=== PATIENT | male | born 1985 | race Caucasian/White ===

== ENCOUNTER → 2018-10-15 09:23 | Outpatient (CLI) | payer OTHER, SELFPAY ==
--- NOTE | 2018-10-18 11:50 | PM.PFT.1 ---
Pulmonary Function Test Referral & Results Date Patient Seen: 10/15/18 Requesting provider: Jacob Rahman Indication: Pre chemo Results: The spirometry demonstrates an FVC of 5.30 L which is 104% of predicted. The FEV1 was measured at 4.30 L which is 104% of predicted. The FEV1/FVC ratio was 81 which is 100% of predicted. Following the administration of bronchodilator there was no appreciable change to above normal numbers. Lung volumes show an SVC of 6.08 L which is 124% of predicted. The diffusing capacity was measured at 32.20 which is 108% of predicted. The maximum voluntary ventilation was normal Interpretation: This study demonstrates normal pulmonary function
== END ==
PROVIDERS: Visit Provider Internal Medicine Hematology & Oncology
DX: C61 Malignant neoplasm of prostate (principal)
CPT/HCPCS: 94060; 94726; 94729

== ENCOUNTER 2018-10-24 11:10 | Day surgery (SDC) | payer OTHER, SELFPAY ==
[2018-10-24] VITALS (8 sets, daily range): BP systolic 97–125; BP diastolic 54–78; PULSE 54–108; RESP 11–16; TEMP 36.3–36.8; O2SAT 94–99; BMI 24.1
--- NOTE | 2018-10-24 | DI.RAD.S_ITS ---
PROCEDURE: XR CHEST 1V INDICATIONS: PORT A CATH TECHNIQUE: One view of the chest was acquired. COMPARISON: None. FINDINGS: Surgical changes and devices: Left chest wall Port-A-Cath has been placed. Tip of the Port-A-Cath projects to the mid SVC. Lungs and pleura: No pleural effusions or pneumothorax. Lungs are clear. Mediastinum: Mediastinal contours appear normal. Heart size is normal. Bones and chest wall: No suspicious bony lesions. Overlying soft tissues appear unremarkable. IMPRESSION: Status post placement of left chest wall Port-A-Cath. Dictated by: Aline Lindsey MD, PhD on 10/24/2018 at 16:23 Approved by: Aline Lindsey MD, PhD on 10/24/2018 at 16:25
[2018-10-24] MEDS: LACTATED RINGERS 1,000 ML 42 ML IV (12:18)
[2018-10-24] MEDS: CEFAZOLIN 2 GM/100 ML FROZ.PIGGY IV (15:17)
--- NOTE | 2018-10-24 15:21 | PM.HP.1 ---
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 He presents today to undergo a Port-A-Cath placement. He denies any new problems or symptoms. He denies any sick contacts. He reports he generally feels well today. Patient History Medical History Seminoma of descended right testis (Acute ~06/05/18) Testicular pain, right (Acute ~04/2018) Surgical History History of facial surgery (Acute) History of orchiectomy, unilateral (Acute 05/04/18) Family & Social History Family History: Reviewed 10/24/18 by Paola Veliz MD Social History: household members significant other Tobacco & Substance use: Smoking Status Never smoker alcohol intake current alcohol intake frequency a few times a week Substance Use Type does not use Meds Home Medications Medication Instructions Recorded Confirmed Type ondansetron 8 mg PO BID-TID PRN #20 tab 10/24/18 10/24/18 Rx prochlorperazine maleate 10 mg PO Q6-8H PRN #30 tab 10/24/18 10/24/18 Rx [Compazine] Allergies Allergy/AdvReac Type Severity Reaction Status Date / Time No Known Drug Allergies Allergy Verified 10/05/18 17:06 Review of Systems Review of Systems All systems reviewed & are unremarkable except as noted in HPI and below Exam Vital Signs (past 8 hours): - 10/24/18 11:52 Temperature 97.6 F Pulse Rate 108 H Respiratory Rate 16 Blood Pressure 125/64 Pulse Oximetry 98 Oxygen Delivery Method Room Air Narrative Exam Narrative: Very pleasant and healthy-appearing gentleman in no distress HEENT: Normocephalic and atraumatic, pupils equal round reactive to light accommodation with anicteric sclera Lungs: Clear to auscultation bilaterally Heart: Regular rate and rhythm without murmur rub or gallop Abdomen: Soft, nontender, active bowel sounds Extremities: Warm and well perfused Assessment & Plan Plan: Assessment/Plan Narrative: Pleasant 33-year-old gentleman with recurrent seminoma. We discussed the risks and benefits of port placement the patient expressed desire to complete the procedure today.
--- NOTE | 2018-10-24 15:37 | SUR.OPER ---
Supine on padded OR bed, head on pillow, arm padded and tucked at side, legs uncrossed, safety belt at thigh, tape over blanket over lower legs .
[2018-10-24] MEDS: LIDOCAINE 1% W/EPI INJ 20 ML INJ (15:42)
[2018-10-24] MEDS: SODIUM CHLORIDE 0.9% FLUSH 10 ML IV (15:43)
[2018-10-24] MEDS: BUPIVACAINE 0.5% (PF) VIAL 30 ML INJ (15:43)
--- NOTE | 2018-10-24 19:34 | PM.OP.1 ---
Operative Date/Time/Diagnoses Date of procedure: 10/24/18 Time of procedure: 15:34 Pre-op diagnosis: Recurrent testicular cancer Post-op diagnosis: same Procedure & Clinicians Procedure: Left subclavian PowerPort placement Same procedure as scheduled: Yes Indications: Malignancy requiring chemotherapy Surgeon: Paola Veliz Anesthesia Type: General (Dr. Carrasco) Operative Notes Findings: Left subclavian power port in good position in the superior vena cava Closure Type: primary Specimen(s): none sent Implants & Drains: Low-profile power port Estimated Blood Loss (mL): 10 Procedure in detail: After obtaining informed consent, the patient was brought to the operating room and placed in the supine position on the operating table. Following successful induction of general endotracheal anesthesia, appropriate padding of all bony prominences, and placement of appropriate monitors, the left chest was prepped and draped in a standard surgical fashion. A timeout was held per SCOAP protocol. A mixture of local anesthetics was infiltrated in the deltopectoral groove on the left side. The right subclavian vein was accessed via the Seldinger technique and a wire was gently placed into the vein. Fluoroscopy was used to verify position of the wire in the subclavian vein. We next created a pocket of approximately 2 cm inferior to the access site of the vein. This was checked for size and found to fit the port nicely. The included tunneling device was used to place the tubing and the pocket connecting it to the access site of the subclavian vein. The tubing was trimmed to an appropriate length and connected to the Port-A-Cath. The Port-A-Cath was sewn into place in the pocket using interrupted Prolene sutures. The pocket was closed in 2 layers. The dilator and introducer were then gently passed over the wire and into the subclavian vein. The wire and dilator were removed leaving only the introducer. The tubing was then placed in the introducer and the introducer removed per supervisor major appliance assembly's directions. The port was then flushed with saline solution and found to be functional and in good position. It was then hep-locked with 2000 units of heparin. The incision was closed in 2 layers with Vicryl and Monocryl sutures. Dermabond was applied to the skin. All sponge, needle, and instrument counts were correct at the conclusion of the case. Patient was allowed to awaken from anesthesia and taken to the post-anesthesia care unit in good condition. Complications: none Condition: stable Disposition: PACU Plan for aftercare: 1. Discharge to home 2. The port is ready for use
== END 2018-10-24 17:16 | disposition home or self-care (01) ==
PROVIDERS: Visit Provider Surgery
PROC: (CPT 36561; principal; 2018-10-24 15:00)
DX: C62.91 Malignant neoplasm of right testis, unspecified whether descended or undescended (principal); Z45.2 Encounter for adjustment and management of vascular access device
CPT/HCPCS: 36561; 71045; 76000; 99213; C1788; J0690; J1644; J2250; J2405; J2704; J3010

== ENCOUNTER → 2018-12-03 09:03 | Outpatient (CLI) | payer OTHER, SELFPAY ==
--- NOTE | 2018-12-03 10:06 | DI.CT.S_ITS ---
PROCEDURE: CT CHEST ABD PEL W CON INDICATIONS: check response to treatment TECHNIQUE: After the administration of oral and intravenous contrast, 5 mm thick sections acquired from the lung apices to the symphysis. 5 mm coronal and sagittal reformats were performed, with additional 7 mm coronal MIP reformats through the lungs. For radiation dose reduction, the following was used: automated exposure control, adjustment of mA and/or kV according to patient size. COMPARISON: None. FINDINGS: Image quality: Excellent. CHEST: Lungs and pleura: No acute airspace opacities. No lung nodules or masses. No pleural effusions or pneumothorax. Central and peripheral airways appear patent and normal in caliber. Mediastinum: Heart size is normal. No pericardial effusion. No mediastinal or hilar adenopathy by size criteria. Thoracic aorta and central pulmonary arteries are normal in size. Esophagus is normal in caliber. No hiatal hernia. Chest wall: Left chest wall Port-A-Cath is noted with tip ending in the proximal SVC. No axillary or supraclavicular adenopathy by size criteria. Thyroid gland is normal where visualized. ABDOMEN: Solid organs: Liver is normal in size and enhancement. Gallbladder is normal. Biliary system is non dilated. Pancreas enhances normally. Spleen is normal in size and enhancement. No adrenal nodules. Kidneys demonstrate normal size and enhancement, without hydronephrosis. A 1-2 mm nonobstructing left renal stone. The appendix is normal. Peritoneum and bowel: Bowel loops demonstrate normal wall thickness and caliber. No free fluid or air. Nodes and vessels: No retroperitoneal or mesenteric adenopathy by size criteria. Aorta and inferior vena cava are normal in size. Miscellaneous: No ventral hernias. PELVIS: Genitourinary: Bladder wall thickness is normal. Miscellaneous: No inguinal hernias or adenopathy. Bones: No suspicious bony lesions. No vertebral body compression fractures. IMPRESSION: 1. No evidence of metastatic disease. 2. No lymphadenopathy based on size criteria. 3. 1-2 mm nonobstructing left renal stone. Dictated by: Aline Lindsey MD, PhD on 12/03/2018 at 10:40 Approved by: Aline Lindsey MD, PhD on 12/03/2018 at 10:46
== END ==
DX: C62.91 Malignant neoplasm of right testis, unspecified whether descended or undescended (principal); N20.0 Calculus of kidney
CPT/HCPCS: 71260; 74177; Q9967

== ENCOUNTER 2018-12-15 19:45 | Emergency (ER) | payer OTHER, SELFPAY ==
[2018-12-15 20:05] VITALS: BP 111/73; PULSE 82; RESP 16; TEMP 37.5; O2SAT 98
--- NOTE | 2018-12-15 20:21 | DI.RAD.S_ITS ---
PROCEDURE: XR CHEST 1V INDICATIONS: suspected sepsis TECHNIQUE: One view of the chest was acquired. COMPARISON: [facility], CR, XR CHEST 1V, 10/24/2018, 16:32. FINDINGS: Surgical changes and devices: Left subclavian Mediport in stable position. Lungs and pleura: Lungs are clear. No pleural effusions or pneumothorax. Mediastinum: Mediastinal contours appear normal. Heart size is normal. Bones and chest wall: No suspicious bony lesions. Overlying soft tissues appear unremarkable. IMPRESSION: No acute parenchymal consolidation.. Dictated by: Lucy Silverman M.D. on 12/15/2018 at 21:00 Approved by: Lucy Silverman M.D. on 12/15/2018 at 21:01
[2018-12-15] MEDS: ONDANSETRON 4 MG/2 ML INJ IV (21:05)
[2018-12-15] MEDS: SODIUM CHLORIDE 0.9% 1,000 ML 1000 ML IV ×2 (21:05→23:28)
[2018-12-15 21:16] LABS: Add Manual Diff / Slide Review NO; Basophils Absolute Auto 0 /uL (0-100); Eosinophils Absolute Auto 0 /uL (0-450); Eosinophils Percent Auto 0.2 % (2-4); Hematocrit 34.2 % (41-53); Hemoglobin 12.1 g/dL (13.5-17.5); Lymphocytes Absolute Auto 1000 /uL (1100-4500); Mean Corpuscular HGB Conc 35.3 % (30-36); Mean Corpuscular Hemoglobin 32.3 PG (26-34); Mean Corpuscular Volume 91.5 fL (80-100); Monocytes Absolute Auto 100 /uL (0-900); Monocytes Percent Auto 1.4 % (3-14); Neutrophils Absolute Auto 2800 /uL (1500-7000); Neutrophils Percent Auto 73.4 % (50-75); Platelet Count 342 X10^3/uL (150-400); Red Blood Cell Count 3.74 X10^6/uL (4.5-5.9); Red Cell Distribution Width 14.6 % (11.6-14.8); White Blood Cell Count 3.8 X10^3/uL (4.5-11.0)
[2018-12-15 21:19] LABS: Lactate (Lactic Acid) 0.8 mmol/L (0.7-2.1); PTT Partial Thromboplastin Tim 26 SECONDS (26.4-36.2)
[2018-12-15 21:28] VITALS: BP 105/68; PULSE 63; RESP 13; O2SAT 94
[2018-12-15 21:39] LABS: Procalcitonin < 0.05 ng/mL (<0.5)
[2018-12-15 22:00] VITALS: BP 110/69; PULSE 68; RESP 16; O2SAT 98
--- NOTE | 2018-12-15 22:01 | ED_ITS ---
HPI - Nausea/Vomiting/Diarrhea General Chief complaint: Nausea/Vomiting/Diarrhea Stated complaint: cancer patient,vomiting Time Seen by Provider: 12/15/18 21:50 Source: patient Mode of arrival: ambulatory Limitations: no limitations History of Present Illness HPI Narrative: The patient was started on chemotherapy October 2018 for testicular cancer. He is followed locally by Dr. Ivy, oncology. He developed nausea and vomiting today, multiple episodes. He has antiemetics at home, he actually vomited Zofran. He has had a little bit of fluid today, he has had urine output. He denies associated fever or chills. His last dose of chemo meds was , 2 days ago. He has had no dizziness, visual changes or headaches. He denies chest pain or dyspnea. He has mild upper abdominal pain with the vomiting. He has no diarrhea. He has no hematemesis. Related Data Home Medications Medication Instructions Recorded Confirmed ibuprofen [Advil] 400 mg PO QID PRN 11/20/18 11/20/18 Miralax 17 g PO DAILY PRN 12/13/18 12/13/18 docusate sodium 2 cap PO DAILY PRN MDD 300 mg 12/13/18 12/13/18 Previous Rx's Medication Instructions Recorded lidocaine-prilocaine 1 applictn TOP PRN PRN #30 gram 10/24/18 ondansetron 8 mg PO BID-TID PRN #20 tab 10/24/18 oxycodone-acetaminophen [Percocet] 1 tab PO Q4-6H PRN #14 tab MDD 4 10/24/18 prochlorperazine maleate 10 mg PO Q6-8H PRN #30 tab 10/24/18 [Compazine] levofloxacin 500 mg PO DAILY #14 tab 12/03/18 lorazepam [Ativan] 0.5 mg PO BID-TID PRN #30 tab 12/12/18 Allergies Allergy/AdvReac Type Severity Reaction Status Date / Time No Known Drug Allergies Allergy Verified 12/15/18 20:09 Review of Systems Review of Systems ROS Unobtainable: All systems reviewed & are unremarkable except as noted in HPI and below Constitutional Denies chills, Denies fever(s), Denies lethargy, Denies weakness and Reports other ( he looks fatigued) Eyes Denies change in vision, Denies eye discharge and Denies irritation ENT Ears, Nose, Mouth, and Throat: Denies change in voice, Denies neck pain and Denies sore throat Cardiovascular Denies chest pain, Denies irregular heart rhythm, Denies lightheadedness, Denies palpitations, Denies dyspnea, Denies dyspnea on exertion and Denies orthopnea Respiratory Denies cough, Denies dyspnea, Denies dyspnea on exertion and Denies wheezing Gastrointestinal Gastrointestinal: Reports abdominal pain, Denies diarrhea, Denies loose stools, Reports nausea, Reports vomiting and Denies hematemesis Genitourinary Reports other ( normal urine output, no discomfort) Musculoskeletal Denies back pain and Denies neck pain Integumentary/Breasts Denies pruritus, Denies erythema, Denies rash and Denies wounds Neurologic Denies weakness Endocrine Denies palpitations Allergic/Immunologic Denies wheezing [facility] Medical History Testicular cancer (Acute) Seminoma of descended right testis (Acute ~06/05/18) Testicular pain, right (Acute ~04/2018) Surgical History History of facial surgery (Acute) History of orchiectomy, unilateral (Acute 05/04/18) Family History Grandmother Lung cancer Oral cancer Other Testicular cancer Social History household members: significant other Smoking Status: Never smoker alcohol intake: current substance use type: does not use Family History Grandmother Lung cancer Oral cancer Other Testicular cancer Social History household members: significant other Smoking Status: Never smoker alcohol intake: current substance use type: does not use Exam Initial Vital Signs Initial Vital Signs: Vital Signs Temperature 99.5 F 12/15/18 20:05 Pulse Rate 82 12/15/18 20:05 Respiratory Rate 16 12/15/18 20:05 Blood Pressure 111/73 12/15/18 20:05 Pulse Oximetry 98 12/15/18 20:05 Const General: cooperative, well developed and well groomed Nutritional Appearance: well nourished Orientation: alert, awake, oriented x3 and not confused [facility] Head: normocephalic and atraumatic Ears: external ears normal and TM's normal bilaterally Nose: external nose normal and No nasal discharge Face and sinus: sinuses nontender, face symmetric, no sinus tenderness and No dry mucous membranes Mouth: oral mucosae normal and moist mucous membranes Teeth and gingiva: dentition normal Throat: tonsils normal and uvula midline Eyes Conjunctivae: conjunctivae normal Neck Lymphatic: No lymphadenopathy Chest Chest: normal inspection of the chest Resp Effort & Inspection: normal respiratory effort, able to speak in complete sentences, no respiratory distress and no use of accessory muscles Auscultation: clear to auscultation bilaterally, no rales, no rhonchi and no wheezes Cardio Rate: regular rate Rhythm: regular rhythm Heart Sounds: no click, no gallops, no murmurs and no rubs Pulses: normal peripheral pulses GI Inspection: non-distended Palpation: soft, no hepatosplenomegaly, No pulsatile mass and tender ( mild upper abdominal tenderness without guarding or rebound.) Auscultation: normal bowel sounds Back/Spine/Pelvis Back: No CVA tenderness Skin General: no rashes or lesions noted, No jaundice and No petechiae Neuro General: alert, oriented x3, gait normal and no focal motor deficits Speech: speech normal Extrem General: full ROM, no clubbing, cyanosis or edema, no pedal edema and no calf tenderness Course Orders Ordered: ED Orders 12/15/18 20:21 XR chest 1V Stat 12/15/18 20:50 Blood Culture Stat Complete Blood Count AUTO DIFF Stat Comprehensive Metabolic Panel Stat Lactate (Lactic Acid) Stat Lipase Stat Partial Thromboplastin Time Stat Procalcitonin Stat Prothrombin Time INR Stat Discontinued Medications Sodium Chloride (Normal Saline 0.9%) 1,000 mls @ 1,000 mls/hr IV BOLUS ONE Stop: 12/15/18 21:19 Last Infusion: 12/15/18 23:26 Dose: 0 mls/hr Admin: 12/15/18 21:05 Dose: 1,000 mls/hr Sodium Chloride (Normal Saline 0.9%) 1,000 mls @ 1,000 mls/hr IV BOLUS ONE Stop: 12/16/18 00:09 Last Admin: 12/15/18 23:28 Dose: 1,000 mls/hr Ondansetron HCl (Zofran) 4 mg IV NOW ONE Stop: 12/15/18 20:22 Last Admin: 12/15/18 21:05 Dose: 4 mg Vital Signs - 8 hr 12/15/18 20:05 12/15/18 21:28 12/15/18 22:00 Temperature 99.5 F Pulse Rate 82 63 68 Respiratory Rate 16 13 16 Blood Pressure 111/73 Blood Pressure [Left Arm] 105/68 110/69 Pulse Oximetry 98 94 98 12/15/18 22:37 12/16/18 00:05 Temperature Pulse Rate 68 63 Respiratory Rate 16 16 Blood Pressure Blood Pressure [Left Arm] 110/66 103/64 Pulse Oximetry 91 95 MDM - Nausea/Vomiting/Diarrhea Lab Data Result diagrams: 12/15/18 20:50 12/15/18 20:50 Lab Results 12/15/18 12/15/18 12/15/18 Range/Units 20:50 20:50 20:50 WBC 3.8 L (4.5-11.0) X10^3/uL RBC 3.74 L (4.5-5.9) X10^6/uL Hgb 12.1 L (13.5-17.5) g/dL Hct 34.2 L (41-53) % MCV 91.5 D (80-100) fL MCH 32.3 (26-34) PG MCHC 35.3 (30-36) % RDW 14.6 (11.6-14.8) % Plt Count 342 (150-400) X10^3/uL Neut % (Auto) 73.4 (50-75) % Lymph % (Auto) 25.0 (25-40) % [place] % (Auto) 1.4 L (3-14) % Eos % (Auto) 0.2 L (2-4) % Baso % (Auto) 0.0 (0-2) % Neut # (Auto) 2800 (7774-4235) /uL Lymph # (Auto) 1000 L (4994-2436) /uL [place] # (Auto) 100 (0-900) /uL Eos # (Auto) 0 (0-450) /uL Baso # (Auto) 0 (0-100) /uL PT 12.0 (10.1-12.7) SECONDS INR 1.0 (0.9-1.3) APTT 26 L (26.4-36.2) SECONDS Sodium (137-145) mmol/L Potassium (3.4-5.1) mmol/L Chloride (98-107) mmol/L Carbon Dioxide (22-32) mmol/L BUN (9-20) mg/dL Creatinine (0.66-1.25) mg/dL Estimated GFR (>60) mL/min BUN/Creatinine Ratio (6-22) Glucose (70-100) mg/dL Lactate (0.7-2.1) mmol/L Calcium (8.4-10.2) mg/dL Total Bilirubin (0.2-1.3) mg/dL AST (17-59) IU/L ALT (21-72) IU/L Alkaline Phosphatase (38-126) U/L Total Protein (6.3-8.2) g/dL Albumin (3.5-5.0) g/dL Globulin (1.7-4.1) g/dL Albumin/Globulin Ratio (1.0-2.8) Lipase (23-300) U/L Procalcitonin < 0.05 (<0.5) ng/mL 12/15/18 12/15/18 Range/Units 20:50 20:50 WBC (4.5-11.0) X10^3/uL RBC (4.5-5.9) X10^6/uL Hgb (13.5-17.5) g/dL Hct (41-53) % MCV (80-100) fL MCH (26-34) PG MCHC (30-36) % RDW (11.6-14.8) % Plt Count (150-400) X10^3/uL Neut % (Auto) (50-75) % Lymph % (Auto) (25-40) % [place] % (Auto) (3-14) % Eos % (Auto) (2-4) % Baso % (Auto) (0-2) % Neut # (Auto) (6191-5658) /uL Lymph # (Auto) (1114-6790) /uL [place] # (Auto) (0-900) /uL Eos # (Auto) (0-450) /uL Baso # (Auto) (0-100) /uL PT (10.1-12.7) SECONDS INR (0.9-1.3) APTT (26.4-36.2) SECONDS Sodium 140 (137-145) mmol/L Potassium 3.8 (3.4-5.1) mmol/L Chloride 99 (98-107) mmol/L Carbon Dioxide 30 (22-32) mmol/L BUN 18 (9-20) mg/dL Creatinine 0.70 (0.66-1.25) mg/dL Estimated GFR > 60.0 (>60) mL/min BUN/Creatinine Ratio 25.7 H (6-22) Glucose 92 (70-100) mg/dL Lactate 0.8 (0.7-2.1) mmol/L Calcium 9.6 (8.4-10.2) mg/dL Total Bilirubin 1.5 H (0.2-1.3) mg/dL AST 47 (17-59) IU/L ALT 69 (21-72) IU/L Alkaline Phosphatase 66 (38-126) U/L Total Protein 7.1 (6.3-8.2) g/dL Albumin 4.5 (3.5-5.0) g/dL Globulin 2.6 (1.7-4.1) g/dL Albumin/Globulin Ratio 1.7 (1.0-2.8) Lipase 26 (23-300) U/L Procalcitonin (<0.5) ng/mL MDM Narrative Medical decision making narrative: The patient is vomiting likely associated with chemotherapy. He has Compazine and Zofran available at home. The medications have not helped much today. He has improved with IV hydration, and IV antiemetics. He is improved and will be discharged. Discharge Plan Departure Patient Disposition: Home Clinical Impression: Vomiting due to chemotherapy Instructions: DI for Dehydration -- Adult Activity Restrictions/Additional Instructions: Use the prescribed nausea medications as prescribed. You can use the Zofran as often as every 4-6 hours if necessary. Be sure you're drinking plenty of fluids, he should have clear urine output every 3-4 hours. Return here any time you need assistance. Prescriptions: No Action ondansetron 8 mg Tablet,Disintegrating 8 mg PO BID-TID PRN (Reason: Nausea) Qty: 20 RF: 2 prochlorperazine maleate [Compazine] 10 mg Tablet 10 mg PO Q6-8H PRN (Reason: Nausea) Qty: 30 RF: 2 ibuprofen [Advil] 200 mg Tablet 400 mg PO QID PRN (Reason: Pain (Scale Score 1-3)) RF: 0 levofloxacin 500 mg Tablet 500 mg PO DAILY Qty: 14 RF: 0 lorazepam [Ativan] 0.5 mg Tablet 0.5 mg PO BID-TID PRN (Reason: Nausea) Qty: 30 RF: 0 Miralax powder 17 g PO DAILY PRN (Reason: Constipation) RF: 0 docusate sodium 100 mg 2 cap PO DAILY MDD 300 mg PRN (Reason: Constipation) RF: 0 lidocaine-prilocaine 2.5-2.5 % cream 1 applictn TOP PRN PRN (Reason: pain) Qty: 30 RF: 2 oxycodone-acetaminophen [Percocet] 5-325 mg tablet 1 tab PO Q4-6H MDD 4 PRN (Reason: pain) Qty: 14 RF: 0
--- NOTE | 2018-12-15 22:18 | PC.NURSE ---
Late Entry at 2039-Port a suman on L chest access by using sterile technique and labs drawn including lactic and a set of blood culture.
--- NOTE | 2018-12-15 22:23 | PC.NURSE ---
Late entry at 2200- pt has been sipping Sprite and able to tolerate it w/o vomiting. Reports nausea improved alot. Arcelia delcid provided for cramping hunger pain in upper abdomen after verifying it with Dr. Bach.
[2018-12-15 22:32] LABS: Alanine Aminotransferase 69 IU/L (21-72); Albumin 4.5 g/dL (3.5-5.0); Albumin Globulin Ratio 1.7 (1.0-2.8); Alkaline Phosphatase 66 U/L (38-126); Aspartate Aminotransferase 47 IU/L (17-59); BUN Creatinine Ratio 25.7 (6-22); Bilirubin Total 1.5 mg/dL (0.2-1.3); Blood Urea Nitrogen 18 mg/dL (9-20); Calcium 9.6 mg/dL (8.4-10.2); Carbon Dioxide 30 mmol/L (22-32); Chloride 99 mmol/L (98-107); Estimated Glomerular Filt Rate > 60.0 mL/min (>60); Globulin 2.6 g/dL (1.7-4.1); Glucose 92 mg/dL (70-100); HEMOLYSIS 16 (0-50); Lipase 26 U/L (23-300); Potassium 3.8 mmol/L (3.4-5.1); Sodium 140 mmol/L (137-145); Total Protein 7.1 g/dL (6.3-8.2)
[2018-12-15 22:37] VITALS: BP 110/66; PULSE 68; RESP 16; O2SAT 91
[2018-12-15 23:00] VITALS: BP 103/64; PULSE 64; RESP 16; O2SAT 95
--- NOTE | 2018-12-15 23:05 | PC.NURSE ---
Tamara (spouse) states pt has a history of atypical migraine, hemiplegic migraine. In the past pt had received TPA for mimicking stroke symptoms but unaware of seizures. Tamara reports pt has been having weakness in L extremities and has been falling alot and trouble with balancing as well. He is currently waiting for occupational therapy for decreased hands functions
--- NOTE | 2018-12-15 23:23 | PC.NURSE ---
Late Entry at 2315-Dr Bach has difficult time waking up. Pt finally woke up from sleep and able to follow commands after repeated attempt and spouse states it takes a while for patient to wake up from sleep at home as well.
[2018-12-15 23:30] VITALS: BP 109/69; PULSE 64; RESP 16; O2SAT 95
[2018-12-16 00:05] VITALS: BP 103/64; PULSE 63; RESP 16; O2SAT 95
[2018-12-16 00:33] VITALS: BP 109/69; PULSE 71; RESP 21; O2SAT 98
== END 2018-12-16 00:48 | disposition home or self-care (01) ==
PROVIDERS: Emergency Medicine; Emergency Provider Emergency Medicine
DX: R11.10 Vomiting, unspecified (principal); T45.1X5A Adverse effect of antineoplastic and immunosuppressive drugs, initial encounter
CPT/HCPCS: 36415; 71045; 80053; 83605; 83690; 84145; 85025; 85610; 85730; 87040; 96361; 96374; 96375; 99284; J1642; J2405

== ENCOUNTER → 2019-02-18 08:15 | Outpatient (CLI) | payer OTHER, SELFPAY ==
--- NOTE | 2019-02-18 08:23 | DI.CT.S_ITS ---
PROCEDURE: CT CHEST ABD PEL W CON INDICATIONS: testicular cancer TECHNIQUE: After the administration of oral and intravenous contrast, 5 mm thick sections acquired from the lung apices to the symphysis. 5 mm coronal and sagittal reformats were performed, with additional 7 mm coronal MIP reformats through the lungs. For radiation dose reduction, the following was used: automated exposure control, adjustment of mA and/or kV according to patient size. COMPARISON: [facility], CT, CT CHEST ABD PEL W CON, 12/03/2018, 10:10. FINDINGS: Image quality: Excellent. CHEST: Lungs and pleura: No acute airspace opacities. No pleural effusions or pneumothorax. Central and peripheral airways appear patent and normal in caliber. Mediastinum: Heart size is normal. No pericardial effusion. No mediastinal or hilar adenopathy by size criteria. Thoracic aorta and central pulmonary arteries are normal in size. Esophagus is normal in caliber. There is a small hiatal hernia. Chest wall: No axillary or supraclavicular adenopathy by size criteria. Thyroid gland demonstrates no significant CT abnormality. There is a left-sided chest port is seen, with the tip within the superior to mid aspect of the superior vena cava. ABDOMEN: Solid organs: Liver is normal in size and enhancement. Gallbladder wall is not thickened. Biliary system is non dilated. Pancreas enhances normally. Spleen is normal in size and enhancement. Incidental note is made of an accessory spleen along the hilum of the primary spleen. No adrenal nodules. Kidneys demonstrate normal size and enhancement, without hydronephrosis. There is a 2 mm nonobstructing left kidney stone seen, as on series 2 image 72. Peritoneum and bowel: Bowel loops demonstrate normal wall thickness and caliber. No free fluid or air. Nodes and vessels: No retroperitoneal or mesenteric adenopathy by size criteria. Aorta and inferior vena cava are normal in size. Miscellaneous: A mild periumbilical hernia is seen, containing fat. PELVIS: Genitourinary: The bladder wall demonstrates circumferential thickening. Right orchectomy changes are partially seen. Miscellaneous: No inguinal hernias or adenopathy. Bones: No suspicious bony lesions. No vertebral body compression fractures. IMPRESSION: No findings of metastatic disease are seen. Right orchectomy changes are partially seen. Moderate circumferential bladder wall thickening is seen. This may be on the basis of incomplete distention or post treatment changes. Please also correlate with potential cystitis. Incidental note is made of: Small hiatal hernia 2 mm nonobstructing left-sided kidney stone Fat-containing periumbilical hernia Dictated by: Heron Conroy M.D. on 02/18/2019 at 9:42 Approved by: Heron Conroy M.D. on 02/18/2019 at 9:46
== END ==
DX: C62.90 Malignant neoplasm of unspecified testis, unspecified whether descended or undescended (principal); K44.9 Diaphragmatic hernia without obstruction or gangrene; N20.0 Calculus of kidney; K42.9 Umbilical hernia without obstruction or gangrene
CPT/HCPCS: 71260; 74177; Q9967

== ENCOUNTER 2019-04-03 07:20 | Day surgery (SDC) | payer OTHER, SELFPAY ==
[2019-04-03] VITALS (7 sets, daily range): BP systolic 92–114; BP diastolic 58–78; PULSE 50–60; RESP 8–15; TEMP 36.2–36.6; O2SAT 94–100
--- NOTE | 2019-04-03 | PATH_ITS ---
[facility] Accession Number: [id number] . 01 Material submitted: . body - PORT-A-CATH . 01 Clinical history: . FOR GROSS EXAM ONLY . 02 Diagnosis: Designated Port-A-Cath, Removal: in process inspector, gross only diagnosis. MRV/04/08/2019 . 02 Electronically signed: . Adelaide Watts MD, Pathologist NPI- [id number] . 01 Gross description: . Received unfixed, labeled Port-A-Cath, is a romero Bard implantable port (3.0 x 2.2 x 1.0 cm) stamped with [id number]. A segment of catheter (length-21.5 cm, diameter-0.2 cm) is attached. No tissue is present. The specimen is for gross description only. ([id number]) /MRV . 02 Pathologist provided ICD-10: Z45.2 . 02 CPT . 692502 Performed at: 01 [facility] [address] [facility], [place], [place] [id number] MD Margarito Puentes MD Phone: [phone] Performed at: 02 [facility] [address] [place], [place] [id number] MD Adelaide Watts MD Phone: [phone]
--- NOTE | 2019-04-03 08:05 | PM.HP.1 ---
History of Present Illness Date Patient Seen: 04/03/19 Time Patient Seen: 08:05 Chief complaint: [id number] Narrative: Pt seen and examined No changes since H and P on 04/01/19 Port removal for Left subclavian port planned Patient History Medical History (Updated 03/28/19 @ 10:52 by Slime Huggins RN) Port-A-Cath in place (Acute 10/24/18) Seminoma of descended right testis (Acute ~06/05/18) Testicular cancer (Acute) Testicular pain, right (Acute ~04/2018) Surgical History History of facial surgery (Acute) History of orchiectomy, unilateral (Acute 05/04/18) Family History Grandmother Lung cancer Oral cancer Other Testicular cancer Social History household members: significant other Smoking Status: Never smoker alcohol intake: current substance use type: does not use Family & Social History Social History: household members significant other Tobacco & Substance use: Smoking Status Never smoker alcohol intake current alcohol intake frequency a few times a week Substance Use Type does not use Meds Home Medications Medication Instructions Recorded Confirmed Type ketoconazole DAILY 04/03/19 History Allergies Allergy/AdvReac Type Severity Reaction Status Date / Time No Known Drug Allergies Allergy Verified 04/03/19 08:04 Exam Vital Signs (past 8 hours): - 04/03/19 08:00 Temperature 97.9 F Pulse Rate 57 L Respiratory Rate 15 Blood Pressure 113/70 Pulse Oximetry 98 Oxygen Delivery Method Room Air
[2019-04-03] MEDS: LACTATED RINGERS 1,000 ML 100 ML IV (08:13)
[2019-04-03] MEDS: CEFAZOLIN 2 GM/100 ML FROZ.PIGGY IV (08:35)
--- NOTE | 2019-04-03 08:58 | SUR.OPER ---
Supine on padded OR bed, head on pillow, arm padded and tucked at side, legs uncrossed, safety belt at thigh, tape over blanket over lower legs .
[2019-04-03] MEDS: BUPIVACAINE 0.25% W/ EPI 30 ML VIAL INJ (09:06)
--- NOTE | 2019-04-03 09:25 | PM.OP.1 ---
Operative Date/Time/Diagnoses Date of procedure: 04/03/19 Time of procedure: 09:25 Pre-op diagnosis: testicular cancer Post-op diagnosis: same Procedure & Clinicians Procedure: Removal of totally implanted venous access port of the left subclavian Same procedure as scheduled: Yes Indications: 33-year-old man who has completed all planned chemotherapy for his seminomatous testicular cancer. Both he and his oncologist would like the port removed. Surgeon: Hernandez Landrum Click Yes if Unassisted: Yes Anesthesia Type: General Operative Notes Findings: Port easily removed -tip not fractured Closure Type: primary Specimen(s): other (Port for gross identification only) Estimated Blood Loss (mL): 5 Procedure in detail: Patient was brought to the operating room and LMA was placed without incident. He was prepped and draped in usual sterile fashion and time-out was completed. His previously placed port reservoir was readily identified over the left pectoralis major muscle-the insertion scar was reopened with a scalpel. Using Bovie cautery the subcutaneous tissues were dissected until the catheter of the port was identified this was bluntly dissected free of adjacent tissue. I then followed the catheter less than 1 cm inferiorly to identify the reservoir. The pocket was then opened revealing the pseudo capsule. Two permanent sutures were then removed from the upper portion of the reservoir -connecting it to adjacent tissue. The port was then easily flipped out of its pocket. The patient was then placed in steep Trendelenburg position and the catheter was easily removed from the patient. The tip was inspected found to be without fracture. Direct pressure was held on the insertion site to stop bleeding. At this point the reservoir pocket was irrigated. I inspected the area make sure no permanent suture was retained. Hemostasis was confirmed. Local anesthetic was copiously infiltrated into the wound. In elliptical fashion I then excised the previous scar -so that there were fresh tissue edges. I then closed these edges together using a layer of deep dermal 3 0 Vicryl sutures and a subcuticular 3 0 monofilament absorbable suture. Skin glue was applied. The patient was awakened and brought to PACU without incident Complications: none Condition: stable Disposition: PACU Plan for aftercare: Follow-up in office in several weeks
[2019-04-03] MEDS: OXYCODONE/ACETAMINOPHEN 5/325 TABLET 1 TAB PO (10:43)
== END 2019-04-03 11:20 | disposition home or self-care (01) ==
PROVIDERS: PCP Preventive Medicine Public Health & General Preventive Medicine; Visit Provider Surgery
PROC: (CPT 36590; principal; 2019-04-03 08:45)
DX: Z45.2 Encounter for adjustment and management of vascular access device (principal); Z85.47 Personal history of malignant neoplasm of testis
CPT/HCPCS: 36590; 88300; J0690; J2250; J2405; J2704; J3010

== ENCOUNTER → 2019-04-20 10:31 | Outpatient (CLI) | payer OTHER, SELFPAY ==
[2019-04-20 11:01] LABS: Add Manual Diff / Slide Review NO; Basophils Absolute Auto 0 /uL (0-100); Basophils Percent Auto 0.4 % (0-2); Eosinophils Absolute Auto 200 /uL (0-450); Eosinophils Percent Auto 2.3 % (2-4); Hematocrit 44.8 % (41-53); Hemoglobin 15.4 g/dL (13.5-17.5); Lymphocytes Absolute Auto 1400 /uL (1100-4500); Lymphocytes Percent Auto 19.5 % (25-40); Mean Corpuscular HGB Conc 34.4 % (30-36); Mean Corpuscular Hemoglobin 33.3 PG (26-34); Mean Corpuscular Volume 96.7 fL (80-100); Monocytes Absolute Auto 600 /uL (0-900); Monocytes Percent Auto 8.5 % (3-14); Neutrophils Absolute Auto 4900 /uL (1500-7000); Neutrophils Percent Auto 69.3 % (50-75); Platelet Count 167 X10^3/uL (150-400); Red Blood Cell Count 4.63 X10^6/uL (4.5-5.9); Red Cell Distribution Width 11.9 % (11.6-14.8); White Blood Cell Count 7.1 X10^3/uL (4.5-11.0)
[2019-04-20 11:13] LABS: Alanine Aminotransferase 36 IU/L (21-72); Albumin 4.6 g/dL (3.5-5.0); Albumin Globulin Ratio 1.8 (1.0-2.8); Alkaline Phosphatase 98 U/L (38-126); Aspartate Aminotransferase 31 IU/L (17-59); BUN Creatinine Ratio 24.4 (6-22); Bilirubin Total 0.9 mg/dL (0.2-1.3); Blood Urea Nitrogen 22 mg/dL (9-20); Calcium 9.7 mg/dL (8.4-10.2); Carbon Dioxide 27 mmol/L (22-32); Chloride 104 mmol/L (98-107); Estimated Glomerular Filt Rate > 60.0 mL/min (>60); Globulin 2.6 g/dL (1.7-4.1); Glucose 91 mg/dL (70-100); HEMOLYSIS < 15 (0-50); Lactate Dehydrogenase 474 U/L (313-618); Potassium 4.6 mmol/L (3.4-5.1); Sodium 140 mmol/L (137-145); Total Protein 7.2 g/dL (6.3-8.2)
[2019-04-20 11:36] LABS: HCG Quantitative /Beta subunit < 2.39 mIU/mL (-2.40)
== END ==
PROVIDERS: PCP Preventive Medicine Public Health & General Preventive Medicine
DX: C62.90 Malignant neoplasm of unspecified testis, unspecified whether descended or undescended (principal)
CPT/HCPCS: 36415; 80053; 82105; 83615; 84702; 85025

== ENCOUNTER → 2019-05-17 09:03 | Outpatient (CLI) | payer OTHER, SELFPAY ==
--- NOTE | 2019-05-31 16:19 | PM.PFT.1 ---
Pulmonary Function Test Referral & Results Date Patient Seen: 05/17/19 Requesting provider: Andres Corona Results: The spirometry demonstrates an FVC of 5.53 L which is 109% of predicted. The FEV1 was measured at 3.54 L which is 86% of predicted. The FEV1/FVC ratio was 60 for which is 79% of predicted. Following the administration of bronchodilator there was a 29% improvement in FEV1 and a 120% improvement in FEF 25-75%. Lung volumes show an SVC of 5.63 L which is 115% of predicted. The diffusing capacity was measured at 33.31 which is 112% of predicted. The maximum voluntary ventilation was normal Interpretation: This study demonstrates perhaps very mild obstructive lung disease with evidence of significant benefit following bronchodilator. Compared to PFTs performed in September 2018, current study shows evidence of obstructive lung disease where prior study was entirely normal
== END ==
PROVIDERS: PCP Preventive Medicine Public Health & General Preventive Medicine; Visit Provider Preventive Medicine Public Health & General Preventive Medicine
DX: C62.90 Malignant neoplasm of unspecified testis, unspecified whether descended or undescended (principal)
CPT/HCPCS: 94060; 94726; 94729

== ENCOUNTER → 2019-07-11 12:46 | Outpatient (CLI) | payer OTHER, SELFPAY ==
--- NOTE | 2019-07-11 12:51 | DI.RAD.S_ITS ---
PROCEDURE: XR CHEST 2V INDICATIONS: f/u testicular cancer TECHNIQUE: 2 views of the chest were acquired. COMPARISON: [facility], CR, XR CHEST 1V, 12/15/2018, 20:24. FINDINGS: Surgical changes and devices: None. Lungs and pleura: Lungs are clear. No pleural effusions or pneumothorax. Bilateral symmetric appearing nipple shadows Mediastinum: Mediastinal contours are normal. Heart size is normal. Bones and chest wall: No suspicious bony abnormalities. Soft tissues appear unremarkable. IMPRESSION: No acute disease Dictated by: Quang Ma M.D. on 07/11/2019 at 14:59 Approved by: Quang Ma M.D. on 07/11/2019 at 15:00
--- NOTE | 2019-07-11 13:22 | DI.CT.S_ITS ---
PROCEDURE: CT CHEST ABD PEL W CON INDICATIONS: Testicular cancer surveillance TECHNIQUE: After the administration of oral and intravenous contrast, 5 mm thick sections acquired from the lung apices to the symphysis. 5 mm coronal and sagittal reformats were performed, with additional 7 mm coronal MIP reformats through the lungs. For radiation dose reduction, the following was used: automated exposure control, adjustment of mA and/or kV according to patient size. COMPARISON: [facility], CT, CT CHEST ABD PEL W CON, 02/18/2019, 9:24. FINDINGS: Image quality: Excellent. CHEST: Lungs and pleura: No acute consolidation. As the granuloma within the anterior right lung is unchanged. No pleural effusions or pneumothorax. Central and peripheral airways appear patent and normal in caliber. Mediastinum: Heart size is normal. No pericardial effusion. No mediastinal or hilar adenopathy by size criteria. Thoracic aorta and central pulmonary arteries are normal in size. Esophagus is normal in caliber. No hiatal hernia. Chest wall: No axillary or supraclavicular adenopathy by size criteria. Thyroid gland unremarkable. ABDOMEN: Solid organs: Liver is normal in size and enhancement. Gallbladder unremarkable. Biliary system is non dilated. Pancreas enhances normally. Spleen is normal in size and enhancement. No adrenal nodules. Kidneys demonstrate normal size and enhancement, without hydronephrosis. Peritoneum and bowel: Bowel loops demonstrate normal wall thickness and caliber. No free fluid or air. Nodes and vessels: No retroperitoneal or mesenteric adenopathy by size criteria. Aorta and inferior vena cava are normal in size. Tiny fat-containing umbilical hernia. PELVIS: Circumferential bladder wall thickening, grossly unchanged. Miscellaneous: No inguinal hernias or adenopathy. Bones: No suspicious bony lesions. No vertebral body compression fractures. IMPRESSION: No specific evidence of active metastatic disease. Redemonstration of circumferential bladder wall thickening, possible chronic versus recurrent cystitis as before. Please correlate clinically and if needed with urinalysis. Additional chronic and incidental findings as above. Dictated by: Quang Ma M.D. on 07/11/2019 at 16:02 Approved by: Quang Ma M.D. on 07/11/2019 at 16:08
== END ==
PROVIDERS: PCP Preventive Medicine Public Health & General Preventive Medicine; Visit Provider Preventive Medicine Public Health & General Preventive Medicine
DX: C62.90 Malignant neoplasm of unspecified testis, unspecified whether descended or undescended (principal)
CPT/HCPCS: 71046; 71260; 74177; Q9967

== ENCOUNTER → 2020-01-29 10:11 | Outpatient (CLI) | payer OTHER, SELFPAY ==
--- NOTE | 2020-01-29 10:12 | DI.US.S_ITS ---
PROCEDURE: US SCROTUM INDICATIONS: HISTORY OF RIGHT TESTICULAR CA WITH NEW LEFT TESTICULAR PAIN TECHNIQUE: Real-time scanning was performed of the scrotum and testicles, with image documentation. Color and pulse Doppler interrogation was performed of both testicles. COMPARISON: None. FINDINGS: Right: Orchiectomy. Left: Testicle is normal in size at 4 x 1.6 x 2.9 cm, and homogeneous in echotexture. Epididymis is normal in overall size. There is a 5 mm left epididymal cyst. There is a small left-sided hydrocele. No varicoceles. The overlying scrotal skin measures 5 mm in thickness. Doppler: Color and pulse Doppler demonstrate normal and symmetric arterial flow in the left testicle. IMPRESSION: Normal appearing left testicle, with normal appearing internal vascularity. Small left-sided hydrocele. Dictated by: Heron Conroy M.D. on 01/29/2020 at 9:54 Approved by: Heron Conroy M.D. on 01/29/2020 at 9:56
== END ==
PROVIDERS: PCP Preventive Medicine Public Health & General Preventive Medicine; Referring Provider Internal Medicine Hematology & Oncology; Visit Provider Internal Medicine Hematology & Oncology
DX: C62.91 Malignant neoplasm of right testis, unspecified whether descended or undescended (principal); N50.812 Left testicular pain
CPT/HCPCS: 76870; 99214

== ENCOUNTER → 2020-07-14 13:12 | Outpatient (CLI) | payer OTHER, SELFPAY ==
--- NOTE | 2020-07-14 13:15 | DI.CT.S_ITS ---
PROCEDURE: CT CHEST ABD PEL W CON INDICATIONS: right testicular seminoa TECHNIQUE: After the administration of oral and intravenous contrast, 5 mm thick sections acquired from the lung apices to the symphysis. 5 mm coronal and sagittal reformats were performed, with additional 7 mm coronal MIP reformats through the lungs. For radiation dose reduction, the following was used: automated exposure control, adjustment of mA and/or kV according to patient size. COMPARISON: [facility], CT, CT CHEST ABD PEL W CON, 07/11/2019, 13:36. FINDINGS: Image quality: Excellent. CHEST: Lungs and pleura: No acute airspace opacities. No pleural effusions or pneumothorax. Central and peripheral airways appear patent and normal in caliber. Mediastinum: Heart size is normal. No pericardial effusion. No mediastinal or hilar adenopathy by size criteria. Thoracic aorta and central pulmonary arteries are normal in size. Esophagus is normal in caliber. No hiatal hernia. Chest wall: No axillary or supraclavicular adenopathy by size criteria. Thyroid gland negative . ABDOMEN: Solid organs: Liver is normal in size and enhancement. Gallbladder negative . Biliary system is non dilated. Pancreas enhances normally. Spleen is normal in size and enhancement. No adrenal nodules. Kidneys demonstrate normal size and enhancement, without hydronephrosis. Peritoneum and bowel: Bowel loops demonstrate normal wall thickness and caliber. No free fluid or air. Normal appendix. Colonic diverticulosis is seen without evidence of acute complication. Nodes and vessels: No retroperitoneal or mesenteric adenopathy by size criteria. Aorta and inferior vena cava are normal in size. Miscellaneous: No ventral hernias. PELVIS: Genitourinary: Bladder wall thickness is normal. Miscellaneous: No inguinal hernias or adenopathy. Bones: No suspicious bony lesions. No vertebral body compression fractures. IMPRESSION: No evidence of distant metastatic disease identified. Incidental colonic diverticulosis Dictated by: Quang Ma M.D. on 07/14/2020 at 16:16 Approved by: Quang Ma M.D. on 07/14/2020 at 16:22
[2020-07-14 14:37] LABS: Add Manual Diff / Slide Review NO; Basophils Absolute Auto 0 /uL (0-100); Basophils Percent Auto 0.3 % (0-2); Eosinophils Absolute Auto 100 /uL (0-450); Eosinophils Percent Auto 1.7 % (2-4); Hematocrit 43.6 % (41-53); Hemoglobin 14.9 g/dL (13.5-17.5); Lymphocytes Absolute Auto 1800 /uL (1100-4500); Lymphocytes Percent Auto 29.5 % (25-40); Mean Corpuscular HGB Conc 34.1 % (30-36); Mean Corpuscular Hemoglobin 32.5 PG (26-34); Mean Corpuscular Volume 95.3 fL (80-100); Monocytes Absolute Auto 400 /uL (0-900); Monocytes Percent Auto 7.3 % (3-14); Neutrophils Absolute Auto 3700 /uL (1500-7000); Neutrophils Percent Auto 61.2 % (50-75); Platelet Count 195 X10^3/uL (150-400); Red Blood Cell Count 4.57 X10^6/uL (4.5-5.9)
[2020-07-14 14:48] LABS: Alanine Aminotransferase 24 IU/L (<50); Albumin 5.2 g/dL (3.5-5.0); Albumin Globulin Ratio 1.6 (1.0-2.8); Alkaline Phosphatase 69 U/L (38-126); Aspartate Aminotransferase 59 IU/L (17-59); BUN Creatinine Ratio 22.1 (6-22); Bilirubin Total 2.3 mg/dL (0.2-1.3); Blood Urea Nitrogen 17 mg/dL (9-20); Carbon Dioxide 28 mmol/L (22-32); Chloride 100 mmol/L (98-107); Estimated Glomerular Filt Rate > 60.0 mL/min (>60); Globulin 3.2 g/dL (1.7-4.1); Glucose 84 mg/dL (70-100); Lactate Dehydrogenase 1209 U/L (313-618); Sodium 134 mmol/L (137-145); Total Protein 8.4 g/dL (6.3-8.2)
[2020-07-14 14:55] LABS: HEMOLYSIS 318 (0-50); Potassium 5.9 mmol/L (3.4-5.1)
[2020-07-14 15:05] LABS: HCG Quantitative /Beta subunit < 2.4 mIU/mL (-2.40)
[2020-07-15 07:56] LABS: Alpha Fetoprotein 7.9 ng/mL (0.0-8.3)
== END ==
PROVIDERS: PCP Preventive Medicine Public Health & General Preventive Medicine; Referring Provider Internal Medicine Hematology & Oncology; Visit Provider Internal Medicine Hematology & Oncology
DX: C62.91 Malignant neoplasm of right testis, unspecified whether descended or undescended (principal); K57.90 Diverticulosis of intestine, part unspecified, without perforation or abscess without bleeding
CPT/HCPCS: 71260; 74177; 80053; 82105; 83615; 84702; 85025

== ENCOUNTER → 2020-07-23 10:00 | Oncology outpatient (ONC) | payer OTHER, SELFPAY ==
[2018-10-05 11:42] VITALS: BP 120/66; PULSE 69; RESP 18; TEMP 36.4; O2SAT 98
--- NOTE | 2018-10-05 11:49 | ONC.NAV ---
Description: New Pt Intro Activity: Met with pt and his to introduce myself and the Pt [facility]/OBSTETRICS SPECIALIST, offer services card, and establish initial rapport. Pt indicated interest in learning about resource assistance for transportation and financial assistance while in treatment. OBSTETRICS SPECIALIST discussed the availability of the [employer] as a resource to provide rides to and from treatment, as well as the [employer] to assist with fuel costs and other supportive medical-related needs throughout treatment. They plan to f/u with this OBSTETRICS SPECIALIST once a plan has been established for his care with Dr. Rahman.
--- NOTE | 2018-10-05 11:50 | ONC.CONS ---
History of Present Illness - Data of Consult Patient: new to practice Consult date: 10/05/18 Requesting Physician: Yohannes Cruz MD. Primary Care Provider: Yohannes Cruz MD. - Consult Narrative Reason for consult: Right testicular pure seminoma Narrative: Julian Gandara is a 33 year old male. He presented with right testicular pain in mid April2018. 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 According to patient, all tumor markers were negative. He underwent right radical orchiectomy on 05/04/[address] Jolly. The tumor size was 41x 27 x 20 mm, no LVI or tunica or cord invasion. Postoperative chemotherapy, radiation treatment, and clinical trials were discussed with the patient. Patient elected for active surveillance. On 05/11/[address] scan of the abdomen and pelvis there were scattered mesenteric lymph nodes that were non pathologic by CT size criteria. On 08/20/[address] scan of the abdomen and pelvis with contrast. There is an index less than 4 mm solid noncalcified granuloma within the right upper lobe, within the right paracaval region, a new focal rounded hypodense peripherally enhancing mass measuring 2.2 x 2.3 x 2.4 cm was noted and and increased somewhat ill-defined pericaval soft tissue measuring 1.3 x 1.2 cm. These findings were new compared to previous image on 05/11/2018. Brain MRI on 08/21/2018 showed no evidence of metastasis. He underwent PET-CT on 08/29/2018. The PET-CT showed previously described necrotic right pericaval lymph is decreased in size measuring 1.7 x 1 4 cm compared with 2.3 and 2.2 cm most recent comparison also with mild increased metabolic activity with an SUV max 3.3 ill-defined region of soft tissue fullness interposed between the aorta and IVC at the level of the lower renal poles remained present on his current PET-CT and similar to prior with associated low level metabolic activity. There is no new metabolically active lymph nodes all lymph nodes enlarged by size criteria within the abdomen or retroperitoneum His tumor markers were as follows: On 06/01/2018 AFP 6.1 BHCG < 1 On 07/09/2018 AFP 6.1, BHCG < 1 On 08/21/2018 AFP 6.3, BHCG < 1 Yesterday, he was evaluted by Dr. Julian Jenkins at [facility]. Chemotherapy with EP x4 or BEP x3 were discussed per olu. I have not received the consult note yet. Patient reports pain?: No Home Medications and Allergies Allergies Allergy/AdvReac Type Severity Reaction Status Date / Time No Known Drug Allergies Allergy Verified 10/05/18 17:06 Medical History - Medical, Surgical, Family History Surgical History: Surgical History (Last Updated 10/05/18 @ 17:04 by Jacob Rahman MD) History of facial surgery History of orchiectomy, unilateral Family History: Family History (Last Updated 10/05/18 @ 17:05 by Jacob Rahman MD) Grandmother Lung cancer Oral cancer Other Testicular cancer - Social History Smoking Status: Never smoker Substance Use Type: does not use Alcohol Intake: current Alcohol Intake Frequency: a few times a week Review of Systems All systems PM: reviewed and no additional remarkable complaints except as stated Exam Vital signs: Temp 97.6 F 10/05/18 11:42 Pulse 69 10/05/18 11:42 Resp 18 10/05/18 11:42 BP 120/66 10/05/18 11:42 Pulse Ox 98 10/05/18 11:42 ECOG 1 Narrative: Constitutional: WDWN, NAD, thin, well groomed, pleasant and cooperative, accompanied by his girlfriend. HEENT: NCAT, EOMI, PERRLA, anicteric sclera, no hearing difficulty; Oral mucus membrane moist and without ulcers. Neck: Supple, symmetrical, and tracheal midline; No palpable thyromegaly and no palpable lymph nodes. Respiratory: No use of accessory muscles. Clear to auscultation, and no wheezes or rales or rubs. Cardiovascular: Regular rate and rhythm, S1 and S2 normal, no murmurs gallops or rubs. No JVD. No pitting edema of lower extremities. Abdomen: Soft, nontender, non-distended, bowel sounds normal, no palpable organomegaly, no hernia, no palpable masses. Lower extremities: No palpable pedal edema. Lymphatic: no palpable lymph nodes in the neck, axillae, or groins. Musculoskeletal: normal gait and station, no clubbing, no cyanosis, no pitting edema. Skin: no rashes, no ulcers, no petechiae Neurological: Awake and alert and oriented x3. CN II-XII grossly intact. No focal motor or sensory deficit. Psychiatric: Good judgment, good insight, normal affect, normal thought process, cooperative, no depression, no anxiety. Genitourinary: Deferred. Results - Labs Reviewed. Assessment and Plan (1) Seminoma of right testis, stage 1 Problem details: Right-sided pure seminoma Stage IA (pT1b N0 M0 S0) status post right radical orchiectomy on 05/04/2018. Assessment: Now patient presents with retroperitoneal lymphadenopathy most likely due to recurrence of his known seminoma. And the current staging is stage IIB (pT1b cN2 cM0 S0). I agree that patient will need adjuvant chemotherapy. I will try to get [facility] consult note. However I talked with the patient that personally I prefer EP x4 other than BP x3 due to the concern for pulmonary toxicity. Patient himself is leaning towards BP x3. He will talk with his oncology nurse at the [facility] before making his final decision regarding which chemotherapy he would like to proceed. I talked with him that for chemotherapy he will need port placement as well as pulmonary function test. Patient has lot of friends visit around [place]. He would like to start the chemotherapy on 10/29/2018. Plan: 1. Consult note from Dr. Jenkins at [facility] 2. Port placement 3. Pulmonary Function Test including DLCO 4. RTC MD 10/25/2018 5. CBC, CMP, LDH, BHCG and AFP prior to PFT 6. Tentatively BEP or EP to be started on 10/29/2018.
--- NOTE | 2018-10-05 12:01 | P.CONONC_ITS ---
History of Present Illness - Data of Consult Patient: new to practice Consult date: 10/05/18 Requesting Physician: Yohannes Cruz MD. Primary Care Provider: Yohannes Cruz MD. - Consult Narrative Reason for consult: Right testicular pure seminoma Narrative: Julian Gandara is a 33 year old male. He presented with right testicular pain in mid April2018. 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 According to patient, all tumor markers were negative. He underwent right radical orchiectomy on 05/04/[address] Jolly. The tumor size was 41x 27 x 20 mm, no LVI or tunica or cord invasion. Postoperative chemotherapy, radiation treatment, and clinical trials were discussed with the patient. Patient elected for active surveillance. On 05/11/[address] scan of the abdomen and pelvis there were scattered mesenteric lymph nodes that were non pathologic by CT size criteria. On 08/20/[address] scan of the abdomen and pelvis with contrast. There is an index less than 4 mm solid noncalcified granuloma within the right upper lobe, within the right paracaval region, a new focal rounded hypodense peripherally enhancing mass measuring 2.2 x 2.3 x 2.4 cm was noted and and increased somewhat ill-defined pericaval soft tissue measuring 1.3 x 1.2 cm. These findings were new compared to previous image on 05/11/2018. Brain MRI on 08/21/2018 showed no evidence of metastasis. He underwent PET-CT on 08/29/2018. The PET-CT showed previously described necrotic right pericaval lymph is decreased in size measuring 1.7 x 1 4 cm compared with 2.3 and 2.2 cm most recent comparison also with mild increased metabolic activity with an SUV max 3.3 ill-defined region of soft tissue fullness interposed between the aorta and IVC at the level of the lower renal poles remained present on his current PET-CT and similar to prior with associated low level metabolic activity. There is no new metabolically active lymph nodes all lymph nodes enlarged by size criteria within the abdomen or retroperitoneum His tumor markers were as follows: On 06/01/2018 AFP 6.1 BHCG < 1 On 07/09/2018 AFP 6.1, BHCG < 1 On 08/21/2018 AFP 6.3, BHCG < 1 Yesterday, he was evaluted by Dr. Julian Jenkins at [facility]. Chemotherapy with EP x4 or BEP x3 were discussed per olu. I have not received the consult note yet. Patient reports pain?: No Home Medications and Allergies Allergies Allergy/AdvReac Type Severity Reaction Status Date / Time No Known Drug Allergies Allergy Verified 10/05/18 17:06 Medical History - Medical, Surgical, Family History Surgical History: Surgical History (Last Updated 10/05/18 @ 17:04 by Jacob Rahman MD) History of facial surgery History of orchiectomy, unilateral Family History: Family History (Last Updated 10/05/18 @ 17:05 by Jacob Rahman MD) Grandmother Lung cancer Oral cancer Other Testicular cancer - Social History Smoking Status: Never smoker Substance Use Type: does not use Alcohol Intake: current Alcohol Intake Frequency: a few times a week Review of Systems All systems PM: reviewed and no additional remarkable complaints except as stated Exam Vital signs: 3 Temp 97.6 F 10/05/18 11:42 Pulse 69 10/05/18 11:42 Resp 18 10/05/18 11:42 BP 120/66 10/05/18 11:42 Pulse Ox 98 10/05/18 11:42 ECOG 1 Narrative: Constitutional: WDWN, NAD, thin, well groomed, pleasant and cooperative, accompanied by his girlfriend. HEENT: NCAT, EOMI, PERRLA, anicteric sclera, no hearing difficulty; Oral mucus membrane moist and without ulcers. Neck: Supple, symmetrical, and tracheal midline; No palpable thyromegaly and no palpable lymph nodes. Respiratory: No use of accessory muscles. Clear to auscultation, and no wheezes or rales or rubs. Cardiovascular: Regular rate and rhythm, S1 and S2 normal, no murmurs gallops or rubs. No JVD. No pitting edema of lower extremities. Abdomen: Soft, nontender, non-distended, bowel sounds normal, no palpable organomegaly, no hernia, no palpable masses. Lower extremities: No palpable pedal edema. Lymphatic: no palpable lymph nodes in the neck, axillae, or groins. Musculoskeletal: normal gait and station, no clubbing, no cyanosis, no pitting edema. Skin: no rashes, no ulcers, no petechiae Neurological: Awake and alert and oriented x3. CN II-XII grossly intact. No focal motor or sensory deficit. Psychiatric: Good judgment, good insight, normal affect, normal thought process , cooperative, no depression, no anxiety. Genitourinary: Deferred. Results - Labs Reviewed. Assessment and Plan (1) Seminoma of right testis, stage 1 Problem details: Right-sided pure seminoma Stage IA (pT1b N0 M0 S0) status post right radical orchiectomy on 05/04/2018. Assessment: Now patient presents with retroperitoneal lymphadenopathy most likely due to recurrence of his known seminoma. And the current staging is stage IIB (pT1b cN2 cM0 S0). I agree that patient will need adjuvant chemotherapy. I will try to get [facility] consult note. However I talked with the patient that personally I prefer EP x4 other than BP x3 due to the concern for pulmonary toxicity. Patient himself is leaning towards BP x3. He will talk with his oncology nurse at the [facility] before making his final decision regarding which chemotherapy he would like to proceed. I talked with him that for chemotherapy he will need port placement as well as pulmonary function test. Patient has lot of friends visit around [place]. He would like to start the chemotherapy on 10/29/2018. Plan: 1. Consult note from Dr. Jenkins at [facility] 2. Port placement 3. Pulmonary Function Test including DLCO 4. RTC MD 10/25/2018 5. CBC, CMP, LDH, BHCG and AFP prior to PFT 6. Tentatively BEP or EP to be started on 10/29/2018.
--- NOTE | 2018-10-05 14:39 | ONC.SCHED ---
Candy Farias from the [employer] base scheduled this appointment about a month ago. Stated it was urgent and that patient was traveling [place] country and we needed to get them in [place] once here. She assured me that the patient would hand carry his records to include scans as well as having his port placed before had. Pt showed up to appointment did not bring records, port was not placed. We also were told by the pt that he was seen at [facility] and that was not communicated so those records were not available at the time of his visit. We saw patient Cindi arranged patient for port placement, PFT and follow up. Candy then called and stated pt did not want to see Dr. Rahman and wanted to transfer over to Dr. Walker and that need to be done stat. I explained to Candy that we didn't have anything until the end of September and that this may also delay treatment. I also suggested that if time was an issue to go back down to [place] until we could fit him in. I shuffled some things and found an appointment with Dr. Walker on the and also double checked with her to make sure that auth was put in for [facility] to receive his port and she assured me it was.
[2018-10-16 09:59] VITALS: BP 130/87; PULSE 70; RESP 19; TEMP 36.9; O2SAT 99
--- NOTE | 2018-10-16 10:48 | ONC.PN ---
PN -Subjective Interval history: Diagnosis: Seminoma, T1b N0 Previous treatment: 1. Orchiectomy in April 2018 Interval history: Patient is a 33-year-old man who returns today for follow-up of seminoma. He presented initially in the summer of 2017 with episodes of recurrent testicular pain. He was thought initially to have had a testicular torsion but had an ultrasound done that showed a mass in the right testis. He underwent an orchiectomy. Pathology showed a pure seminoma that measured 4.1 cm. Staging evaluation did not show any evidence of metastatic disease or retroperitoneal adenopathy. His tumor markers were normal. He discussed the possibility of adjuvant chemotherapy or radiation but elected to proceed with surveillance. His 1st follow-up CT occurred in July 2018. Coincidentally at that time he had an episode of food poisoning. He was found to have a enlarged right pericaval lymph node measuring 22 x 23 x 24 mm as well as a 12 mm soft tissue density in the region. He had a PET-CT done about a week later that showed a slight decrease in the size of his pericaval node. It did have moderate FDG uptake with a SUV of 3.3. His oncologist at that time recommended salvage chemotherapy with either BEP for 3 cycles or EP for 4 cycles. He did seek a 2nd opinion. It was question is that time whether his juan disease really represented a recurrence her was perhaps a reactive process. He had a follow-up CT scan done on the 18 of September that showed a slight decrease in his right pericaval node measured 1.7 x 1.2 cm. Tentatively, the patient is scheduled to have a port placement just after [place] and to start chemotherapy with EP on October 29. He would like to get another follow-up CT scan to be absolutely certain that that node truly is enlarged. He otherwise feels quite well. He denies any new aches or pains. No fevers chills or sweats. Appetite and energy level have been good. No shortness of breath or cough. No change in his weight. He is otherwise without complaint. His past medical history is otherwise only remarkable for environmental allergies. He did have surgery for trauma in childhood. He is not currently on any prescription medications. Family history is notable for a great uncle with testicular cancer. His grandmother had what sounds like head neck cancer. He also has an uncle who had lymphoma. 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 He does not smoke. He does have occasional alcohol use. Home Medications and Allergies Allergies Allergy/AdvReac Type Severity Reaction Status Date / Time No Known Drug Allergies Allergy Verified 10/05/18 17:06 Exam - Constitutional positive no acute distress, positive average body habitus - Routine HEENT Exam Head: Present: normocephalic, atraumatic Eye: Present: EOMI. Absent: conjunctival icterus, scleral injection ENT: Present: mucous membranes moist, oropharynx clear, dentition normal - Routine Neck Exam Present: supple. Absent: lymphadenopathy, thyromegaly - Routine Respiratory Exam Present: Clear to auscultation bilaterally. Absent: rales, wheezes - Routine Cardiovascular Exam Present: RRR, S1, S2. Absent: murmur - Routine Abdominal Exam Present: soft, normoactive bowel sounds. Absent: tenderness, organomegaly, mass - Routine Extremities Exam Absent: cyanosis, clubbing, edema - Routine Back/Spine Exam Back/Spine: Absent: paraspinal tenderness, vertebral tenderness - Routine Skin Exam Present: intact. Absent: cyanosis, erythema, petechiae, rash - Routine Neurological Exam Present: alert, oriented X3 - Routine Psychiatric Exam Present: normal affect, normal thought process Assessment and Plan (1) Seminoma of right testis, stage 1 Problem details: Right-sided pure seminoma Stage IA (pT1b N0 M0 S0) status post right radical orchiectomy on 05/04/2018. A 33-year-old man with a history of stage I pure seminoma now with retroperitoneal adenopathy. Given that the node has not been enlarging over the last month or 2, there is a remote possibility that this is reactive process but I think it is quite unlikely. We will go ahead and repeat a CT scan later this week. If his node has diminished in size further, then I think he might be safely followed with ongoing observation. However, if that notice stable or enlarged then he would need to proceed with some chemotherapy. Today we discussed BEP for 3 cycles versus EP for 4 cycles. Outcomes with either regimen or equivalent. The EP is associated with little bit more short term toxicity particularly in the form of nausea vomiting myelosuppression and fatigue. With the BEP, the primary concern would be pulmonary toxicity from bleomycin. The patient is understandably quite concerned about pulmonary toxicity. 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 This can potentially increase the risk for pulmonary toxicity later on. Other side effects including alopecia, nausea and vomiting, fatigue, change in taste and appetite, risk for neuropathy and ototoxicity as well as risk for nephrotoxicity reviewed. He would prefer the EP regimen and I think that is quite reasonable. We will plan to go ahead with his port placement and begin chemotherapy shortly after [place]. If his CT scan does show decrease in the size of the nodes, we will plan on continued observation. Greater than 40 min was spent with the patient the majority in counseling.
--- NOTE | 2018-10-16 12:03 | ONC.SCHED ---
CAT SCAN-pt checked out and stated [place] called Candy Farias as soon as he left to see if she could help facilitate this. Two hours went by and I still had not received a phone call back from her. I then decided to call radiology to send over an order to help the process along. The person working in radiology informed me that Candy was just in that office and was going to have her provider put in the request. I questioned this as our provider is the one ordering and how does she know what to order. The plowing gardens stated that she was going to have him put in an order for a abd and pelvis. I also let her know he needed a chest CT done as well and i would be happy to fax over our order. She was happy to have that and would get the patient scheduled.
--- NOTE | 2018-10-19 09:11 | ONC.SCHED ---
[id number] Cisplatin adn [id number] Etoposide approved for 25 visits. Authorization scanned in.
--- NOTE | 2018-10-24 09:46 | ONC.PN ---
PN -Subjective Interval history: Diagnosis: Seminoma, T1b N0 Previous treatment: 1. Orchiectomy in April 2018 Interval history: Patient is a 33-year-old man who returns today for follow-up of seminoma. Since his last visit here, he has been feeling generally well and has no new complaints. He has not noted any new aches or pains. His appetite and energy level have been good. No shortness of breath or cough. No fevers chills or sweats. He has not noted any adenopathy. He denies any other changes in his health. He does note that he is scheduled for a port placement later today. He also has an appointment in [place] for sperm collection on Monday. He is ready to start chemotherapy on Monday. He did have a CT scan done on the . It showed some enlargement of his retroperitoneal lymph node. It now measures 23 x 27 mm up from 17 x 12 mm in August. In addition there was soft tissue density in the aortocaval area measuring 13 x 15 mm. He did have a tiny indeterminate pulmonary nodule that was possibly calcified. He had pulmonary function test done that were normal. He otherwise feels quite well. He denies any new aches or pains. No fevers chills or sweats. Appetite and energy level have been good. No shortness of breath or cough. No change in his weight. He is otherwise without complaint. His past medical history is otherwise only remarkable for environmental allergies. He did have surgery for trauma in childhood. He is not currently on any prescription medications. Family history is notable for a great uncle with testicular cancer. His grandmother had what sounds like head neck cancer. He also has an uncle who had lymphoma. 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 He does not smoke. He does have occasional alcohol use. Home Medications and Allergies Home Medications Medication Instructions Recorded Confirmed Type No Known Home Medications 10/19/18 10/19/18 History Allergies Allergy/AdvReac Type Severity Reaction Status Date / Time No Known Drug Allergies Allergy Verified 10/05/18 17:06 Exam - Constitutional positive no acute distress, positive average body habitus Results - Imaging CT scan - abdomen: report reviewed CT scan - chest: report reviewed CT scan - pelvis: report reviewed (Enlarged retroperitoneal lymph node.) Assessment and Plan (1) Seminoma of right testis, stage 1 Problem details: Right-sided pure seminoma Stage IA (pT1b N0 M0 S0) status post right radical orchiectomy on 05/04/2018. A 33-year-old man with a history of stage I pure seminoma now with retroperitoneal adenopathy. His CT scan does show that lymph node is enlarging consistent with recurrent disease. At his last visit, withstand discussed BEP versus EP and the patient prefers to omit bleomycin and I think that is quite reasonable. We will plan on starting EP for 4 cycles beginning next week. He will return to clinic in about 3 weeks or so for follow-up. He is due for port placement later today. He will also continue with the sperm banking. He will need a prescription for antiemetics as well as EMLA.
[2018-10-24 10:12] VITALS: BP 130/76; PULSE 68; RESP 18; TEMP 36.3; O2SAT 98
--- NOTE | 2018-10-25 08:39 | PM.CHEMOCOU ---
Chemotherapy Counseling - History of present illness History of present illness: 33-year-old male with history of stage I pure seminoma who presented to clinic recently with retroperitoneal adenopathy. CT scan demonstrated lymph node enlargement consistent with recurrent disease. These findings were discussed with oncologist Dr Walker plan is to proceed with chemotherapy in the form of EP (cisplatin and etoposide) x 4 cycles. It is noted patient underwent orchiectomy April 2018. Patient presents today for chemotherapy counseling, his GF accompanies him today. He has previously undergone sperm banking. - General New Chemotherapy Patient: Yes Treatment Plan Reviewed: yes - Chemotherapy Counseling Chemotherapy Counseling: Chemotherapy Education: Julian Gandara provided written information on all topics discussed. Written materials printed from [email or web address] and www.[email or web address].[email or web address]. Julian was given an overview of cancer and mechanism of action of cancer cells, that cancer is caused by cells that are dividing rapidly, and out of control. Traditional chemotherapy works by targeting the fast dividing cells and killing them. Chemotherapy affecting healthy cells dividing quickly causes many of the side effects (hair follicles, bone marrow, mucus membranes). Overview of blood cell functions of white cells to fight infection, red cells to carry oxygen, and platelets to stop bleeding was discussed, and that when bone marrow is affected by chemo, there is a decrease in production of these cells. Home care of the patient following chemotherapy was discussed. Body fluids will be contaminated for 48 hours following treatment, and any body fluids handled by caregivers should be handled wearing gloves, surfaces need to be cleaned with soap and water, any soiled linens or clothing need to be washed separately in hot water, toilet lid should be closed when flushing, person cleaning the toilet should wear gloves. How chemotherapy is administered by the RN?s in the clinic, that orders are double checked by pharmacy and checked again by two RN?s prior to administration. Nurses wear protective gear to prevent exposure to them of the chemotherapy agents which can also cause cancer. Cancer center information discussed and written hand out provided listing on-call oncologist available weekends and after hours triage R.N. hours and infusion room guide. New patient binder given to Julian, which includes clinic names, phone numbers, clinic information, calendar, cancer glossary, and list of resources. Handout on advanced directives Common side effects of chemotherapy were discussed with self care tips for prevention of complications. Information also provided in writing. These included: Low blood counts (anemia, thrombocytopenia, neutropenia) Hair loss (alopecia) Nausea and vomiting Decreased appetite Loss of fertility Diarrhea Mouth sores Constipation Peripheral neuropathy Chemo brain/cognitive changes Fatigue Instructions on when to call your healthcare team or on-call physician immediately: Fever of 100.4 or higher, chills, any signs of infection Shortness of breath, wheezing, difficulty breathing, closing of throat, swelling of face, hives (signs of possible allergic reaction) Chest pain, fast heart beat or feelings of a different heart rhythm Swelling of an extremity with or without pain signs of stroke Instructions on when to call your healthcare team within the next 24 hours Nausea that interferes with ability to eat and unrelieved with prescribed medication Diarrhea (4-6 episodes in 24 hour period). Unusual bleeding or bruising Black or tarry stools, or blood in your stools Blood in the urine pain or burning with urination Extreme fatigue (unable to perform self-care activities) Mouth sores or sore areas in your mouth Bad headache Dizziness or lightheadedness Large weight gain over a short period of time General self-care tips while undergoing treatment discussed were as follows. Written materials were provided covering in detail and additional self care tips. Drink at least 2-3 quarts (8-10 glasses) of no-caffeinated beverages daily unless you are instructed otherwise and empty your bladder frequently Report any concerning symptoms to your healthcare team Avoid crowds and sick people, wash your hands frequently Use a soft bristled toothbrush, rinse three times a day with 1 tsp baking soda or 1 tsp salt mixed with warm water Avoid any mouthwashes or oral and skin products containing alcohol or fragrances Use electric razors to avoid cutting yourself Avoid contact sports or activities that could cause head injury or bleeding Avoid sun exposure, wear SPF 15 or higher, wear protective clothing Get plenty of rest, meter your activities Maintain good nutrition Avoid alcoholic beverages Attend your scheduled appointments and lab draws Treatment regimen reviewed and medications were discussed with attention to specific side effects and self care for the pt?s treatment regimen which includes [EP]. Julian was provided with literature regarding [EP] and common side effects. Additionally, Julian was provided with literature regarding the diagnosis of [stage I pure seminoma]. Julian instructed to read literature at home. Keep a list of questions which we are happy to go over at future visits. For any urgent questions please feel free to call any time. - Response to Teaching Response to Teaching: Verbalizes Understanding
--- NOTE | 2018-10-25 08:42 | P.CHEMO_ITS ---
Chemotherapy Counseling - History of present illness History of present illness: 33-year-old male with history of stage I pure seminoma who presented to clinic recently with retroperitoneal adenopathy. CT scan demonstrated lymph node enlargement consistent with recurrent disease. These findings were discussed with oncologist Dr Walker plan is to proceed with chemotherapy in the form of EP (cisplatin and etoposide) x 4 cycles. It is noted patient underwent orchiectomy April 2018. Patient presents today for chemotherapy counseling, his GF accompanies him today. He has previously undergone sperm banking. - General New Chemotherapy Patient: Yes Treatment Plan Reviewed: yes - Chemotherapy Counseling Chemotherapy Counseling: Chemotherapy Education: Julian Gandara provided written information on all topics discussed. Written materials printed from www.[facility] and www.[email or web address].org. Julian was given an overview of cancer and mechanism of action of cancer cells , that cancer is caused by cells that are dividing rapidly, and out of control. Traditional chemotherapy works by targeting the fast dividing cells and killing them. Chemotherapy affecting healthy cells dividing quickly causes many of the side effects (hair follicles, bone marrow, mucus membranes). Overview of blood cell functions of white cells to fight infection, red cells to carry oxygen, and platelets to stop bleeding was discussed, and that when bone marrow is affected by chemo, there is a decrease in production of these cells. Home care of the patient following chemotherapy was discussed. Body fluids will be contaminated for 48 hours following treatment, and any body fluids handled by caregivers should be handled wearing gloves, surfaces need to be cleaned with soap and water, any soiled linens or clothing need to be washed separately in hot water, toilet lid should be closed when flushing, person cleaning the toilet should wear gloves. How chemotherapy is administered by the RN?s in the clinic, that orders are double checked by pharmacy and checked again by two RN?s prior to administration. Nurses wear protective gear to prevent exposure to them of the chemotherapy agents which can also cause cancer. Cancer center information discussed and written hand out provided listing on- call oncologist available weekends and after hours triage R.N. hours and infusion room guide. New patient binder given to Julian, which includes clinic names, phone numbers , clinic information, calendar, cancer glossary, and list of resources. Handout on advanced directives Common side effects of chemotherapy were discussed with self care tips for prevention of complications. Information also provided in writing. These included: Low blood counts (anemia, thrombocytopenia, neutropenia) Hair loss (alopecia) Nausea and vomiting Decreased appetite Loss of fertility Diarrhea Mouth sores Constipation Peripheral neuropathy Chemo brain/cognitive changes Fatigue Instructions on when to call your healthcare team or on-call physician immediately: Fever of 100.4 or higher, chills, any signs of infection Shortness of breath, wheezing, difficulty breathing, closing of throat, swelling of face, hives (signs of possible allergic reaction) Chest pain, fast heart beat or feelings of a different heart rhythm Swelling of an extremity with or without pain signs of stroke Instructions on when to call your healthcare team within the next 24 hours Nausea that interferes with ability to eat and unrelieved with prescribed medication Diarrhea (4-6 episodes in 24 hour period). Unusual bleeding or bruising Black or tarry stools, or blood in your stools Blood in the urine pain or burning with urination Extreme fatigue (unable to perform self-care activities) Mouth sores or sore areas in your mouth Bad headache Dizziness or lightheadedness Large weight gain over a short period of time General self-care tips while undergoing treatment discussed were as follows. Written materials were provided covering in detail and additional self care tips. Drink at least 2-3 quarts (8-10 glasses) of no-caffeinated beverages daily unless you are instructed otherwise and empty your bladder frequently Report any concerning symptoms to your healthcare team Avoid crowds and sick people, wash your hands frequently Use a soft bristled toothbrush, rinse three times a day with 1 tsp baking soda or 1 tsp salt mixed with warm water Avoid any mouthwashes or oral and skin products containing alcohol or fragrances Use electric razors to avoid cutting yourself Avoid contact sports or activities that could cause head injury or bleeding Avoid sun exposure, wear SPF 15 or higher, wear protective clothing Get plenty of rest, meter your activities Maintain good nutrition Avoid alcoholic beverages Attend your scheduled appointments and lab draws Treatment regimen reviewed and medications were discussed with attention to specific side effects and self care for the pt?s treatment regimen which includes [EP]. Julian was provided with literature regarding [EP] and common side effects. Additionally, Julian was provided with literature regarding the diagnosis of [ stage I pure seminoma]. Julian instructed to read literature at home. Keep a list of questions which we are happy to go over at future visits. For any urgent questions please feel free to call any time. - Response to Teaching Response to Teaching: Verbalizes Understanding
[2018-10-29 08:49] LABS: Add Manual Diff / Slide Review NO; Basophils Percent Auto 0.8 % (0-2); Eosinophils Percent Auto 4.1 % (2-4); Hematocrit 43.3 % (41-53); Hemoglobin 15.2 g/dL (13.5-17.5); Lymphocytes Percent Auto 30.4 % (25-40); Mean Corpuscular HGB Conc 35.1 % (30-36); Mean Corpuscular Hemoglobin 32.2 PG (26-34); Mean Corpuscular Volume 91.7 fL (80-100); Monocytes Percent Auto 11.2 % (3-14); Neutrophils Absolute Auto 2800 /uL (1500-7000); Neutrophils Percent Auto 53.5 % (50-75); Platelet Count 187 X10^3/uL (150-400); Red Blood Cell Count 4.73 X10^6/uL (4.5-5.9); Red Cell Distribution Width 13.1 % (11.6-14.8); White Blood Cell Count 5.3 X10^3/uL (4.5-11.0)
[2018-10-29] MEDS: SODIUM CHLORIDE 0.9% 1,000 ML 500 ML IV (09:05)
[2018-10-29 09:06] LABS: Alanine Aminotransferase 30 IU/L (21-72); Albumin 4.4 g/dL (3.5-5.0); Albumin Globulin Ratio 1.7 (1.0-2.8); Alkaline Phosphatase 80 U/L (38-126); Aspartate Aminotransferase 23 IU/L (17-59); BUN Creatinine Ratio 23.8 (6-22); Bilirubin Total 0.7 mg/dL (0.2-1.3); Blood Urea Nitrogen 19 mg/dL (9-20); Calcium 9.6 mg/dL (8.4-10.2); Carbon Dioxide 28 mmol/L (22-32); Chloride 103 mmol/L (98-107); Estimated Glomerular Filt Rate > 60.0 mL/min (>60); Globulin 2.6 g/dL (1.7-4.1); Glucose 80 mg/dL (70-100); HEMOLYSIS < 15 (0-50); Lactate Dehydrogenase 404 U/L (313-618); Potassium 4.6 mmol/L (3.4-5.1); Sodium 139 mmol/L (137-145)
[2018-10-29 09:08] VITALS: BP 124/69; PULSE 59; RESP 17; TEMP 36.7; O2SAT 100
[2018-10-29 09:22] LABS: HCG Quantitative /Beta subunit < 2.39 mIU/mL (-2.40)
[2018-10-29] MEDS: LORazepam 0.5 MG TABLET PO (09:23)
[2018-10-29] MEDS: DEXAMETHASONE 12 MG in SODIUM CHLORIDE 0.9% 50 ML 212 ML IV (09:46)
[2018-10-29] MEDS: FOSAPREPITANT 150 MG in SODIUM CHLORIDE 0.9% 150 ML 300 ML IV (10:07)
[2018-10-29] MEDS: ONDANSETRON 16 MG in SODIUM CHLORIDE 0.9% 50 ML 232 ML IV (10:46)
[2018-10-29] MEDS: MANNITOL IV (11:49)
[2018-10-29] MEDS: MAGNESIUM SULFATE IV (11:49)
[2018-10-29] MEDS: CISPLATIN IV (11:49)
[2018-10-29] MEDS: [UNRECOGNIZED DRUG - OTHER] IV (11:49)
[2018-10-29] MEDS: ETOPOSIDE IV (13:21)
[2018-10-29] MEDS: NORMAL SALINE IV (13:21)
[2018-10-31 10:55] VITALS: BP 120/69; PULSE 56; RESP 16; TEMP 36.6
[2018-10-31] MEDS: SODIUM CHLORIDE 0.9% 1,000 ML 500 ML IV (11:20)
[2018-10-31] MEDS: LORazepam 0.5 MG TABLET PO (11:22)
[2018-10-31] MEDS: DEXAMETHASONE 12 MG in SODIUM CHLORIDE 0.9% 50 ML 212 ML IV (11:22)
[2018-10-31] MEDS: ONDANSETRON 16 MG in SODIUM CHLORIDE 0.9% 50 ML 232 ML IV (12:13)
[2018-10-31] MEDS: [UNRECOGNIZED DRUG - OTHER] IV (13:21)
[2018-10-31] MEDS: MANNITOL IV (13:21)
[2018-10-31] MEDS: CISPLATIN IV (13:21)
[2018-10-31] MEDS: MAGNESIUM SULFATE IV (13:21)
--- NOTE | 2018-10-31 13:49 | ONC.NAV ---
Description: Resources, Financial Assistance Activity: Met with pt's significant other to provide information about transportation through the [employer] [facility], as well as the process of reimbursement through the [employer]. Pt/SO feel that he is doing well on treatment so far, and have no additional needs at this time.
--- NOTE | 2018-10-31 14:40 | P.PNONC_ITS ---
PN -Subjective Interval history: Diagnosis: Seminoma, T1b N0 Previous treatment: 1. Orchiectomy in April 2018 2. Two doses of EP Interval history: Patient is a 33-year-old man who returns today for follow-up of seminoma. He has just started his chemotherapy this week. He is on day 2 cycle 1 today. He has been tolerating it well thus far. He has not had any nausea or vomiting. His appetite has been fair. He did have a little bit of fatigue but it was fairly mild. He denies any shortness of breath cough for chest pain. No fevers or chills. He is otherwise without complaint. Home Medications and Allergies Home Medications Medication Instructions Recorded Confirmed Type lidocaine-prilocaine 1 applictn TOP PRN PRN #30 gram 10/24/18 Rx ondansetron 8 mg PO BID-TID PRN #20 tab 10/24/18 10/24/18 Rx oxycodone-acetaminophen [Percocet] 1 tab PO Q4-6H PRN #14 tab MDD 4 10/24/18 Rx prochlorperazine maleate 10 mg PO Q6-8H PRN #30 tab 10/24/18 10/24/18 Rx [Compazine] Allergies Allergy/AdvReac Type Severity Reaction Status Date / Time No Known Drug Allergies Allergy Verified 10/05/18 17:06 Exam - Constitutional positive no acute distress, positive average body habitus Comments: He is not further examined. Results - Labs Laboratory Last Values WBC 5.3 X10^3/uL (4.5-11.0) 10/29/18 08:18 RBC 4.73 X10^6/uL (4.5-5.9) 10/29/18 08:18 Hgb 15.2 g/dL (13.5-17.5) 10/29/18 08:18 Hct 43.3 % (41-53) 10/29/18 08:18 MCV 91.7 fL (80-100) 10/29/18 08:18 MCH 32.2 PG (26-34) 10/29/18 08:18 MCHC 35.1 % (30-36) 10/29/18 08:18 RDW 13.1 % (11.6-14.8) 10/29/18 08:18 Plt Count 187 X10^3/uL (150-400) 10/29/18 08:18 Neut % (Auto) 53.5 % (50-75) 10/29/18 08:18 Lymph % (Auto) 30.4 % (25-40) 10/29/18 08:18 Ramsey % (Auto) 11.2 % (3-14) 10/29/18 08:18 Eos % (Auto) 4.1 % (2-4) H 10/29/18 08:18 Baso % (Auto) 0.8 % (0-2) 10/29/18 08:18 Neut # (Auto) 2800 /uL (1348-8409) 10/29/18 08:18 Sodium 139 mmol/L (137-145) 10/29/18 08:18 Potassium 4.6 mmol/L (3.4-5.1) 10/29/18 08:18 Chloride 103 mmol/L (98-107) 10/29/18 08:18 Carbon Dioxide 28 mmol/L (22-32) 10/29/18 08:18 BUN 19 mg/dL (9-20) 10/29/18 08:18 Creatinine 0.80 mg/dL (0.66-1.25) 10/29/18 08:18 Estimated GFR > 60.0 mL/min (>60) 10/29/18 08:18 BUN/Creatinine Ratio 23.8 (6-22) H 10/29/18 08:18 Glucose 80 mg/dL (70-100) 10/29/18 08:18 Calcium 9.6 mg/dL (8.4-10.2) 10/29/18 08:18 Total Bilirubin 0.7 mg/dL (0.2-1.3) 10/29/18 08:18 AST 23 IU/L (17-59) 10/29/18 08:18 ALT 30 IU/L (21-72) 10/29/18 08:18 Alkaline Phosphatase 80 U/L (38-126) 10/29/18 08:18 Lactate Dehydrogenase 404 U/L (313-618) 10/29/18 08:18 Total Protein 7.0 g/dL (6.3-8.2) 10/29/18 08:18 Albumin 4.4 g/dL (3.5-5.0) 10/29/18 08:18 Globulin 2.6 g/dL (1.7-4.1) 10/29/18 08:18 Albumin/Globulin Ratio 1.7 (1.0-2.8) 10/29/18 08:18 HCG, Quant < 2.39 mIU/mL (-2.40) 10/29/18 08:18 Assessment and Plan (1) Seminoma of right testis, stage 1 Problem details: Right-sided pure seminoma Stage IA (pT1b N0 M0 S0) status post right radical orchiectomy on 05/04/2018. A 33-year-old man with a history of stage I pure seminoma now with retroperitoneal adenopathy. He also has a tiny indeterminate pulmonary nodule. He will continue with his chemotherapy and return to clinic in about 3 weeks for follow-up. I would anticipate a follow-up CT scan about 6-8 weeks after the completion of his treatment.
[2018-10-31] MEDS: NORMAL SALINE IV (14:50)
[2018-10-31] MEDS: ETOPOSIDE IV (14:50)
--- NOTE | 2018-10-31 16:38 | PC.NURSE ---
PATIENT REQUESTED TO BE LEFT ACCESSED FOR TREATMENT TOMORROW, TRANSPARENT DRESSING APPLIED TO PORT, CAP TO LINE FOLLOWED BY FLUSH WITH NS AND HEPARIN.
[2018-11-01] MEDS: SODIUM CHLORIDE 0.9% 1,000 ML 500 ML IV (08:39)
[2018-11-01] MEDS: DEXAMETHASONE 12 MG in SODIUM CHLORIDE 0.9% 50 ML 212 ML IV (09:09)
[2018-11-01] MEDS: LORazepam 0.5 MG TABLET PO (09:09)
[2018-11-01 09:13] VITALS: BP 122/76; PULSE 67; RESP 16; TEMP 36.6; O2SAT 99
[2018-11-01] MEDS: ONDANSETRON 16 MG in SODIUM CHLORIDE 0.9% 50 ML 232 ML IV (09:35)
[2018-11-01] MEDS: [UNRECOGNIZED DRUG - OTHER] IV (11:08)
[2018-11-01] MEDS: MAGNESIUM SULFATE IV (11:08)
[2018-11-01] MEDS: MANNITOL IV (11:08)
[2018-11-01] MEDS: CISPLATIN IV (11:08)
[2018-11-01 12:22] LABS: Alpha Fetoprotein 5.7 ng/mL (< 6.1)
[2018-11-01] MEDS: ETOPOSIDE IV (12:31)
[2018-11-01] MEDS: NORMAL SALINE IV (12:31)
[2018-11-02] MEDS: SODIUM CHLORIDE 0.9% 1,000 ML 500 ML IV (08:59)
[2018-11-02] MEDS: DEXAMETHASONE 12 MG in SODIUM CHLORIDE 0.9% 50 ML 212 ML IV (08:59)
[2018-11-02] MEDS: ONDANSETRON 16 MG in SODIUM CHLORIDE 0.9% 50 ML 232 ML IV (09:26)
[2018-11-02] MEDS: LORazepam 0.5 MG TABLET PO (09:29)
[2018-11-02 10:01] VITALS: BP 112/69; PULSE 55; RESP 16; TEMP 36.6; O2SAT 96
[2018-11-02] MEDS: CISPLATIN IV (10:42)
[2018-11-02] MEDS: [UNRECOGNIZED DRUG - OTHER] IV (10:42)
[2018-11-02] MEDS: MANNITOL IV (10:42)
[2018-11-02] MEDS: MAGNESIUM SULFATE IV (10:42)
[2018-11-02] MEDS: ETOPOSIDE IV (12:00)
[2018-11-02] MEDS: NORMAL SALINE IV (12:00)
[2018-11-05 09:09] LABS: Add Manual Diff / Slide Review NO; Basophils Percent Auto 0.2 % (0-2); Eosinophils Percent Auto 1.9 % (2-4); Hematocrit 43.4 % (41-53); Hemoglobin 15.2 g/dL (13.5-17.5); Lymphocytes Percent Auto 27.9 % (25-40); Mean Corpuscular Hemoglobin 32.1 PG (26-34); Mean Corpuscular Volume 91.7 fL (80-100); Monocytes Percent Auto 1.4 % (3-14); Neutrophils Absolute Auto 3000 /uL (1500-7000); Neutrophils Percent Auto 68.6 % (50-75); Platelet Count 224 X10^3/uL (150-400); Red Blood Cell Count 4.73 X10^6/uL (4.5-5.9); Red Cell Distribution Width 12.6 % (11.6-14.8); White Blood Cell Count 4.4 X10^3/uL (4.5-11.0)
[2018-11-05 09:20] LABS: Alanine Aminotransferase 96 IU/L (21-72); Albumin 4.5 g/dL (3.5-5.0); Albumin Globulin Ratio 1.7 (1.0-2.8); Alkaline Phosphatase 60 U/L (38-126); Aspartate Aminotransferase 35 IU/L (17-59); BUN Creatinine Ratio 22.9 (6-22); Bilirubin Total 1.3 mg/dL (0.2-1.3); Blood Urea Nitrogen 16 mg/dL (9-20); Calcium 9.5 mg/dL (8.4-10.2); Carbon Dioxide 27 mmol/L (22-32); Chloride 102 mmol/L (98-107); Estimated Glomerular Filt Rate > 60.0 mL/min (>60); Globulin 2.6 g/dL (1.7-4.1); Glucose 126 mg/dL (70-100); HEMOLYSIS < 15 (0-50); Potassium 3.7 mmol/L (3.4-5.1); Sodium 140 mmol/L (137-145); Total Protein 7.1 g/dL (6.3-8.2)
[2018-11-05 09:34] VITALS: BP 115/68; PULSE 71; RESP 16; TEMP 36.6; O2SAT 100
[2018-11-05] MEDS: SODIUM CHLORIDE 0.9% 1,000 ML 500 ML IV (09:44)
[2018-11-05] MEDS: LORazepam 0.5 MG TABLET PO (09:49)
[2018-11-05] MEDS: DEXAMETHASONE 12 MG in SODIUM CHLORIDE 0.9% 50 ML 212 ML IV (10:01)
[2018-11-05] MEDS: ONDANSETRON 16 MG in SODIUM CHLORIDE 0.9% 50 ML 232 ML IV (10:22)
[2018-11-05] MEDS: MAGNESIUM SULFATE IV (11:20)
[2018-11-05] MEDS: [UNRECOGNIZED DRUG - OTHER] IV (11:20)
[2018-11-05] MEDS: CISPLATIN IV (11:20)
[2018-11-05] MEDS: MANNITOL IV (11:20)
[2018-11-05] MEDS: NORMAL SALINE IV (12:53)
[2018-11-05] MEDS: ETOPOSIDE IV (12:53)
[2018-11-12 14:00] LABS: Add Manual Diff / Slide Review NO; Basophils Absolute Auto 0 /uL (0-100); Basophils Percent Auto 0.9 % (0-2); Eosinophils Absolute Auto 0 /uL (0-450); Eosinophils Percent Auto 0.5 % (2-4); Hematocrit 37.1 % (41-53); Hemoglobin 12.9 g/dL (13.5-17.5); Lymphocytes Absolute Auto 1000 /uL (1100-4500); Lymphocytes Percent Auto 32.2 % (25-40); Mean Corpuscular HGB Conc 34.8 % (30-36); Mean Corpuscular Hemoglobin 31.9 PG (26-34); Mean Corpuscular Volume 91.6 fL (80-100); Monocytes Absolute Auto 300 /uL (0-900); Monocytes Percent Auto 8.2 % (3-14); Neutrophils Absolute Auto 1800 /uL (1500-7000); Neutrophils Percent Auto 58.2 % (50-75); Platelet Count 149 X10^3/uL (150-400); Red Blood Cell Count 4.05 X10^6/uL (4.5-5.9); Red Cell Distribution Width 12.6 % (11.6-14.8); White Blood Cell Count 3.2 X10^3/uL (4.5-11.0)
[2018-11-12 14:11] LABS: Alanine Aminotransferase 51 IU/L (21-72); Albumin 4.1 g/dL (3.5-5.0); Albumin Globulin Ratio 1.9 (1.0-2.8); Alkaline Phosphatase 64 U/L (38-126); Aspartate Aminotransferase 22 IU/L (17-59); BUN Creatinine Ratio 18.8 (6-22); Bilirubin Total 0.3 mg/dL (0.2-1.3); Blood Urea Nitrogen 15 mg/dL (9-20); Calcium 8.5 mg/dL (8.4-10.2); Carbon Dioxide 26 mmol/L (22-32); Chloride 106 mmol/L (98-107); Estimated Glomerular Filt Rate > 60.0 mL/min (>60); Globulin 2.2 g/dL (1.7-4.1); Glucose 96 mg/dL (70-100); HEMOLYSIS < 15 (0-50); Potassium 3.9 mmol/L (3.4-5.1); Sodium 142 mmol/L (137-145); Total Protein 6.3 g/dL (6.3-8.2)
[2018-11-19 08:36] LABS: Add Manual Diff / Slide Review NO; Basophils Absolute Auto 0 /uL (0-100); Basophils Percent Auto 0.5 % (0-2); Eosinophils Absolute Auto 0 /uL (0-450); Eosinophils Percent Auto 0.8 % (2-4); Hematocrit 39.9 % (41-53); Hemoglobin 13.8 g/dL (13.5-17.5); Lymphocytes Absolute Auto 1200 /uL (1100-4500); Lymphocytes Percent Auto 44.1 % (25-40); Mean Corpuscular HGB Conc 34.5 % (30-36); Mean Corpuscular Volume 92.6 fL (80-100); Monocytes Absolute Auto 600 /uL (0-900); Monocytes Percent Auto 21.4 % (3-14); Neutrophils Absolute Auto 900 /uL (1500-7000); Neutrophils Percent Auto 33.2 % (50-75); Platelet Count 142 X10^3/uL (150-400); Red Blood Cell Count 4.31 X10^6/uL (4.5-5.9); Red Cell Distribution Width 13.3 % (11.6-14.8); White Blood Cell Count 2.7 X10^3/uL (4.5-11.0)
[2018-11-19 08:47] VITALS: BP 121/77; PULSE 60; RESP 16; TEMP 36.8; O2SAT 99
[2018-11-19 08:47] LABS: Alanine Aminotransferase 51 IU/L (21-72); Albumin 4.5 g/dL (3.5-5.0); Albumin Globulin Ratio 1.7 (1.0-2.8); Alkaline Phosphatase 65 U/L (38-126); Aspartate Aminotransferase 37 IU/L (17-59); BUN Creatinine Ratio 22.9 (6-22); Bilirubin Total 0.9 mg/dL (0.2-1.3); Blood Urea Nitrogen 16 mg/dL (9-20); Calcium 8.9 mg/dL (8.4-10.2); Carbon Dioxide 25 mmol/L (22-32); Chloride 107 mmol/L (98-107); Estimated Glomerular Filt Rate > 60.0 mL/min (>60); Globulin 2.6 g/dL (1.7-4.1); Glucose 81 mg/dL (70-100); Lactate Dehydrogenase 585 U/L (313-618); Potassium 4.7 mmol/L (3.4-5.1); Sodium 138 mmol/L (137-145); Total Protein 7.1 g/dL (6.3-8.2)
[2018-11-19 08:48] LABS: HEMOLYSIS 98 (0-50)
[2018-11-19 09:04] LABS: HCG Quantitative /Beta subunit < 2.39 mIU/mL (-2.40)
[2018-11-19] MEDS: DEXAMETHASONE 12 MG in SODIUM CHLORIDE 0.9% 50 ML 212 ML IV (09:54)
[2018-11-19] MEDS: SODIUM CHLORIDE 0.9% 1,000 ML 500 ML IV (09:54)
[2018-11-19] MEDS: LORazepam 0.5 MG TABLET PO (09:59)
[2018-11-19] MEDS: FOSAPREPITANT 150 MG in SODIUM CHLORIDE 0.9% 150 ML 300 ML IV (10:15)
[2018-11-19] MEDS: ONDANSETRON 16 MG in SODIUM CHLORIDE 0.9% 50 ML 232 ML IV (10:55)
[2018-11-19] MEDS: CISPLATIN IV (11:57)
[2018-11-19] MEDS: [UNRECOGNIZED DRUG - OTHER] IV (11:57)
[2018-11-19] MEDS: MAGNESIUM SULFATE IV (11:57)
[2018-11-19] MEDS: MANNITOL IV (11:57)
[2018-11-19] MEDS: ETOPOSIDE IV (13:23)
[2018-11-19] MEDS: NORMAL SALINE IV (13:23)
[2018-11-20 09:02] VITALS: BP 128/78; PULSE 80; RESP 18; TEMP 36.8; O2SAT 99
--- NOTE | 2018-11-20 09:26 | P.PNONC_ITS ---
PN -Subjective Interval history: Diagnosis: Seminoma, T1b N0 Previous treatment: 1. Orchiectomy in April 2018 2. One cycle of EP Interval history: Patient is a 33-year-old man who returns today for follow-up of seminoma. He underwent orchiectomy initially in April 2018. Shortly thereafter he was found to have an enlarged retroperitoneal lymph node. On close follow-up initially shrank a little bit but then continued to grow. Because of that, he started on chemotherapy with etoposide and cisplatin. He has completed 1 of 4 planned courses. He notes that he has had some fatigue with his treatment. It was worst on the last few days of treatment but then gradually improved. He has not had any nausea or vomiting. His appetite has been good. No shortness of breath or cough. He has had some constipation. He has been using some smooth move tea which he feels is helpful. He has also noted some brief ringing in his ears but that seems to have resolved recently. There has been no neuropathy. No fevers chills or sweats. He denies any other changes in his health. His only medications include Zofran and Compazine. - Patient Self-Reported Symptoms SR ears, nose, mouth, throat issues: Ears ringing SR Skin issues: Hair loss or scalp prob SR Gastrointestinal issues: Change in bowel pattern, Constipation Home Medications and Allergies Home Medications Medication Instructions Recorded Confirmed Type lidocaine-prilocaine 1 applictn TOP PRN PRN #30 gram 10/24/18 Rx ondansetron 8 mg PO BID-TID PRN #20 tab 10/24/18 10/24/18 Rx oxycodone-acetaminophen [Percocet] 1 tab PO Q4-6H PRN #14 tab MDD 4 10/24/18 Rx prochlorperazine maleate 10 mg PO Q6-8H PRN #30 tab 10/24/18 10/24/18 Rx [Compazine] ibuprofen [Advil] 400 mg PO QID PRN 11/20/18 11/20/18 History Allergies Allergy/AdvReac Type Severity Reaction Status Date / Time No Known Drug Allergies Allergy Verified 10/05/18 17:06 Exam - Constitutional positive no acute distress, positive average body habitus - Routine HEENT Exam Head: Present: normocephalic, atraumatic Eye: Present: EOMI, PERRL. Absent: conjunctival icterus, scleral injection ENT: Present: mucous membranes moist, oropharynx clear - Routine Neck Exam Present: supple. Absent: lymphadenopathy, thyromegaly - Routine Respiratory Exam Present: Clear to auscultation bilaterally. Absent: rales, wheezes - Routine Cardiovascular Exam Present: RRR, S1, S2. Absent: murmur - Routine Abdominal Exam Present: soft, normoactive bowel sounds. Absent: tenderness - Routine Extremities Exam Absent: edema - Routine Skin Exam Present: intact. Absent: petechiae, wounds - Routine Neurological Exam Present: alert, oriented X3 - Routine Psychiatric Exam Present: normal affect, normal thought process Results - Labs Laboratory Last Values WBC 2.7 X10^3/uL (4.5-11.0) L 11/19/18 08:23 RBC 4.31 X10^6/uL (4.5-5.9) L 11/19/18 08:23 Hgb 13.8 g/dL (13.5-17.5) 11/19/18 08:23 Hct 39.9 % (41-53) L 11/19/18 08:23 MCV 92.6 fL (80-100) 11/19/18 08:23 MCH 32.0 PG (26-34) 11/19/18 08:23 MCHC 34.5 % (30-36) 11/19/18 08:23 RDW 13.3 % (11.6-14.8) 11/19/18 08:23 Plt Count 142 X10^3/uL (150-400) L 11/19/18 08:23 Neut % (Auto) 33.2 % (50-75) L 11/19/18 08:23 Lymph % (Auto) 44.1 % (25-40) H 11/19/18 08:23 [place] % (Auto) 21.4 % (3-14) H 11/19/18 08:23 Eos % (Auto) 0.8 % (2-4) L 11/19/18 08:23 Baso % (Auto) 0.5 % (0-2) 11/19/18 08:23 Neut # (Auto) 900 /uL (1023-5440) L 11/19/18 08:23 Lymph # (Auto) 1200 /uL (4337-1776) 11/19/18 08:23 [place] # (Auto) 600 /uL (0-900) 11/19/18 08:23 Eos # (Auto) 0 /uL (0-450) 11/19/18 08:23 Baso # (Auto) 0 /uL (0-100) 11/19/18 08:23 Sodium 138 mmol/L (137-145) 11/19/18 08:23 Potassium 4.7 mmol/L (3.4-5.1) 11/19/18 08:23 Chloride 107 mmol/L (98-107) 11/19/18 08:23 Carbon Dioxide 25 mmol/L (22-32) 11/19/18 08:23 BUN 16 mg/dL (9-20) 11/19/18 08:23 Creatinine 0.70 mg/dL (0.66-1.25) 11/19/18 08:23 Estimated GFR > 60.0 mL/min (>60) 11/19/18 08:23 BUN/Creatinine Ratio 22.9 (6-22) H 11/19/18 08:23 Glucose 81 mg/dL (70-100) 11/19/18 08:23 Calcium 8.9 mg/dL (8.4-10.2) 11/19/18 08:23 Total Bilirubin 0.9 mg/dL (0.2-1.3) 11/19/18 08:23 AST 37 IU/L (17-59) 11/19/18 08:23 ALT 51 IU/L (21-72) 11/19/18 08:23 Alkaline Phosphatase 65 U/L (38-126) 11/19/18 08:23 Lactate Dehydrogenase 585 U/L (313-618) 11/19/18 08:23 Total Protein 7.1 g/dL (6.3-8.2) 11/19/18 08:23 Albumin 4.5 g/dL (3.5-5.0) 11/19/18 08:23 Globulin 2.6 g/dL (1.7-4.1) 11/19/18 08:23 Albumin/Globulin Ratio 1.7 (1.0-2.8) 11/19/18 08:23 Alpha Fetoprotein 5.7 ng/mL (< 6.1) 10/29/18 08:18 HCG, Quant < 2.39 mIU/mL (-2.40) 11/19/18 08:23 Assessment and Plan (1) Seminoma of right testis, stage 1 Problem details: Right-sided pure seminoma Stage IA (pT1b N0 M0 S0) status post right radical orchiectomy on 05/04/2018. A 33-year-old man with a history of stage I pure seminoma now with retroperitoneal adenopathy. He will proceed with his 2nd cycle of chemotherapy. He will return to clinic in about 3 weeks for follow-up. He has been tolerating it with the expected toxicities. His white count was low after the 1st cycle. It is likely that he will need Neupogen in order to stay on schedule. He will continue with weekly CBCs. If his ANC is less than a 1000 in 2 weeks, we will plan on treating him with Neupogen for 3 days. I did encourage him to try some stool softeners or fiber supplements to help with this constipation. He will return to clinic in about 3 weeks for follow-up with a restaging CT.
[2018-11-20] MEDS: SODIUM CHLORIDE 0.9% 1,000 ML 500 ML IV (09:29)
[2018-11-20] MEDS: LORazepam 0.5 MG TABLET PO (09:33)
[2018-11-20] MEDS: DEXAMETHASONE 12 MG in SODIUM CHLORIDE 0.9% 50 ML 212 ML IV (09:56)
[2018-11-20] MEDS: ONDANSETRON 16 MG in SODIUM CHLORIDE 0.9% 50 ML 232 ML IV (10:19)
[2018-11-20] MEDS: ACETAMINOPHEN 325 MG TABLET 650 MG PO (11:07)
[2018-11-20] MEDS: MANNITOL IV (11:08)
[2018-11-20] MEDS: [UNRECOGNIZED DRUG - OTHER] IV (11:08)
[2018-11-20] MEDS: MAGNESIUM SULFATE IV (11:08)
[2018-11-20] MEDS: CISPLATIN IV (11:08)
[2018-11-20] MEDS: ETOPOSIDE IV (12:50)
[2018-11-20] MEDS: NORMAL SALINE IV (12:50)
[2018-11-20 15:48] LABS: Alpha Fetoprotein 5.3 ng/mL (< 6.1)
[2018-11-21] MEDS: LORazepam 0.5 MG TABLET PO (08:51)
[2018-11-21] MEDS: SODIUM CHLORIDE 0.9% 1,000 ML 500 ML IV (08:52)
[2018-11-21 09:00] VITALS: BP 124/76; PULSE 72; RESP 16; TEMP 36.6; O2SAT 99
[2018-11-21] MEDS: DEXAMETHASONE 12 MG in SODIUM CHLORIDE 0.9% 50 ML 212 ML IV (09:27)
[2018-11-21] MEDS: ONDANSETRON 16 MG in SODIUM CHLORIDE 0.9% 50 ML 232 ML IV (09:44)
[2018-11-21] MEDS: MANNITOL IV (10:26)
[2018-11-21] MEDS: MAGNESIUM SULFATE IV (10:26)
[2018-11-21] MEDS: CISPLATIN IV (10:26)
[2018-11-21] MEDS: [UNRECOGNIZED DRUG - OTHER] IV (10:26)
[2018-11-21] MEDS: NORMAL SALINE IV (12:00)
[2018-11-21] MEDS: ETOPOSIDE IV (12:00)
[2018-11-22 08:59] VITALS: BP 115/77; PULSE 60; RESP 16; TEMP 36.7; O2SAT 99
[2018-11-22] MEDS: DEXAMETHASONE 12 MG in SODIUM CHLORIDE 0.9% 50 ML 212 ML IV (09:09)
[2018-11-22] MEDS: SODIUM CHLORIDE 0.9% 1,000 ML 500 ML IV (09:15)
[2018-11-22] MEDS: LORazepam 0.5 MG TABLET PO (09:31)
[2018-11-22] MEDS: ONDANSETRON 16 MG in SODIUM CHLORIDE 0.9% 50 ML 232 ML IV (09:31)
[2018-11-22] MEDS: CISPLATIN IV (10:31)
[2018-11-22] MEDS: [UNRECOGNIZED DRUG - OTHER] IV (10:31)
[2018-11-22] MEDS: MANNITOL IV (10:31)
[2018-11-22] MEDS: MAGNESIUM SULFATE IV (10:31)
[2018-11-22] MEDS: ETOPOSIDE IV (11:52)
[2018-11-22] MEDS: NORMAL SALINE IV (11:52)
--- NOTE | 2018-11-22 15:46 | PC.NURSE ---
Patient here for 4th day of cycle. He stated feeling slightly nauseas with the feeling being more up in his chest and a funny taste in his mouth. He stated having eaten only one half muffin. Prechemo antiemetics administered per order. Patient slept through chemotherapy, refused lunch. At end he reported nauseau feeling the same. Heart rate regular, lung sounds clear, no SOB, 02 sats wnl. This nurse encouraged patient to eat after which (one half muffin) he stated feeling much better and departed to drive home.
[2018-11-23] MEDS: LORazepam 0.5 MG TABLET PO (08:56)
[2018-11-23] MEDS: SODIUM CHLORIDE 0.9% 1,000 ML 500 ML IV (08:59)
[2018-11-23 09:08] VITALS: BP 114/71; PULSE 55; RESP 20; TEMP 36.5; O2SAT 99
[2018-11-23] MEDS: DEXAMETHASONE 12 MG in SODIUM CHLORIDE 0.9% 50 ML 212 ML IV (09:12)
[2018-11-23] MEDS: ONDANSETRON 16 MG in SODIUM CHLORIDE 0.9% 50 ML 232 ML IV (09:36)
[2018-11-23 10:30] VITALS: PULSE 80
[2018-11-23] MEDS: CISPLATIN IV (10:34)
[2018-11-23] MEDS: MANNITOL IV (10:34)
[2018-11-23] MEDS: MAGNESIUM SULFATE IV (10:34)
[2018-11-23] MEDS: [UNRECOGNIZED DRUG - OTHER] IV (10:34)
[2018-11-23] MEDS: ETOPOSIDE IV (11:56)
[2018-11-23] MEDS: NORMAL SALINE IV (11:56)
--- NOTE | 2018-11-23 15:31 | PC.NURSE ---
PATIENT HERE FOR CYCLE 2 DAY 5. HE IS FEELING VERY FATIGUED AND WELL DID NOT SLEEP WELL LAST NIGHT STATING HE WAS NOT SURE WHY HE KEPT WAKING UP. CONTINUES TO HAVE SOME NAUSEA, NO VOMITING. IS EATING LESS THAN USUAL, EATING PANCAKES THIS AM. LAST BOWEL MOVEMENT WED. AM. HYPOACTIVE BOWEL SOUNDS. HE FINDS ZOFRAN CAUSES HIM CONSTIPATION. PATIENT WAS ENCOURAGED TRY TO TAKE THE COMPAZINE PRESCRIPTION REGULARLY, EAT SMALL FREQUENT MEALS, INCLUDE FRUITS AND VEGETABLES AND ADD MIRALAX TO HIS BOWEL PROGRAM (PATIENT USING 300 MG DOCUSATE SODIUM QD)
[2018-11-26 09:27] LABS: Add Manual Diff / Slide Review NO; Basophils Absolute Auto 0 /uL (0-100); Basophils Percent Auto 0.4 % (0-2); Eosinophils Absolute Auto 0 /uL (0-450); Eosinophils Percent Auto 0.5 % (2-4); Hematocrit 41.2 % (41-53); Hemoglobin 14.5 g/dL (13.5-17.5); Lymphocytes Absolute Auto 1500 /uL (1100-4500); Lymphocytes Percent Auto 51.3 % (25-40); Mean Corpuscular HGB Conc 35.1 % (30-36); Mean Corpuscular Hemoglobin 31.9 PG (26-34); Mean Corpuscular Volume 90.8 fL (80-100); Monocytes Absolute Auto 100 /uL (0-900); Monocytes Percent Auto 2.4 % (3-14); Neutrophils Absolute Auto 1300 /uL (1500-7000); Neutrophils Percent Auto 45.4 % (50-75); Platelet Count 150 X10^3/uL (150-400); Red Blood Cell Count 4.54 X10^6/uL (4.5-5.9); Red Cell Distribution Width 13.2 % (11.6-14.8); White Blood Cell Count 2.9 X10^3/uL (4.5-11.0)
--- NOTE | 2018-11-27 08:38 | ONC.SCHED ---
Filgrastim-aafi/Nivestym approved #[id number] 11/26/18-02/24/19 12 doses
[2018-12-03 09:30] LABS: Hemoglobin 12.4 g/dL (13.5-17.5); Mean Corpuscular HGB Conc 35.5 % (30-36); Mean Corpuscular Hemoglobin 32.4 PG (26-34); Mean Corpuscular Volume 91.2 fL (80-100); Platelet Count 105 X10^3/uL (150-400); Red Blood Cell Count 3.84 X10^6/uL (4.5-5.9); Red Cell Distribution Width 13.7 % (11.6-14.8)
[2018-12-03 09:33] LABS: Add Manual Diff / Slide Review YES; White Blood Cell Count 1.6 X10^3/uL (4.5-11.0)
--- NOTE | 2018-12-03 09:33 | PC.NURSE ---
Received critical lab result WBC 1.6, triage aware.
[2018-12-03 09:52] LABS: Neutrophils Absolute Manual 352 /uL (3000-5900); Total Cells Counted 50
[2018-12-03 09:57] LABS: Anisocytosis 1+
[2018-12-03 10:44] VITALS: BP 139/78; PULSE 71; RESP 16; TEMP 36.5
[2018-12-03] MEDS: FILGRASTIM-AAFI 300 MCG/0.5 ML SYRINGE SUBCUT (10:44)
[2018-12-04 14:22] VITALS: BP 123/71; PULSE 71; RESP 16; TEMP 36.4; O2SAT 100
--- NOTE | 2018-12-04 14:35 | ONC.PN ---
PN -Subjective Interval history: Diagnosis: Seminoma, T1b N0 Previous treatment: 1. Orchiectomy in April 2018 2. 2 cycles of EP Interval history: Patient is a 33-year-old man who returns today for follow-up of seminoma. He underwent orchiectomy initially in April 2018. Shortly thereafter he was found to have an enlarged retroperitoneal lymph node. On close follow-up initially shrank a little bit but then continued to grow. Because of that, he started on chemotherapy with etoposide and cisplatin. He has completed 2 of 4 planned courses. He has been tolerating treatment fairly well. He has had some nausea but no vomiting. He has noted some fatigue although has been relatively mild. He has had some intermittent tinnitus. It lasted about a week with his most recent cycle but that has since resolved. No fevers or chills. No shortness of breath or cough. He is not having any pain. A he has not noted any neuropathy. He denies any other changes in his health. His only medications include Zofran and Compazine. - Patient Self-Reported Symptoms SR ears, nose, mouth, throat issues: Ears ringing SR Skin issues: Hair loss or scalp prob SR Gastrointestinal issues: Change in bowel pattern, Constipation Home Medications and Allergies Home Medications Medication Instructions Recorded Confirmed Type lidocaine-prilocaine 1 applictn TOP PRN PRN #30 gram 10/24/18 Rx ondansetron 8 mg PO BID-TID PRN #20 tab 10/24/18 10/24/18 Rx oxycodone-acetaminophen [Percocet] 1 tab PO Q4-6H PRN #14 tab MDD 4 10/24/18 Rx prochlorperazine maleate 10 mg PO Q6-8H PRN #30 tab 10/24/18 10/24/18 Rx [Compazine] ibuprofen [Advil] 400 mg PO QID PRN 11/20/18 11/20/18 History levofloxacin 500 mg PO DAILY #14 tab 12/03/18 Rx Allergies Allergy/AdvReac Type Severity Reaction Status Date / Time No Known Drug Allergies Allergy Verified 10/05/18 17:06 Exam - Constitutional positive no acute distress, positive average body habitus - Routine HEENT Exam Head: Present: normocephalic, atraumatic Eye: Present: EOMI, PERRL. Absent: conjunctival icterus ENT: Present: mucous membranes moist, oropharynx clear - Routine Neck Exam Present: supple. Absent: lymphadenopathy, thyromegaly - Routine Respiratory Exam Present: Clear to auscultation bilaterally. Absent: rales, wheezes - Routine Cardiovascular Exam Present: RRR, S1, S2. Absent: murmur - Routine Abdominal Exam Present: soft, normoactive bowel sounds. Absent: tenderness, organomegaly, mass - Routine Extremities Exam Absent: cyanosis, clubbing, edema - Routine Skin Exam Present: intact. Absent: petechiae, rash - Routine Neurological Exam Present: alert, oriented X3 - Routine Psychiatric Exam Present: normal affect, normal thought process Results - Labs Laboratory Last Values WBC 1.6 X10^3/uL (4.5-11.0) L* 12/03/18 08:50 RBC 3.84 X10^6/uL (4.5-5.9) L 12/03/18 08:50 Hgb 12.4 g/dL (13.5-17.5) L 12/03/18 08:50 Hct 35.0 % (41-53) L 12/03/18 08:50 MCV 91.2 fL (80-100) 12/03/18 08:50 MCH 32.4 PG (26-34) 12/03/18 08:50 MCHC 35.5 % (30-36) 12/03/18 08:50 RDW 13.7 % (11.6-14.8) 12/03/18 08:50 Plt Count 105 X10^3/uL (150-400) L 12/03/18 08:50 Neut % (Auto) Not Reportable 12/03/18 08:50 Lymph % (Auto) Not Reportable 12/03/18 08:50 [place] % (Auto) Not Reportable 12/03/18 08:50 Eos % (Auto) Not Reportable 12/03/18 08:50 Baso % (Auto) Not Reportable 12/03/18 08:50 Neut # (Auto) 1300 /uL (0240-1484) L 11/26/18 08:58 Lymph # (Auto) Not Reportable 12/03/18 08:50 [place] # (Auto) Not Reportable 12/03/18 08:50 Eos # (Auto) 0 /uL (0-450) 11/26/18 08:58 Baso # (Auto) Not Reportable 12/03/18 08:50 Total Counted 50 12/03/18 08:50 Seg Neutrophils % 22.0 % (38-70) L 12/03/18 08:50 Lymphocytes % (Manual) 60.0 % (25-45) H 12/03/18 08:50 Atypical Lymphs % 8.0 % (-0) H 12/03/18 08:50 Monocytes % (Manual) 10.0 % (2-11) 12/03/18 08:50 Neutrophils # (Manual) 352 /uL (2436-8023) L 12/03/18 08:50 RBC Morphology See below 12/03/18 08:50 Anisocytosis 1+ H 12/03/18 08:50 Sodium 138 mmol/L (137-145) 11/19/18 08:23 Potassium 4.7 mmol/L (3.4-5.1) 11/19/18 08:23 Chloride 107 mmol/L (98-107) 11/19/18 08:23 Carbon Dioxide 25 mmol/L (22-32) 11/19/18 08:23 BUN 16 mg/dL (9-20) 11/19/18 08:23 Creatinine 0.70 mg/dL (0.66-1.25) 11/19/18 08:23 Estimated GFR > 60.0 mL/min (>60) 11/19/18 08:23 BUN/Creatinine Ratio 22.9 (6-22) H 11/19/18 08:23 Glucose 81 mg/dL (70-100) 11/19/18 08:23 Calcium 8.9 mg/dL (8.4-10.2) 11/19/18 08:23 Total Bilirubin 0.9 mg/dL (0.2-1.3) 11/19/18 08:23 AST 37 IU/L (17-59) 11/19/18 08:23 ALT 51 IU/L (21-72) 11/19/18 08:23 Alkaline Phosphatase 65 U/L (38-126) 11/19/18 08:23 Lactate Dehydrogenase 585 U/L (313-618) 11/19/18 08:23 Total Protein 7.1 g/dL (6.3-8.2) 11/19/18 08:23 Albumin 4.5 g/dL (3.5-5.0) 11/19/18 08:23 Globulin 2.6 g/dL (1.7-4.1) 11/19/18 08:23 Albumin/Globulin Ratio 1.7 (1.0-2.8) 11/19/18 08:23 Alpha Fetoprotein 5.3 ng/mL (< 6.1) 11/19/18 08:23 HCG, Quant < 2.39 mIU/mL (-2.40) 11/19/18 08:23 Assessment and Plan (1) Seminoma of right testis, stage 1 Problem details: Right-sided pure seminoma Stage IA (pT1b N0 M0 S0) status post right radical orchiectomy on 05/04/2018. A 33-year-old man with a history of stage I pure seminoma now with retroperitoneal adenopathy. His restaging CT scan shows no evidence of residual adenopathy. His previous pulmonary nodule was not seen. His tumor markers have been normal. He currently has no evidence of disease. He will proceed with his 3rd cycle of chemotherapy next week. He will return to clinic in about 3 weeks for follow-up. He will be due for his 4th and final cycle shortly after that. After he completes his chemotherapy I would expect a new baseline CT. Follow-up generally would consist of physical exam and blood test about every 3 months for the 1st few years. CT scan should be performed that about 3 months later and then annually until year 3.
[2018-12-04] MEDS: FILGRASTIM-AAFI 300 MCG/0.5 ML SYRINGE SUBCUT (14:38)
--- NOTE | 2018-12-04 14:41 | P.PNONC_ITS ---
PN -Subjective Interval history: Diagnosis: Seminoma, T1b N0 Previous treatment: 1. Orchiectomy in April 2018 2. 2 cycles of EP Interval history: Patient is a 33-year-old man who returns today for follow-up of seminoma. He underwent orchiectomy initially in April 2018. Shortly thereafter he was found to have an enlarged retroperitoneal lymph node. On close follow-up initially shrank a little bit but then continued to grow. Because of that, he started on chemotherapy with etoposide and cisplatin. He has completed 2 of 4 planned courses. He has been tolerating treatment fairly well. He has had some nausea but no vomiting. He has noted some fatigue although has been relatively mild. He has had some intermittent tinnitus. It lasted about a week with his most recent cycle but that has since resolved. No fevers or chills. No shortness of breath or cough. He is not having any pain. A he has not noted any neuropathy. He denies any other changes in his health. His only medications include Zofran and Compazine. - Patient Self-Reported Symptoms SR ears, nose, mouth, throat issues: Ears ringing SR Skin issues: Hair loss or scalp prob SR Gastrointestinal issues: Change in bowel pattern, Constipation Home Medications and Allergies Home Medications Medication Instructions Recorded Confirmed Type lidocaine-prilocaine 1 applictn TOP PRN PRN #30 gram 10/24/18 Rx ondansetron 8 mg PO BID-TID PRN #20 tab 10/24/18 10/24/18 Rx oxycodone-acetaminophen [Percocet] 1 tab PO Q4-6H PRN #14 tab MDD 4 10/24/18 Rx prochlorperazine maleate 10 mg PO Q6-8H PRN #30 tab 10/24/18 10/24/18 Rx [Compazine] ibuprofen [Advil] 400 mg PO QID PRN 11/20/18 11/20/18 History levofloxacin 500 mg PO DAILY #14 tab 12/03/18 Rx Allergies Allergy/AdvReac Type Severity Reaction Status Date / Time No Known Drug Allergies Allergy Verified 10/05/18 17:06 Exam - Constitutional positive no acute distress, positive average body habitus - Routine HEENT Exam Head: Present: normocephalic, atraumatic Eye: Present: EOMI, PERRL. Absent: conjunctival icterus ENT: Present: mucous membranes moist, oropharynx clear - Routine Neck Exam Present: supple. Absent: lymphadenopathy, thyromegaly - Routine Respiratory Exam Present: Clear to auscultation bilaterally. Absent: rales, wheezes - Routine Cardiovascular Exam Present: RRR, S1, S2. Absent: murmur - Routine Abdominal Exam Present: soft, normoactive bowel sounds. Absent: tenderness, organomegaly, mass - Routine Extremities Exam Absent: cyanosis, clubbing, edema - Routine Skin Exam Present: intact. Absent: petechiae, rash - Routine Neurological Exam Present: alert, oriented X3 - Routine Psychiatric Exam Present: normal affect, normal thought process Results - Labs Laboratory Last Values WBC 1.6 X10^3/uL (4.5-11.0) L* 12/03/18 08:50 RBC 3.84 X10^6/uL (4.5-5.9) L 12/03/18 08:50 Hgb 12.4 g/dL (13.5-17.5) L 12/03/18 08:50 Hct 35.0 % (41-53) L 12/03/18 08:50 MCV 91.2 fL (80-100) 12/03/18 08:50 MCH 32.4 PG (26-34) 12/03/18 08:50 MCHC 35.5 % (30-36) 12/03/18 08:50 RDW 13.7 % (11.6-14.8) 12/03/18 08:50 Plt Count 105 X10^3/uL (150-400) L 12/03/18 08:50 Neut % (Auto) Not Reportable 12/03/18 08:50 Lymph % (Auto) Not Reportable 12/03/18 08:50 [place] % (Auto) Not Reportable 12/03/18 08:50 Eos % (Auto) Not Reportable 12/03/18 08:50 Baso % (Auto) Not Reportable 12/03/18 08:50 Neut # (Auto) 1300 /uL (4427-5422) L 11/26/18 08:58 Lymph # (Auto) Not Reportable 12/03/18 08:50 [place] # (Auto) Not Reportable 12/03/18 08:50 Eos # (Auto) 0 /uL (0-450) 11/26/18 08:58 Baso # (Auto) Not Reportable 12/03/18 08:50 Total Counted 50 12/03/18 08:50 Seg Neutrophils % 22.0 % (38-70) L 12/03/18 08:50 Lymphocytes % (Manual) 60.0 % (25-45) H 12/03/18 08:50 Atypical Lymphs % 8.0 % (-0) H 12/03/18 08:50 Monocytes % (Manual) 10.0 % (2-11) 12/03/18 08:50 Neutrophils # (Manual) 352 /uL (2913-2653) L 12/03/18 08:50 RBC Morphology See below 12/03/18 08:50 Anisocytosis 1+ H 12/03/18 08:50 Sodium 138 mmol/L (137-145) 11/19/18 08:23 Potassium 4.7 mmol/L (3.4-5.1) 11/19/18 08:23 Chloride 107 mmol/L (98-107) 11/19/18 08:23 Carbon Dioxide 25 mmol/L (22-32) 11/19/18 08:23 BUN 16 mg/dL (9-20) 11/19/18 08:23 Creatinine 0.70 mg/dL (0.66-1.25) 11/19/18 08:23 Estimated GFR > 60.0 mL/min (>60) 11/19/18 08:23 BUN/Creatinine Ratio 22.9 (6-22) H 11/19/18 08:23 Glucose 81 mg/dL (70-100) 11/19/18 08:23 Calcium 8.9 mg/dL (8.4-10.2) 11/19/18 08:23 Total Bilirubin 0.9 mg/dL (0.2-1.3) 11/19/18 08:23 AST 37 IU/L (17-59) 11/19/18 08:23 ALT 51 IU/L (21-72) 11/19/18 08:23 Alkaline Phosphatase 65 U/L (38-126) 11/19/18 08:23 Lactate Dehydrogenase 585 U/L (313-618) 11/19/18 08:23 Total Protein 7.1 g/dL (6.3-8.2) 11/19/18 08:23 Albumin 4.5 g/dL (3.5-5.0) 11/19/18 08:23 Globulin 2.6 g/dL (1.7-4.1) 11/19/18 08:23 Albumin/Globulin Ratio 1.7 (1.0-2.8) 11/19/18 08:23 Alpha Fetoprotein 5.3 ng/mL (< 6.1) 11/19/18 08:23 HCG, Quant < 2.39 mIU/mL (-2.40) 11/19/18 08:23 Assessment and Plan (1) Seminoma of right testis, stage 1 Problem details: Right-sided pure seminoma Stage IA (pT1b N0 M0 S0) status post right radical orchiectomy on 05/04/2018. A 33-year-old man with a history of stage I pure seminoma now with retroperitoneal adenopathy. His restaging CT scan shows no evidence of residual adenopathy. His previous pulmonary nodule was not seen. His tumor markers have been normal. He currently has no evidence of disease. He will proceed with his 3rd cycle of chemotherapy next week. He will return to clinic in about 3 weeks for follow-up. He will be due for his 4th and final cycle shortly after that. After he completes his chemotherapy I would expect a new baseline CT. Follow- up generally would consist of physical exam and blood test about every 3 months for the 1st few years. CT scan should be performed that about 3 months later and then annually until year 3.
[2018-12-05] MEDS: FILGRASTIM-AAFI 300 MCG/0.5 ML SYRINGE SUBCUT (09:40)
[2018-12-05 09:43] VITALS: BP 124/73; PULSE 72; RESP 16; TEMP 36.4
[2018-12-10 09:04] LABS: Hematocrit 32.3 % (41-53); Hemoglobin 12.2 g/dL (13.5-17.5); Mean Corpuscular HGB Conc 37.6 % (30-36); Mean Corpuscular Hemoglobin 32.7 PG (26-34); Platelet Count 111 X10^3/uL (150-400); Red Blood Cell Count 3.71 X10^6/uL (4.5-5.9); Red Cell Distribution Width 14.8 % (11.6-14.8); White Blood Cell Count 3.9 X10^3/uL (4.5-11.0)
[2018-12-10 09:05] LABS: Alanine Aminotransferase 44 IU/L (21-72); Albumin 4.3 g/dL (3.5-5.0); Albumin Globulin Ratio 1.7 (1.0-2.8); Alkaline Phosphatase 76 U/L (38-126); Aspartate Aminotransferase 28 IU/L (17-59); Bilirubin Total 0.5 mg/dL (0.2-1.3); Blood Urea Nitrogen 16 mg/dL (9-20); Carbon Dioxide 26 mmol/L (22-32); Chloride 102 mmol/L (98-107); Estimated Glomerular Filt Rate > 60.0 mL/min (>60); Globulin 2.5 g/dL (1.7-4.1); Glucose 83 mg/dL (70-100); HEMOLYSIS < 15 (0-50); Lactate Dehydrogenase 540 U/L (313-618); Potassium 4.5 mmol/L (3.4-5.1); Sodium 137 mmol/L (137-145); Total Protein 6.8 g/dL (6.3-8.2)
[2018-12-10 09:06] LABS: Add Manual Diff / Slide Review YES
[2018-12-10 09:18] LABS: Neutrophils Absolute Manual 1443 /uL (3000-5900); Total Cells Counted 100
[2018-12-10 09:21] LABS: Platelet Estimate Decreased on smear; Poikilocytosis 1+
[2018-12-10 09:22] LABS: HCG Quantitative /Beta subunit < 2.39 mIU/mL (-2.40); Rouleaux 1+
[2018-12-10] MEDS: LORazepam 0.5 MG TABLET PO (09:34)
[2018-12-10] MEDS: SODIUM CHLORIDE 0.9% 1,000 ML 500 ML IV (09:35)
[2018-12-10 09:43] VITALS: BP 108/68; PULSE 62; RESP 16; TEMP 36.4
[2018-12-10] MEDS: DEXAMETHASONE 12 MG in SODIUM CHLORIDE 0.9% 50 ML 212 ML IV (10:00)
[2018-12-10] MEDS: ONDANSETRON 16 MG in SODIUM CHLORIDE 0.9% 50 ML 232 ML IV (10:24)
[2018-12-10] MEDS: FOSAPREPITANT 150 MG in SODIUM CHLORIDE 0.9% 150 ML 300 ML IV (10:48)
[2018-12-10] MEDS: MAGNESIUM SULFATE IV (11:33)
[2018-12-10] MEDS: MANNITOL IV (11:33)
[2018-12-10] MEDS: CISPLATIN IV (11:33)
[2018-12-10] MEDS: [UNRECOGNIZED DRUG - OTHER] IV (11:33)
[2018-12-10] MEDS: ETOPOSIDE IV (12:55)
[2018-12-10] MEDS: NORMAL SALINE IV (12:55)
[2018-12-11] MEDS: LORazepam 0.5 MG TABLET PO (08:57)
[2018-12-11] MEDS: SODIUM CHLORIDE 0.9% 1,000 ML 500 ML IV (08:57)
[2018-12-11 09:27] VITALS: BP 134/76; PULSE 75; RESP 16; TEMP 36.5; O2SAT 99
[2018-12-11] MEDS: DEXAMETHASONE 12 MG in SODIUM CHLORIDE 0.9% 50 ML 212 ML IV (09:28)
[2018-12-11] MEDS: ACETAMINOPHEN 325 MG TABLET 650 MG PO (09:28)
[2018-12-11] MEDS: ONDANSETRON 16 MG in SODIUM CHLORIDE 0.9% 50 ML 232 ML IV (09:51)
[2018-12-11] MEDS: MANNITOL IV (10:33)
[2018-12-11] MEDS: [UNRECOGNIZED DRUG - OTHER] IV (10:33)
[2018-12-11] MEDS: CISPLATIN IV (10:33)
[2018-12-11] MEDS: MAGNESIUM SULFATE IV (10:33)
[2018-12-11] MEDS: ETOPOSIDE IV (11:51)
[2018-12-11] MEDS: NORMAL SALINE IV (11:51)
[2018-12-12] MEDS: SODIUM CHLORIDE 0.9% 1,000 ML 500 ML IV (08:43)
[2018-12-12] MEDS: LORazepam 0.5 MG TABLET PO (08:43)
[2018-12-12] MEDS: DEXAMETHASONE 12 MG in SODIUM CHLORIDE 0.9% 50 ML 212 ML IV (08:44)
[2018-12-12] MEDS: ONDANSETRON 16 MG in SODIUM CHLORIDE 0.9% 50 ML 232 ML IV (09:08)
[2018-12-12 09:38] VITALS: BP 108/68; PULSE 65; RESP 16; TEMP 36.7; O2SAT 98
[2018-12-12] MEDS: CISPLATIN IV (10:29)
[2018-12-12] MEDS: MANNITOL IV (10:29)
[2018-12-12] MEDS: [UNRECOGNIZED DRUG - OTHER] IV (10:29)
[2018-12-12] MEDS: MAGNESIUM SULFATE IV (10:29)
[2018-12-12] MEDS: ETOPOSIDE IV (11:46)
[2018-12-12] MEDS: NORMAL SALINE IV (11:46)
[2018-12-12] MEDS: LORazepam 2 MG/ML SYRINGE 0.5 MG IV (13:08)
[2018-12-12 14:34] LABS: Alpha Fetoprotein 4.6 ng/mL (< 6.1)
[2018-12-13] MEDS: DEXAMETHASONE 12 MG in SODIUM CHLORIDE 0.9% 50 ML 212 ML IV (08:50)
[2018-12-13 08:54] VITALS: BP 109/65; PULSE 61; RESP 20; TEMP 36.8; O2SAT 97
[2018-12-13] MEDS: ONDANSETRON 16 MG in SODIUM CHLORIDE 0.9% 50 ML 232 ML IV (09:15)
[2018-12-13] MEDS: LORazepam 2 MG/ML SYRINGE 0.5 MG IV (09:44)
[2018-12-13] MEDS: FAMOTIDINE 20 MG/50 ML PIGGYBACK 200 MG IV (09:59)
[2018-12-13] MEDS: CISPLATIN IV (10:38)
[2018-12-13] MEDS: MAGNESIUM SULFATE IV (10:38)
[2018-12-13] MEDS: [UNRECOGNIZED DRUG - OTHER] IV (10:38)
[2018-12-13] MEDS: MANNITOL IV (10:38)
--- NOTE | 2018-12-13 11:33 | ONC.SCHED ---
ALOXI N7640-6 doses approved 12/13/18-01/15/19 ref#[id number]
[2018-12-13] MEDS: ETOPOSIDE IV (12:04)
[2018-12-13] MEDS: NORMAL SALINE IV (12:04)
[2018-12-13] MEDS: SODIUM CHLORIDE 0.9% 1,000 ML 500 ML IV (13:46)
[2018-12-17] MEDS: SODIUM CHLORIDE 0.9% 1,000 ML 500 ML IV (08:42)
[2018-12-17 08:51] LABS: Add Manual Diff / Slide Review NO; Basophils Absolute Auto 0 /uL (0-100); Basophils Percent Auto 0.1 % (0-2); Eosinophils Absolute Auto 0 /uL (0-450); Eosinophils Percent Auto 0.4 % (2-4); Hematocrit 29.9 % (41-53); Hemoglobin 10.9 g/dL (13.5-17.5); Lymphocytes Absolute Auto 1000 /uL (1100-4500); Lymphocytes Percent Auto 31.6 % (25-40); Mean Corpuscular HGB Conc 36.5 % (30-36); Mean Corpuscular Hemoglobin 33.1 PG (26-34); Mean Corpuscular Volume 90.6 fL (80-100); Monocytes Absolute Auto 100 /uL (0-900); Monocytes Percent Auto 2.4 % (3-14); Neutrophils Absolute Auto 2000 /uL (1500-7000); Neutrophils Percent Auto 65.5 % (50-75); Platelet Count 312 X10^3/uL (150-400); Red Cell Distribution Width 14.6 % (11.6-14.8); White Blood Cell Count 3.1 X10^3/uL (4.5-11.0)
[2018-12-17] MEDS: LORazepam 0.5 MG TABLET PO (08:58)
[2018-12-17] MEDS: DEXAMETHASONE 12 MG in SODIUM CHLORIDE 0.9% 50 ML 212 ML IV (09:11)
[2018-12-17] MEDS: PALONOSETRON 0.25 MG/5 ML VIAL IV (09:15)
[2018-12-17 09:30] VITALS: BP 119/71; PULSE 70; RESP 16; TEMP 36.7
[2018-12-17] MEDS: MANNITOL IV (10:28)
[2018-12-17] MEDS: [UNRECOGNIZED DRUG - OTHER] IV (10:28)
[2018-12-17] MEDS: CISPLATIN IV (10:28)
[2018-12-17] MEDS: MAGNESIUM SULFATE IV (10:28)
[2018-12-17] MEDS: ETOPOSIDE IV (11:44)
[2018-12-17] MEDS: NORMAL SALINE IV (11:44)
--- NOTE | 2018-12-17 12:31 | PC.NURSE ---
Pt is requesting an additional liter of fluids today after his treatment. Pt has a very poor appetite this go around so not sure if you want to stick with NS 1 liter over an hour our switch to something else. Please let me know OTIS Thanks Matthew
[2018-12-17] MEDS: LORazepam 2 MG/ML SYRINGE 0.5 MG IV (13:27)
[2018-12-17] MEDS: SODIUM CHLORIDE 0.9% 1,000 ML 999 ML IV (13:37)
--- NOTE | 2018-12-17 15:01 | PC.NURSE ---
Leonidas was bothered by nausea all w/e. Came in for IV fluids and IV Zofran in ER. Given extra dose of IV Ativan and total of 2 L of IV fluid to help decrease nausea. Instructed to p/u Ativan script and start zofran this PM. also informed of plan. Stressed need to try small amounts of food. Suggested soft foods that might be bland and more tolerable.
[2018-12-25 11:08] LABS: Add Manual Diff / Slide Review NO; Basophils Absolute Auto 0 /uL (0-100); Basophils Percent Auto 0.7 % (0-2); Eosinophils Absolute Auto 0 /uL (0-450); Eosinophils Percent Auto 0.2 % (2-4); Hemoglobin 10.2 g/dL (13.5-17.5); Lymphocytes Absolute Auto 1300 /uL (1100-4500); Lymphocytes Percent Auto 48.5 % (25-40); Mean Corpuscular HGB Conc 36.3 % (30-36); Mean Corpuscular Hemoglobin 33.5 PG (26-34); Mean Corpuscular Volume 92.5 fL (80-100); Monocytes Absolute Auto 400 /uL (0-900); Monocytes Percent Auto 16.5 % (3-14); Neutrophils Absolute Auto 900 /uL (1500-7000); Neutrophils Percent Auto 34.1 % (50-75); Platelet Count 152 X10^3/uL (150-400); Red Blood Cell Count 3.03 X10^6/uL (4.5-5.9); Red Cell Distribution Width 14.5 % (11.6-14.8); White Blood Cell Count 2.6 X10^3/uL (4.5-11.0)
[2018-12-25 11:21] VITALS: BP 120/73; PULSE 73; RESP 18; TEMP 36.6; O2SAT 100
--- NOTE | 2018-12-25 11:58 | ONC.PN ---
PN -Subjective Interval history: Diagnosis: Seminoma, T1b N0 Previous treatment: 1. Orchiectomy in April 2018 2. 3 cycles of EP Interval history: Patient is a 33-year-old man who returns today for follow-up of seminoma. He underwent orchiectomy initially in April 2018. Shortly thereafter he was found to have an enlarged retroperitoneal lymph node. On close follow-up initially shrank a little bit but then continued to grow. Because of that, he started on chemotherapy with etoposide and cisplatin. He has completed 3 of 4 planned courses. He has been tolerating treatment with some difficulty. He has had more nausea and vomiting with with this cycle than with his previous ones. He did require an emergency room visit and was treated with IV fluids and antiemetics with improvement. He has noted some increasing fatigue and dyspnea on exertion particularly when walking up hills. His appetite has been poor and he has been losing some weight. He denies any fevers but has had some chills. He has not noticed any neuropathy. He has had some intermittent tinnitus. No mouth sores or skin rash. He is not having any pain in the chest. He denies any other changes in his health. His only medications include Zofran lorazepam and Compazine. - Patient Self-Reported Symptoms SR Constitution: Chills, Weight loss/gain SR ears, nose, mouth, throat issues: Ears ringing SR Skin issues: Dry skin SR Gastrointestinal issues: Change in bowel pattern, Constipation SR Musculoskeletal issues: Cold hands or feet Home Medications and Allergies Home Medications Medication Instructions Recorded Confirmed Type lidocaine-prilocaine 1 applictn TOP PRN PRN #30 gram 10/24/18 Rx ondansetron 8 mg PO BID-TID PRN #20 tab 10/24/18 10/24/18 Rx oxycodone-acetaminophen [Percocet] 1 tab PO Q4-6H PRN #14 tab MDD 4 10/24/18 Rx prochlorperazine maleate 10 mg PO Q6-8H PRN #30 tab 10/24/18 10/24/18 Rx [Compazine] ibuprofen [Advil] 400 mg PO QID PRN 11/20/18 11/20/18 History levofloxacin 500 mg PO DAILY #14 tab 12/03/18 Rx lorazepam [Ativan] 0.5 mg PO BID-TID PRN #30 tab 12/12/18 Rx Miralax 17 g PO DAILY PRN 12/13/18 12/13/18 History docusate sodium 2 cap PO DAILY PRN MDD 300 mg 12/13/18 12/13/18 History Allergies Allergy/AdvReac Type Severity Reaction Status Date / Time No Known Drug Allergies Allergy Verified 12/15/18 20:09 Exam Vital signs: Vital Signs Temp Pulse Resp BP Pulse Ox 12/25/18 11:21 97.9 F 73 18 120/73 100 Intake and Output 12/24/18 12/25/18 12/25/18 23:59 07:59 15:59 Other: Weight 72.1 kg Patient Weight 12/26/18 07:59 Weight 72.1 kg - Constitutional positive no acute distress, positive average body habitus - Routine HEENT Exam Head: Present: normocephalic, atraumatic Eye: Present: EOMI, PERRL. Absent: conjunctival icterus, scleral injection ENT: Present: mucous membranes moist, oropharynx clear - Routine Neck Exam Present: supple. Absent: lymphadenopathy, thyromegaly - Routine Respiratory Exam Present: Clear to auscultation bilaterally. Absent: rales, wheezes - Routine Cardiovascular Exam Present: RRR, S1, S2. Absent: murmur - Routine Abdominal Exam Present: soft, normoactive bowel sounds. Absent: tenderness, organomegaly, mass - Routine Extremities Exam Absent: cyanosis, clubbing, edema - Routine Back/Spine Exam Back/Spine: Absent: paraspinal tenderness, vertebral tenderness - Routine Skin Exam Present: intact. Absent: petechiae, rash - Routine Neurological Exam Present: alert, oriented X3 Results - Labs Laboratory Last Values WBC 2.6 X10^3/uL (4.5-11.0) L 12/25/18 10:56 RBC 3.03 X10^6/uL (4.5-5.9) L 12/25/18 10:56 Hgb 10.2 g/dL (13.5-17.5) L 12/25/18 10:56 Hct 28.0 % (41-53) L 12/25/18 10:56 MCV 92.5 fL (80-100) 12/25/18 10:56 MCH 33.5 PG (26-34) 12/25/18 10:56 MCHC 36.3 % (30-36) H 12/25/18 10:56 RDW 14.5 % (11.6-14.8) 12/25/18 10:56 Plt Count 152 X10^3/uL (150-400) 12/25/18 10:56 Neut % (Auto) 34.1 % (50-75) L 12/25/18 10:56 Lymph % (Auto) 48.5 % (25-40) H 12/25/18 10:56 [place] % (Auto) 16.5 % (3-14) H 12/25/18 10:56 Eos % (Auto) 0.2 % (2-4) L 12/25/18 10:56 Baso % (Auto) 0.7 % (0-2) 12/25/18 10:56 Neut # (Auto) 900 /uL (9120-6624) L 12/25/18 10:56 Lymph # (Auto) 1300 /uL (5873-9113) 12/25/18 10:56 [place] # (Auto) 400 /uL (0-900) 12/25/18 10:56 Eos # (Auto) 0 /uL (0-450) 12/25/18 10:56 Baso # (Auto) 0 /uL (0-100) 12/25/18 10:56 Total Counted 100 12/10/18 08:25 Seg Neutrophils % 32.0 % (38-70) L 12/10/18 08:25 Band Neutrophils % 5.0 % (3-7) 12/10/18 08:25 Lymphocytes % (Manual) 51.0 % (25-45) H 12/10/18 08:25 Atypical Lymphs % 3.0 % (-0) H 12/10/18 08:25 Monocytes % (Manual) 9.0 % (2-11) 12/10/18 08:25 Neutrophils # (Manual) 1443 /uL (3689-7544) L 12/10/18 08:25 Platelet Estimate Decreased on smear 12/10/18 08:25 RBC Morphology See below 12/10/18 08:25 Poikilocytosis 1+ H 12/10/18 08:25 Anisocytosis 1+ H 12/03/18 08:50 Rouleaux 1+ H 12/10/18 08:25 Sodium 137 mmol/L (137-145) 12/10/18 08:25 Potassium 4.5 mmol/L (3.4-5.1) 12/10/18 08:25 Chloride 102 mmol/L (98-107) 12/10/18 08:25 Carbon Dioxide 26 mmol/L (22-32) 12/10/18 08:25 BUN 16 mg/dL (9-20) 12/10/18 08:25 Creatinine 0.80 mg/dL (0.66-1.25) 12/10/18 08:25 Estimated GFR > 60.0 mL/min (>60) 12/10/18 08:25 BUN/Creatinine Ratio 20.0 (6-22) 12/10/18 08:25 Glucose 83 mg/dL (70-100) 12/10/18 08:25 Calcium 9.0 mg/dL (8.4-10.2) 12/10/18 08:25 Total Bilirubin 0.5 mg/dL (0.2-1.3) 12/10/18 08:25 AST 28 IU/L (17-59) 12/10/18 08:25 ALT 44 IU/L (21-72) 12/10/18 08:25 Alkaline Phosphatase 76 U/L (38-126) 12/10/18 08:25 Lactate Dehydrogenase 540 U/L (313-618) 12/10/18 08:25 Total Protein 6.8 g/dL (6.3-8.2) 12/10/18 08:25 Albumin 4.3 g/dL (3.5-5.0) 12/10/18 08:25 Globulin 2.5 g/dL (1.7-4.1) 12/10/18 08:25 Albumin/Globulin Ratio 1.7 (1.0-2.8) 12/10/18 08:25 Alpha Fetoprotein 4.6 ng/mL (< 6.1) 12/10/18 08:25 HCG, Quant < 2.39 mIU/mL (-2.40) 12/10/18 08:25 Assessment and Plan (1) Seminoma of right testis, stage 1 Problem details: Right-sided pure seminoma Stage IA (pT1b N0 M0 S0) status post right radical orchiectomy on 05/04/2018. A 33-year-old man with a history of stage I pure seminoma now with retroperitoneal adenopathy. His restaging CT scan shows no evidence of residual adenopathy. His previous pulmonary nodule was not seen. His tumor markers have been normal. He currently has no evidence of disease. He will proceed with his 4th and final cycle of chemotherapy next week. I would anticipate a CT scan probably about 6 weeks after that. He has been bothered by increasing nausea and vomiting. Will try and had some Aloxi on day 4 and 5 of his treatment. We may need to schedule some additional hydration as well.
[2018-12-31 09:18] LABS: Add Manual Diff / Slide Review NO; Basophils Absolute Auto 0 /uL (0-100); Basophils Percent Auto 0.2 % (0-2); Eosinophils Absolute Auto 0 /uL (0-450); Eosinophils Percent Auto 0.9 % (2-4); Hematocrit 31.7 % (41-53); Lymphocytes Absolute Auto 1200 /uL (1100-4500); Lymphocytes Percent Auto 50.6 % (25-40); Mean Corpuscular HGB Conc 34.6 % (30-36); Mean Corpuscular Hemoglobin 33.7 PG (26-34); Mean Corpuscular Volume 97.5 fL (80-100); Monocytes Absolute Auto 500 /uL (0-900); Monocytes Percent Auto 23.8 % (3-14); Neutrophils Absolute Auto 600 /uL (1500-7000); Neutrophils Percent Auto 24.5 % (50-75); Platelet Count 185 X10^3/uL (150-400); Red Blood Cell Count 3.25 X10^6/uL (4.5-5.9); Red Cell Distribution Width 20.2 % (11.6-14.8); White Blood Cell Count 2.3 X10^3/uL (4.5-11.0)
[2018-12-31 09:25] LABS: Alanine Aminotransferase 49 IU/L (21-72); Albumin 4.3 g/dL (3.5-5.0); Albumin Globulin Ratio 1.8 (1.0-2.8); Alkaline Phosphatase 78 U/L (38-126); Aspartate Aminotransferase 29 IU/L (17-59); BUN Creatinine Ratio 22.9 (6-22); Bilirubin Total 0.3 mg/dL (0.2-1.3); Blood Urea Nitrogen 16 mg/dL (9-20); Calcium 9.2 mg/dL (8.4-10.2); Carbon Dioxide 27 mmol/L (22-32); Chloride 103 mmol/L (98-107); Estimated Glomerular Filt Rate > 60.0 mL/min (>60); Globulin 2.4 g/dL (1.7-4.1); Glucose 92 mg/dL (70-100); HEMOLYSIS < 15 (0-50); Lactate Dehydrogenase 440 U/L (313-618); Potassium 4.4 mmol/L (3.4-5.1); Sodium 138 mmol/L (137-145); Total Protein 6.7 g/dL (6.3-8.2)
[2018-12-31 09:40] LABS: HCG Quantitative /Beta subunit < 2.39 mIU/mL (-2.40)
[2018-12-31 10:15] LABS: Macrocytosis 1+; Polychromasia 1+
[2018-12-31 10:23] VITALS: BP 122/71; PULSE 70; RESP 18; TEMP 37; O2SAT 100
[2018-12-31] MEDS: FILGRASTIM-AAFI 300 MCG/0.5 ML SYRINGE SUBCUT (10:25)
[2019-01-01 09:36] VITALS: BP 131/73; PULSE 79; RESP 18; TEMP 36.6
[2019-01-01] MEDS: FILGRASTIM-AAFI 300 MCG/0.5 ML SYRINGE SUBCUT (09:37)
[2019-01-01 14:14] LABS: Alpha Fetoprotein 5.3 ng/mL (< 6.1)
[2019-01-02 08:48] LABS: Add Manual Diff / Slide Review YES; Hematocrit 33.8 % (41-53); Hemoglobin 11.7 g/dL (13.5-17.5); Mean Corpuscular HGB Conc 34.7 % (30-36); Mean Corpuscular Volume 97.9 fL (80-100); Platelet Count 184 X10^3/uL (150-400); Red Blood Cell Count 3.45 X10^6/uL (4.5-5.9); Red Cell Distribution Width 21.5 % (11.6-14.8); White Blood Cell Count 6.4 X10^3/uL (4.5-11.0)
[2019-01-02 09:12] LABS: Neutrophils Absolute Manual 3136 /uL (3000-5900); Nucleated Red Blood Cells 2 #/Diff; Total Cells Counted 100
[2019-01-02 09:13] LABS: Anisocytosis 2+; Poikilocytosis 1+; Polychromasia 1+
[2019-01-02 09:20] VITALS: BP 118/62; PULSE 79; RESP 16; TEMP 36.7; O2SAT 98
[2019-01-02] MEDS: SODIUM CHLORIDE 0.9% 1,000 ML 500 ML IV (09:28)
[2019-01-02] MEDS: DEXAMETHASONE 12 MG in SODIUM CHLORIDE 0.9% 50 ML 212 ML IV (09:36)
[2019-01-02] MEDS: LORazepam 2 MG/ML SYRINGE 0.5 MG IV (09:38)
[2019-01-02] MEDS: PALONOSETRON 0.25 MG/5 ML VIAL IV (10:22)
[2019-01-02] MEDS: FAMOTIDINE 20 MG/50 ML PIGGYBACK 200 MG IV (10:22)
[2019-01-02] MEDS: FOSAPREPITANT 150 MG in SODIUM CHLORIDE 0.9% 150 ML 300 ML IV (11:03)
[2019-01-02] MEDS: [UNRECOGNIZED DRUG - OTHER] IV (11:50)
[2019-01-02] MEDS: MANNITOL IV (11:50)
[2019-01-02] MEDS: MAGNESIUM SULFATE IV (11:50)
[2019-01-02] MEDS: CISPLATIN IV (11:50)
[2019-01-02] MEDS: ETOPOSIDE IV (13:13)
[2019-01-02] MEDS: NORMAL SALINE IV (13:13)
[2019-01-03] MEDS: SODIUM CHLORIDE 0.9% 1,000 ML 500 ML IV (08:43)
[2019-01-03] MEDS: DEXAMETHASONE 12 MG in SODIUM CHLORIDE 0.9% 50 ML 212 ML IV (08:51)
[2019-01-03] MEDS: LORazepam 2 MG/ML SYRINGE 0.5 MG IV (09:19)
[2019-01-03 09:25] VITALS: BP 121/54; PULSE 78; RESP 18; TEMP 36.7; O2SAT 98
[2019-01-03] MEDS: FAMOTIDINE 20 MG/50 ML PIGGYBACK 200 MG IV (09:55)
[2019-01-03] MEDS: [UNRECOGNIZED DRUG - OTHER] IV (10:34)
[2019-01-03] MEDS: MANNITOL IV (10:34)
[2019-01-03] MEDS: CISPLATIN IV (10:34)
[2019-01-03] MEDS: MAGNESIUM SULFATE IV (10:34)
[2019-01-03] MEDS: NORMAL SALINE IV (11:51)
[2019-01-03] MEDS: ETOPOSIDE IV (11:51)
[2019-01-03] MEDS: SODIUM CHLORIDE 0.9% 500 ML IV (13:40)
[2019-01-07 09:02] LABS: Hematocrit 30.1 % (41-53); Hemoglobin 10.8 g/dL (13.5-17.5); Mean Corpuscular Hemoglobin 34.5 PG (26-34); Mean Corpuscular Volume 95.7 fL (80-100); Platelet Count 156 X10^3/uL (150-400); Red Blood Cell Count 3.15 X10^6/uL (4.5-5.9); Red Cell Distribution Width 19.1 % (11.6-14.8)
[2019-01-07 09:21] LABS: Add Manual Diff / Slide Review YES; White Blood Cell Count 1.6 X10^3/uL (4.5-11.0)
[2019-01-07 09:29] LABS: Neutrophils Absolute Manual 544 /uL (3000-5900); Total Cells Counted 50
[2019-01-07 09:32] LABS: Anisocytosis 3+; Macrocytosis 1+; Microcytosis 1+; Ovalocytes 2+; Platelet Estimate Adequate on smear; Poikilocytosis 2+
[2019-01-07 09:33] LABS: Hypochromasia 1+; Tear Drop Cells 1+
[2019-01-07 09:35] LABS: Burr Cells 1+; Toxic Granulation Present
[2019-01-07] MEDS: SODIUM CHLORIDE 0.9% 1,000 ML 500 ML IV (10:31)
[2019-01-07] MEDS: DEXAMETHASONE 12 MG in SODIUM CHLORIDE 0.9% 50 ML 212 ML IV (10:36)
[2019-01-07] MEDS: LORazepam 2 MG/ML SYRINGE 0.5 MG IV (11:00)
[2019-01-07] MEDS: ONDANSETRON 16 MG in SODIUM CHLORIDE 0.9% 50 ML 232 ML IV (11:12)
[2019-01-07] MEDS: FAMOTIDINE 20 MG/50 ML PIGGYBACK 200 MG IV (11:50)
[2019-01-07] MEDS: [UNRECOGNIZED DRUG - OTHER] IV (12:36)
[2019-01-07] MEDS: MANNITOL IV (12:36)
[2019-01-07] MEDS: MAGNESIUM SULFATE IV (12:36)
[2019-01-07] MEDS: CISPLATIN IV (12:36)
[2019-01-07 12:57] VITALS: BP 111/67; PULSE 77; RESP 18; TEMP 36.7; O2SAT 99
[2019-01-07] MEDS: ETOPOSIDE IV (14:46)
[2019-01-07] MEDS: NORMAL SALINE IV (14:46)
[2019-01-08 08:45] VITALS: BP 115/65; PULSE 70; RESP 18; TEMP 36.7; O2SAT 98
[2019-01-08] MEDS: SODIUM CHLORIDE 0.9% 1,000 ML 500 ML IV (09:14)
[2019-01-08] MEDS: LORazepam 2 MG/ML SYRINGE 0.5 MG IV (09:22)
[2019-01-08] MEDS: FAMOTIDINE 20 MG/50 ML PIGGYBACK 200 MG IV (09:23)
[2019-01-08] MEDS: ONDANSETRON 16 MG in SODIUM CHLORIDE 0.9% 50 ML 232 ML IV (09:48)
[2019-01-08] MEDS: DEXAMETHASONE 12 MG in SODIUM CHLORIDE 0.9% 50 ML 212 ML IV (10:13)
--- NOTE | 2019-01-08 10:34 | ONC.NAV ---
Description: Financial Assistance Activity: RELATIONSHIP MANAGER provided pt with 2-checks from the [facility] Medical Relief Fund for travel reimbursement to treatment. No further needs indicated at this time.
[2019-01-08] MEDS: MANNITOL IV (11:18)
[2019-01-08] MEDS: CISPLATIN IV (11:18)
[2019-01-08] MEDS: [UNRECOGNIZED DRUG - OTHER] IV (11:18)
[2019-01-08] MEDS: MAGNESIUM SULFATE IV (11:18)
[2019-01-08] MEDS: NORMAL SALINE IV (12:47)
[2019-01-08] MEDS: ETOPOSIDE IV (12:47)
[2019-01-08] MEDS: SODIUM CHLORIDE 0.9% 1,000 ML 1000 ML IV (14:43)
[2019-01-09] MEDS: LORazepam 2 MG/ML SYRINGE 0.5 MG IV ×2 (08:54→12:03)
[2019-01-09] MEDS: FAMOTIDINE 20 MG/50 ML PIGGYBACK 200 MG IV (08:54)
[2019-01-09] MEDS: DEXAMETHASONE 12 MG in SODIUM CHLORIDE 0.9% 50 ML 212 ML IV (09:22)
[2019-01-09 09:39] VITALS: BP 116/72; PULSE 72; RESP 18; TEMP 36.9
[2019-01-09] MEDS: SODIUM CHLORIDE 0.9% 1,000 ML 500 ML IV (10:02)
[2019-01-09] MEDS: PALONOSETRON 0.25 MG/5 ML VIAL IV (10:02)
[2019-01-09] MEDS: [UNRECOGNIZED DRUG - OTHER] IV (11:00)
[2019-01-09] MEDS: MAGNESIUM SULFATE IV (11:00)
[2019-01-09] MEDS: CISPLATIN IV (11:00)
[2019-01-09] MEDS: MANNITOL IV (11:00)
--- NOTE | 2019-01-09 11:52 | ONC.NAV ---
*Provided Last Chemo Card.
[2019-01-09] MEDS: ETOPOSIDE IV (12:25)
[2019-01-09] MEDS: NORMAL SALINE IV (12:25)
[2019-01-09] MEDS: SODIUM CHLORIDE 0.9% 1,000 ML 1000 ML IV (14:50)
[2019-01-10] MEDS: SODIUM CHLORIDE 0.9% 1,000 ML 1000 ML IV (09:53)
[2019-01-10] MEDS: LORazepam 2 MG/ML SYRINGE 0.5 MG IV (09:53)
--- NOTE | 2019-01-10 10:15 | ONC.NAV ---
Description: Check-in, preparation for Survivorship Activity: Met with pt to check-in about coping, support needs, and his plan moving forward. Pt completed his last treatment yesterday, states that this week has been particularly rough for him in terms of nausea and fatigue. He had hoped that he could return to work by next week, however he may need to prolong that by another week. 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 He was excellent support through his family,significant other, and [place] system. SLIVER CHOPPER offered encouragement and support as he moves forward into survivorship. No further needs identified at this time.
[2019-01-10 11:30] VITALS: BP 116/69; PULSE 70; RESP 18; TEMP 36.9
[2019-01-14 10:00] LABS: Hematocrit 24.6 % (41-53); Hemoglobin 8.7 g/dL (13.5-17.5); Mean Corpuscular HGB Conc 35.5 % (30-36); Mean Corpuscular Hemoglobin 34.3 PG (26-34); Mean Corpuscular Volume 96.5 fL (80-100); Platelet Count 158 X10^3/uL (150-400); Red Blood Cell Count 2.55 X10^6/uL (4.5-5.9); Red Cell Distribution Width 18.2 % (11.6-14.8)
[2019-01-14 10:02] LABS: White Blood Cell Count 1.3 X10^3/uL (4.5-11.0)
[2019-01-14 10:03] LABS: Add Manual Diff / Slide Review YES
[2019-01-14 10:24] LABS: Anisocytosis 2+; Neutrophils Absolute Manual 260 /uL (3000-5900); Poikilocytosis 1+; Total Cells Counted 100
[2019-01-14] MEDS: FILGRASTIM-AAFI 300 MCG/0.5 ML SYRINGE SUBCUT (10:45)
[2019-01-14 10:48] VITALS: BP 126/78; PULSE 63; RESP 16; TEMP 36.7; O2SAT 100
[2019-01-15 14:14] VITALS: BP 120/63; PULSE 96; RESP 16; TEMP 36.8
[2019-01-15] MEDS: FILGRASTIM-AAFI 300 MCG/0.5 ML SYRINGE SUBCUT (14:16)
[2019-01-16] MEDS: FILGRASTIM-AAFI 300 MCG/0.5 ML SYRINGE SUBCUT (13:20)
[2019-01-16 13:30] VITALS: BP 121/62; PULSE 89; RESP 18; TEMP 36.9
[2019-01-22 11:01] VITALS: BP 122/78; PULSE 58; RESP 16; TEMP 37; O2SAT 100
[2019-01-22 11:02] LABS: Hematocrit 27.5 % (41-53); Hemoglobin 10.1 g/dL (13.5-17.5); Mean Corpuscular HGB Conc 36.8 % (30-36); Mean Corpuscular Hemoglobin 36.5 PG (26-34); Mean Corpuscular Volume 99.3 fL (80-100); Platelet Count 220 X10^3/uL (150-400); Red Blood Cell Count 2.77 X10^6/uL (4.5-5.9); Red Cell Distribution Width 19.9 % (11.6-14.8); White Blood Cell Count 2.9 X10^3/uL (4.5-11.0)
[2019-01-22 11:05] LABS: Add Manual Diff / Slide Review YES
[2019-01-22 11:12] LABS: Alanine Aminotransferase 35 IU/L (21-72); Albumin 4.2 g/dL (3.5-5.0); Albumin Globulin Ratio 1.8 (1.0-2.8); Alkaline Phosphatase 73 U/L (38-126); Aspartate Aminotransferase 27 IU/L (17-59); BUN Creatinine Ratio 24.3 (6-22); Bilirubin Total 0.4 mg/dL (0.2-1.3); Blood Urea Nitrogen 17 mg/dL (9-20); Carbon Dioxide 26 mmol/L (22-32); Chloride 103 mmol/L (98-107); Estimated Glomerular Filt Rate > 60.0 mL/min (>60); Globulin 2.3 g/dL (1.7-4.1); Glucose 89 mg/dL (70-100); HEMOLYSIS < 15 (0-50); Lactate Dehydrogenase 508 U/L (313-618); Potassium 4.5 mmol/L (3.4-5.1); Sodium 137 mmol/L (137-145); Total Protein 6.5 g/dL (6.3-8.2)
--- NOTE | 2019-01-22 11:26 | P.PNONC_ITS ---
PN -Subjective Interval history: Diagnosis: Seminoma, initially T1b N0, but later found to have retroperitoneal adenopathy. Previous treatment: 1. Orchiectomy in April 2018 2. 4 cycles of EP finishing December 2018. Interval history: Patient is a 33-year-old man who returns today for follow-up of seminoma. He underwent orchiectomy initially in April 2018. Shortly thereafter he was found to have an enlarged retroperitoneal lymph node. On close follow-up initially shrank a little bit but then continued to grow. Because of that, he started on chemotherapy with etoposide and cisplatin. He has completed 4 planned courses about 2 weeks ago. He had some increased nausea and vomiting with his last cycle of treatment but it has since resolved. He is eating and drinking better. Strength and energy level have been improving. He has had some dyspnea on exertion but thinks that that has been improving day by day as well. He is not having any pain. He has not noted any neuropathy. Bowels have been moving normally. Last week, he noted some pain and swelling in the axilla and felt a lump there. It resolved after a few days. He did not have any obvious infection, inflammation or trauma to the hand or arm. He denies any other changes in his health. His only medications include Zofran lorazepam and Compazine although he is not taking them. - Patient Self-Reported Symptoms SR Constitution: Chills, Weight loss/gain SR ears, nose, mouth, throat issues: Nose bleeds SR Cardiovascular issues: Shortness of breath with activity or lying flat SR Skin issues: Dry skin SR Gastrointestinal issues: Change in bowel pattern, Constipation SR Musculoskeletal issues: Cold hands or feet Home Medications and Allergies Home Medications Medication Instructions Recorded Confirmed Type lidocaine-prilocaine 1 applictn TOP PRN PRN #30 gram 10/24/18 Rx ondansetron 8 mg PO BID-TID PRN #20 tab 10/24/18 10/24/18 Rx oxycodone-acetaminophen [Percocet] 1 tab PO Q4-6H PRN #14 tab MDD 4 10/24/18 Rx prochlorperazine maleate 10 mg PO Q6-8H PRN #30 tab 10/24/18 10/24/18 Rx [Compazine] ibuprofen [Advil] 400 mg PO QID PRN 11/20/18 11/20/18 History lorazepam [Ativan] 0.5 mg PO BID-TID PRN #30 tab 12/12/18 Rx Allergies Allergy/AdvReac Type Severity Reaction Status Date / Time No Known Drug Allergies Allergy Verified 12/15/18 20:09 Exam Vital signs: Vital Signs Temp Pulse Resp BP Pulse Ox 01/22/19 11:01 98.6 F 58 L 16 122/78 100 Intake and Output 01/21/19 01/22/19 01/22/19 23:59 07:59 15:59 Other: Weight 73.5 kg Patient Weight 01/22/19 23:59 Weight 73.5 kg - Constitutional positive no acute distress, positive average body habitus - Routine HEENT Exam Head: Present: normocephalic, atraumatic Eye: Present: EOMI, PERRL. Absent: conjunctival icterus, scleral injection ENT: Present: mucous membranes moist, oropharynx clear - Routine Neck Exam Present: supple. Absent: lymphadenopathy, thyromegaly - Routine Chest/Breast/Axilla Exam Chest wall exam standard: Absent: tenderness Axillae: Absent: lymphadenopathy - Routine Respiratory Exam Present: Clear to auscultation bilaterally. Absent: rales, wheezes - Routine Cardiovascular Exam Present: RRR, S1, S2. Absent: murmur - Routine Abdominal Exam Present: soft, normoactive bowel sounds. Absent: tenderness, organomegaly, mass - Routine Extremities Exam Absent: cyanosis, clubbing, edema - Routine Back/Spine Exam Back/Spine: Absent: vertebral tenderness - Routine Skin Exam Present: intact. Absent: petechiae, rash - Routine Neurological Exam Present: alert, oriented X3 - Routine Psychiatric Exam Present: normal affect, normal thought process Results - Labs Laboratory Last Values WBC 2.9 X10^3/uL (4.5-11.0) L 01/22/19 10:23 RBC 2.77 X10^6/uL (4.5-5.9) L 01/22/19 10:23 Hgb 10.1 g/dL (13.5-17.5) L 01/22/19 10:23 Hct 27.5 % (41-53) L 01/22/19 10:23 MCV 99.3 fL (80-100) 01/22/19 10:23 MCH 36.5 PG (26-34) H 01/22/19 10:23 MCHC 36.8 % (30-36) H 01/22/19 10:23 RDW 19.9 % (11.6-14.8) H 01/22/19 10:23 Plt Count 220 X10^3/uL (150-400) 01/22/19 10:23 Neut % (Auto) Not Reportable 01/22/19 10:23 Lymph % (Auto) Not Reportable 01/22/19 10:23 [place] % (Auto) Not Reportable 01/22/19 10:23 Eos % (Auto) Not Reportable 01/22/19 10:23 Baso % (Auto) Not Reportable 01/22/19 10:23 Neut # (Auto) 600 /uL (5375-6073) L 12/31/18 09:00 Lymph # (Auto) Not Reportable 01/22/19 10:23 [place] # (Auto) Not Reportable 01/22/19 10:23 Eos # (Auto) 0 /uL (0-450) 12/31/18 09:00 Baso # (Auto) Not Reportable 01/22/19 10:23 Total Counted 100 01/14/19 09:50 Seg Neutrophils % 20.0 % (38-70) L 01/14/19 09:50 Band Neutrophils % 2.0 % (3-7) L 01/07/19 08:08 Lymphocytes % (Manual) 76.0 % (25-45) H 01/14/19 09:50 Atypical Lymphs % 6.0 % (-0) H 01/07/19 08:08 Monocytes % (Manual) 4.0 % (2-11) 01/14/19 09:50 Eosinophils % (Manual) 4.0 % (2-4) 01/07/19 08:08 Neutrophils # (Manual) 260 /uL (4728-4871) L 01/14/19 09:50 Nucleated RBCs 2 #/Diff (-0) H 01/02/19 08:26 Toxic Granulation Present H 01/07/19 08:08 Platelet Estimate Adequate on smear 01/07/19 08:08 RBC Morphology Not Reportable 01/14/19 09:50 Polychromasia 1+ H 01/02/19 08:26 Hypochromasia 1+ H 01/07/19 08:08 Poikilocytosis 1+ H 01/14/19 09:50 Anisocytosis 2+ H 01/14/19 09:50 Microcytosis 1+ H 01/07/19 08:08 Macrocytosis 1+ H 01/07/19 08:08 Tear Drop Cells 1+ H 01/07/19 08:08 Ovalocytes 2+ H 01/07/19 08:08 [place] Cells 1+ H 01/07/19 08:08 Rouleaux 1+ H 12/10/18 08:25 Sodium 137 mmol/L (137-145) 01/22/19 09:10 Potassium 4.5 mmol/L (3.4-5.1) 01/22/19 09:10 Chloride 103 mmol/L (98-107) 01/22/19 09:10 Carbon Dioxide 26 mmol/L (22-32) 01/22/19 09:10 BUN 17 mg/dL (9-20) 01/22/19 09:10 Creatinine 0.70 mg/dL (0.66-1.25) 01/22/19 09:10 Estimated GFR > 60.0 mL/min (>60) 01/22/19 09:10 BUN/Creatinine Ratio 24.3 (6-22) H 01/22/19 09:10 Glucose 89 mg/dL (70-100) 01/22/19 09:10 Calcium 9.0 mg/dL (8.4-10.2) 01/22/19 09:10 Total Bilirubin 0.4 mg/dL (0.2-1.3) 01/22/19 09:10 AST 27 IU/L (17-59) 01/22/19 09:10 ALT 35 IU/L (21-72) 01/22/19 09:10 Alkaline Phosphatase 73 U/L (38-126) 01/22/19 09:10 Lactate Dehydrogenase 508 U/L (313-618) 01/22/19 09:10 Total Protein 6.5 g/dL (6.3-8.2) 01/22/19 09:10 Albumin 4.2 g/dL (3.5-5.0) 01/22/19 09:10 Globulin 2.3 g/dL (1.7-4.1) 01/22/19 09:10 Albumin/Globulin Ratio 1.8 (1.0-2.8) 01/22/19 09:10 Alpha Fetoprotein 5.3 ng/mL (< 6.1) 12/31/18 09:00 HCG, Quant < 2.39 mIU/mL (-2.40) 12/31/18 09:00 Assessment and Plan (1) Seminoma of right testis, stage 1 Problem details: Right-sided pure seminoma Stage IA (pT1b N0 M0 S0) status post right radical orchiectomy on 05/04/2018. A 33-year-old man with a history of stage I pure seminoma now with retroperitoneal adenopathy. He has completed 4 cycles of etoposide and cis- tunica-biloxi and is beginning to recover. He will return to clinic in about 4 weeks or so for follow-up. He will be due for CT scan at that time. Assuming that there is no evidence of residual disease, I think he could have his port removed after that. He does have some dyspnea on exertion that I think is related to anemia. I would expect that to improved gradually over the next 6-8 weeks. He did have questions about resuming exercise. I think that it is safe for him to proceed as tolerated. I cautioned him that his strength and energy level will not be the same as they were before. He will need to start out at a much lower level of intensity then he previously had been. He will return to clinic in about 4 weeks or so for follow-up.
[2019-01-22 11:27] LABS: Neutrophils Absolute Manual 1073 /uL (3000-5900); Total Cells Counted 100
[2019-01-22 11:28] LABS: Anisocytosis 2+; Polychromasia 1+
[2019-01-22 11:29] LABS: HCG Quantitative /Beta subunit < 2.39 mIU/mL (-2.40)
[2019-01-22 11:32] VITALS: BP 122/78; PULSE 58; RESP 18; TEMP 37; O2SAT 100
[2019-02-18 08:50] LABS: Add Manual Diff / Slide Review NO; Basophils Absolute Auto 0 /uL (0-100); Basophils Percent Auto 0.8 % (0-2); Eosinophils Absolute Auto 100 /uL (0-450); Eosinophils Percent Auto 3.8 % (2-4); Hematocrit 38.4 % (41-53); Hemoglobin 13.2 g/dL (13.5-17.5); Lymphocytes Absolute Auto 1000 /uL (1100-4500); Lymphocytes Percent Auto 25.8 % (25-40); Mean Corpuscular HGB Conc 34.5 % (30-36); Mean Corpuscular Hemoglobin 35.6 PG (26-34); Mean Corpuscular Volume 103.4 fL (80-100); Monocytes Absolute Auto 600 /uL (0-900); Monocytes Percent Auto 15.8 % (3-14); Neutrophils Absolute Auto 2000 /uL (1500-7000); Neutrophils Percent Auto 53.8 % (50-75); Platelet Count 172 X10^3/uL (150-400); Red Blood Cell Count 3.71 X10^6/uL (4.5-5.9); Red Cell Distribution Width 14.4 % (11.6-14.8); White Blood Cell Count 3.7 X10^3/uL (4.5-11.0)
[2019-02-18 09:00] LABS: Alanine Aminotransferase 202 IU/L (21-72); Albumin 4.5 g/dL (3.5-5.0); Albumin Globulin Ratio 1.9 (1.0-2.8); Alkaline Phosphatase 78 U/L (38-126); Aspartate Aminotransferase 84 IU/L (17-59); BUN Creatinine Ratio 23.8 (6-22); Bilirubin Total 0.8 mg/dL (0.2-1.3); Blood Urea Nitrogen 19 mg/dL (9-20); Carbon Dioxide 25 mmol/L (22-32); Chloride 103 mmol/L (98-107); Estimated Glomerular Filt Rate > 60.0 mL/min (>60); Globulin 2.4 g/dL (1.7-4.1); Glucose 85 mg/dL (70-100); HEMOLYSIS < 15 (0-50); Lactate Dehydrogenase 440 U/L (313-618); Potassium 4.4 mmol/L (3.4-5.1); Sodium 136 mmol/L (137-145); Total Protein 6.9 g/dL (6.3-8.2)
[2019-02-18 09:17] LABS: HCG Quantitative /Beta subunit < 2.39 mIU/mL (-2.40)
[2019-02-20 15:07] VITALS: BP 127/80; PULSE 73; RESP 18; TEMP 36.7; O2SAT 99
--- NOTE | 2019-02-20 15:39 | ONC.PN ---
PN -Subjective Interval history: Diagnosis: Seminoma, initially T1b N0, but later found to have retroperitoneal adenopathy. Previous treatment: 1. Orchiectomy in April 2018 2. 4 cycles of EP finishing December 2018. Interval history: Patient is a 33-year-old man who returns today for follow-up of seminoma. He underwent orchiectomy initially in April 2018. Shortly thereafter he was found to have an enlarged retroperitoneal lymph node. On close follow-up initially shrank a little bit but then continued to grow. Because of that, he started on chemotherapy with etoposide and cisplatin. He has completed 4 planned courses in December 2018. Since his last visit here, he has been recovering. He notes that his strength and energy level have improved although not quite to normal. He is not having any nausea or vomiting. His appetite has been good. Bowels have been moving normally. He denies any shortness of breath cough for chest pain. No fevers chills or sweats. He was intending to start running but because of his job and weather he has not started it yet. He has no specific complaints today. His not taking any medications. - Patient Self-Reported Symptoms SR Constitution: Chills, Weight loss/gain SR ears, nose, mouth, throat issues: Nose bleeds SR respiratory issues: Cough SR Cardiovascular issues: Shortness of breath with activity or lying flat SR Skin issues: Dry skin SR Gastrointestinal issues: Change in bowel pattern, Constipation SR Musculoskeletal issues: Back or neck pain Home Medications and Allergies Allergies Allergy/AdvReac Type Severity Reaction Status Date / Time No Known Drug Allergies Allergy Verified 12/15/18 20:09 Exam Vital signs: Vital Signs Temp Pulse Resp BP Pulse Ox 02/20/19 15:07 98.1 F 73 18 127/80 99 Intake and Output 02/19/19 02/20/19 02/20/19 23:59 07:59 15:59 Other: Weight 74.8 kg Patient Weight 02/20/19 23:59 Weight 74.8 kg - Constitutional positive no acute distress, positive average body habitus - Routine HEENT Exam Head: Present: normocephalic, atraumatic Eye: Present: EOMI, PERRL. Absent: conjunctival icterus, scleral injection ENT: Present: mucous membranes moist, oropharynx clear - Routine Neck Exam Present: supple. Absent: lymphadenopathy, thyromegaly - Routine Respiratory Exam Present: Clear to auscultation bilaterally. Absent: rales, wheezes - Routine Cardiovascular Exam Present: RRR, S1, S2. Absent: murmur - Routine Abdominal Exam Present: soft, normoactive bowel sounds. Absent: tenderness, organomegaly, mass - Routine Extremities Exam Absent: cyanosis, clubbing, edema - Routine Back/Spine Exam Back/Spine: Absent: paraspinal tenderness, vertebral tenderness - Routine Skin Exam Present: intact. Absent: petechiae, rash - Routine Neurological Exam Present: alert, oriented X3 - Routine Psychiatric Exam Present: normal affect, normal thought process Results - Labs Laboratory Last Values WBC 3.7 X10^3/uL (4.5-11.0) L 02/18/19 08:10 RBC 3.71 X10^6/uL (4.5-5.9) L 02/18/19 08:10 Hgb 13.2 g/dL (13.5-17.5) L 02/18/19 08:10 Hct 38.4 % (41-53) L 02/18/19 08:10 MCV 103.4 fL (80-100) H 02/18/19 08:10 MCH 35.6 PG (26-34) H 02/18/19 08:10 MCHC 34.5 % (30-36) 02/18/19 08:10 RDW 14.4 % (11.6-14.8) 02/18/19 08:10 Plt Count 172 X10^3/uL (150-400) 02/18/19 08:10 Neut % (Auto) 53.8 % (50-75) 02/18/19 08:10 Lymph % (Auto) 25.8 % (25-40) 02/18/19 08:10 [place] % (Auto) 15.8 % (3-14) H 02/18/19 08:10 Eos % (Auto) 3.8 % (2-4) 02/18/19 08:10 Baso % (Auto) 0.8 % (0-2) 02/18/19 08:10 Neut # (Auto) 2000 /uL (2625-9327) 02/18/19 08:10 Lymph # (Auto) 1000 /uL (8341-0708) L 02/18/19 08:10 [place] # (Auto) 600 /uL (0-900) 02/18/19 08:10 Eos # (Auto) 100 /uL (0-450) 02/18/19 08:10 Baso # (Auto) 0 /uL (0-100) 02/18/19 08:10 Total Counted 100 01/22/19 10:23 Seg Neutrophils % 31.0 % (38-70) L 01/22/19 10:23 Band Neutrophils % 6.0 % (3-7) 01/22/19 10:23 Lymphocytes % (Manual) 42.0 % (25-45) 01/22/19 10:23 Atypical Lymphs % 6.0 % (-0) H 01/07/19 08:08 Monocytes % (Manual) 12.0 % (2-11) H 01/22/19 10:23 Eosinophils % (Manual) 2.0 % (2-4) 01/22/19 10:23 Basophils % (Manual) 2.0 % (0-1) H 01/22/19 10:23 Metamyelocytes % 1.0 % (-0) H 01/22/19 10:23 Myelocytes % 4.0 % (-0) H 01/22/19 10:23 Neutrophils # (Manual) 1073 /uL (4060-2901) L 01/22/19 10:23 Nucleated RBCs 2 #/Diff (-0) H 01/02/19 08:26 Toxic Granulation Present H 01/07/19 08:08 Platelet Estimate Adequate on smear 01/07/19 08:08 RBC Morphology See below 01/22/19 10:23 Polychromasia 1+ H 01/22/19 10:23 Hypochromasia 1+ H 01/07/19 08:08 Poikilocytosis 1+ H 01/14/19 09:50 Anisocytosis 2+ H 01/22/19 10:23 Microcytosis 1+ H 01/07/19 08:08 Macrocytosis 1+ H 01/07/19 08:08 Tear Drop Cells 1+ H 01/07/19 08:08 Ovalocytes 2+ H 01/07/19 08:08 [place] Cells 1+ H 01/07/19 08:08 Rouleaux 1+ H 12/10/18 08:25 Sodium 136 mmol/L (137-145) L 02/18/19 08:10 Potassium 4.4 mmol/L (3.4-5.1) 02/18/19 08:10 Chloride 103 mmol/L (98-107) 02/18/19 08:10 Carbon Dioxide 25 mmol/L (22-32) 02/18/19 08:10 BUN 19 mg/dL (9-20) 02/18/19 08:10 Creatinine 0.80 mg/dL (0.66-1.25) 02/18/19 08:10 Estimated GFR > 60.0 mL/min (>60) 02/18/19 08:10 BUN/Creatinine Ratio 23.8 (6-22) H 02/18/19 08:10 Glucose 85 mg/dL (70-100) 02/18/19 08:10 Calcium 9.0 mg/dL (8.4-10.2) 02/18/19 08:10 Total Bilirubin 0.8 mg/dL (0.2-1.3) 02/18/19 08:10 AST 84 IU/L (17-59) H 02/18/19 08:10 ALT 202 IU/L (21-72) H 02/18/19 08:10 Alkaline Phosphatase 78 U/L (38-126) 02/18/19 08:10 Lactate Dehydrogenase 440 U/L (313-618) 02/18/19 08:10 Total Protein 6.9 g/dL (6.3-8.2) 02/18/19 08:10 Albumin 4.5 g/dL (3.5-5.0) 02/18/19 08:10 Globulin 2.4 g/dL (1.7-4.1) 02/18/19 08:10 Albumin/Globulin Ratio 1.9 (1.0-2.8) 02/18/19 08:10 Alpha Fetoprotein 5.3 ng/mL (< 6.1) 12/31/18 09:00 HCG, Quant < 2.39 mIU/mL (-2.40) 02/18/19 08:10 Assessment and Plan (1) Seminoma of right testis, stage 1 Problem details: Right-sided pure seminoma Stage IA (pT1b N0 M0 S0) status post right radical orchiectomy on 05/04/2018. 33-year-old with a history of seminoma with lymph node metastasis. He has completed his chemotherapy. His CT scan shows complete resolution of that adenopathy. There is currently no evidence of disease. His tumor markers are normal. His white count and red cell count have improved although not quite normalized. He will return to clinic in about 3 months for follow-up. I would anticipate another CT scan in about 6 months.
[2019-02-21 15:58] LABS: Alpha Fetoprotein 4.8 ng/mL (< 6.1)
--- NOTE | 2019-03-18 15:54 | PC.NURSE ---
Addendum entered by Anai Betancourt R.N. 03/20/19 17:09: Per Dr. Walker patient should return for follow up q 3months for first year but can return somewhat early per patient's request to have first visit done in March so that he can hopefully return to work. Patient also informed that Dr. Walker will order a CT about 6 months post the last CT and CXR q 6 months in the first year. Patient can clarify further at his visit. Patient voiced understanding. Supply Person informed to schedule visit in March and inform patient. Original Note: Patient called requesting to know his surveillance schedule (frequency of labs and CT scans). He was informed per message on his cell phone ([phone]) that a message in is to Dr. Walker and we will call when a reply is in.
--- NOTE | 2019-04-02 14:22 | ONC.MSW ---
Description: Medical Status Letter for Employer Activity: This [employer] compiled the NCCN guidelines and recent imaging clinicals for Dr. Walker to move forward with pt's request to provide a letter to his superior officer in the [place] that he is required to have in order to be approved for duty again. Dr. Walker will write this and have it available for pt during his next appt.
--- NOTE | 2019-04-25 09:54 | ONC.MSW ---
Description: Employment Letter Activity: Sent pt the letter and supporting documents that he requested of Dr. 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 No further needs indicated at this time.
[2019-04-30 10:27] VITALS: BP 125/74; PULSE 49; RESP 18; TEMP 36.7; O2SAT 97
--- NOTE | 2019-04-30 10:55 | P.PNONC_ITS ---
PN -Subjective Interval history: Diagnosis: Seminoma, initially T1b N0, but later found to have retroperitoneal adenopathy. Previous treatment: 1. Orchiectomy in April 2018 2. 4 cycles of EP finishing December 2018. Interval history: Patient is a 33-year-old man who returns today for follow-up of seminoma. He underwent orchiectomy initially in April 2018. Shortly thereafter he was found to have an enlarged retroperitoneal lymph node. On close follow-up initially shrank a little bit but then continued to grow. Because of that, he started on chemotherapy with etoposide and cisplatin. He has completed 4 planned courses in December 2018. Since his last visit here, he has been feeling generally well and has no specific complaints. His appetite and energy level have been good. He has been running regularly up to 6 miles at a time. He denies any shortness of breath or cough. No fevers chills or sweats. He has not noticed any adenopathy. Bowels have been moving normally. He has no long-lasting effects from his chemotherapy. He denies any other changes in his health. His not taking any medications. - Patient Self-Reported Symptoms SR Constitution: Chills, Weight loss/gain SR ears, nose, mouth, throat issues: Nose bleeds SR respiratory issues: Cough SR Cardiovascular issues: Shortness of breath with activity or lying flat SR Skin issues: Dry skin SR Gastrointestinal issues: Change in bowel pattern, Constipation SR Musculoskeletal issues: Back or neck pain Home Medications and Allergies Home Medications Medication Instructions Recorded Confirmed Type acetaminophen 1,000 mg PO Q6H #30 cap 04/03/19 04/16/19 Rx ketoconazole 0.5 oz DAILY 04/03/19 04/16/19 History Allergies Allergy/AdvReac Type Severity Reaction Status Date / Time No Known Drug Allergies Allergy Verified 04/16/19 10:49 Exam Vital signs: Vital Signs Temp Pulse Resp BP Pulse Ox 04/30/19 10:27 98.1 F 49 L 18 125/74 97 Intake and Output 04/29/19 04/30/19 04/30/19 23:59 07:59 15:59 Other: Weight 77.8 kg Patient Weight 04/30/19 23:59 Weight 77.8 kg - Constitutional positive no acute distress, positive average body habitus - Routine HEENT Exam Head: Present: normocephalic, atraumatic Eye: Present: EOMI, PERRL. Absent: conjunctival icterus, scleral injection ENT: Present: mucous membranes moist, oropharynx clear - Routine Neck Exam Present: supple. Absent: lymphadenopathy, thyromegaly - Routine Respiratory Exam Present: Clear to auscultation bilaterally. Absent: rales, wheezes - Routine Cardiovascular Exam Present: RRR, S1, S2. Absent: murmur - Routine Abdominal Exam Present: soft, normoactive bowel sounds. Absent: tenderness, organomegaly, mass - Routine Extremities Exam Absent: cyanosis, clubbing, edema - Routine Skin Exam Present: intact. Absent: petechiae, rash - Routine Neurological Exam Present: alert, oriented X3 - Routine Psychiatric Exam Present: normal affect, normal thought process Results - Labs Laboratory Last Values WBC 3.7 X10^3/uL (4.5-11.0) L 02/18/19 08:10 RBC 3.71 X10^6/uL (4.5-5.9) L 02/18/19 08:10 Hgb 13.2 g/dL (13.5-17.5) L 02/18/19 08:10 Hct 38.4 % (41-53) L 02/18/19 08:10 MCV 103.4 fL (80-100) H 02/18/19 08:10 MCH 35.6 PG (26-34) H 02/18/19 08:10 MCHC 34.5 % (30-36) 02/18/19 08:10 RDW 14.4 % (11.6-14.8) 02/18/19 08:10 Plt Count 172 X10^3/uL (150-400) 02/18/19 08:10 Neut % (Auto) 53.8 % (50-75) 02/18/19 08:10 Lymph % (Auto) 25.8 % (25-40) 02/18/19 08:10 [place] % (Auto) 15.8 % (3-14) H 02/18/19 08:10 Eos % (Auto) 3.8 % (2-4) 02/18/19 08:10 Baso % (Auto) 0.8 % (0-2) 02/18/19 08:10 Neut # (Auto) 2000 /uL (2590-2018) 02/18/19 08:10 Lymph # (Auto) 1000 /uL (1027-2483) L 02/18/19 08:10 [place] # (Auto) 600 /uL (0-900) 02/18/19 08:10 Eos # (Auto) 100 /uL (0-450) 02/18/19 08:10 Baso # (Auto) 0 /uL (0-100) 02/18/19 08:10 Total Counted 100 01/22/19 10:23 Seg Neutrophils % 31.0 % (38-70) L 01/22/19 10:23 Band Neutrophils % 6.0 % (3-7) 01/22/19 10:23 Lymphocytes % (Manual) 42.0 % (25-45) 01/22/19 10:23 Atypical Lymphs % 6.0 % (-0) H 01/07/19 08:08 Monocytes % (Manual) 12.0 % (2-11) H 01/22/19 10:23 Eosinophils % (Manual) 2.0 % (2-4) 01/22/19 10:23 Basophils % (Manual) 2.0 % (0-1) H 01/22/19 10:23 Metamyelocytes % 1.0 % (-0) H 01/22/19 10:23 Myelocytes % 4.0 % (-0) H 01/22/19 10:23 Neutrophils # (Manual) 1073 /uL (9905-3935) L 01/22/19 10:23 Nucleated RBCs 2 #/Diff (-0) H 01/02/19 08:26 Toxic Granulation Present H 01/07/19 08:08 Platelet Estimate Adequate on smear 01/07/19 08:08 RBC Morphology See below 01/22/19 10:23 Polychromasia 1+ H 01/22/19 10:23 Hypochromasia 1+ H 01/07/19 08:08 Poikilocytosis 1+ H 01/14/19 09:50 Anisocytosis 2+ H 01/22/19 10:23 Microcytosis 1+ H 01/07/19 08:08 Macrocytosis 1+ H 01/07/19 08:08 Tear Drop Cells 1+ H 01/07/19 08:08 Ovalocytes 2+ H 01/07/19 08:08 [place] Cells 1+ H 01/07/19 08:08 Rouleaux 1+ H 02/11/19 08:25 Sodium 136 mmol/L (137-145) L 02/18/19 08:10 Potassium 4.4 mmol/L (3.4-5.1) 02/18/19 08:10 Chloride 103 mmol/L (98-107) 02/18/19 08:10 Carbon Dioxide 25 mmol/L (22-32) 02/18/19 08:10 BUN 19 mg/dL (9-20) 02/18/19 08:10 Creatinine 0.80 mg/dL (0.66-1.25) 02/18/19 08:10 Estimated GFR > 60.0 mL/min (>60) 02/18/19 08:10 BUN/Creatinine Ratio 23.8 (6-22) H 02/18/19 08:10 Glucose 85 mg/dL (70-100) 02/18/19 08:10 Calcium 9.0 mg/dL (8.4-10.2) 02/18/19 08:10 Total Bilirubin 0.8 mg/dL (0.2-1.3) 02/18/19 08:10 AST 84 IU/L (17-59) H 02/18/19 08:10 ALT 202 IU/L (21-72) H 02/18/19 08:10 Alkaline Phosphatase 78 U/L (38-126) 02/18/19 08:10 Lactate Dehydrogenase 440 U/L (313-618) 02/18/19 08:10 Total Protein 6.9 g/dL (6.3-8.2) 02/18/19 08:10 Albumin 4.5 g/dL (3.5-5.0) 02/18/19 08:10 Globulin 2.4 g/dL (1.7-4.1) 02/18/19 08:10 Albumin/Globulin Ratio 1.9 (1.0-2.8) 02/18/19 08:10 Alpha Fetoprotein 4.8 ng/mL (< 6.1) 02/18/19 08:10 HCG, Quant < 2.39 mIU/mL (-2.40) 02/18/19 08:10 Assessment and Plan (1) Seminoma of right testis, stage 1 Problem details: Right-sided pure seminoma Stage IA (pT1b N0 M0 S0) status post right radical orchiectomy on 05/04/2018. 33-year-old with a history of seminoma with lymph node metastasis. He has completed his chemotherapy about 3 months ago about 3 months ago. He has no evidence of disease and is doing well. He will return to clinic in about 3 months for follow up. He will be due for a CT scan, CXR and lab work then. It is overwhelming likely that he is cured of his disease, but will need regular follow up.
--- NOTE | 2019-05-07 13:13 | ONC.MSW ---
Description: Second letter for pt's employer. Activity: Pt called requesting a second letter be written for the [employer] explaining that pt does not need a second pulmonary test due to not having taken Bleomycin. CASH APPLICATION REPRESENTATIVE completed the letter, Dr. Walker signed it. CASH APPLICATION REPRESENTATIVE scanned and emailed pt the letter, his last lab results, and Dr. Walker's last chart note, per pt's request.
[2019-07-11 13:23] LABS: Add Manual Diff / Slide Review NO; Basophils Absolute Auto 0 /uL (0-100); Basophils Percent Auto 0.6 % (0-2); Eosinophils Absolute Auto 100 /uL (0-450); Eosinophils Percent Auto 2.4 % (2-4); Hematocrit 42.7 % (41-53); Hemoglobin 14.7 g/dL (13.5-17.5); Lymphocytes Absolute Auto 1400 /uL (1100-4500); Lymphocytes Percent Auto 31.1 % (25-40); Mean Corpuscular HGB Conc 34.4 % (30-36); Mean Corpuscular Volume 95.9 fL (80-100); Monocytes Absolute Auto 500 /uL (0-900); Monocytes Percent Auto 10.4 % (3-14); Neutrophils Absolute Auto 2500 /uL (1500-7000); Neutrophils Percent Auto 55.5 % (50-75); Platelet Count 186 X10^3/uL (150-400); Red Blood Cell Count 4.45 X10^6/uL (4.5-5.9); Red Cell Distribution Width 13.9 % (11.6-14.8); White Blood Cell Count 4.5 X10^3/uL (4.5-11.0)
[2019-07-11 13:39] LABS: Alanine Aminotransferase 34 IU/L (21-72); Albumin 4.8 g/dL (3.5-5.0); Albumin Globulin Ratio 1.8 (1.0-2.8); Alkaline Phosphatase 93 U/L (38-126); Aspartate Aminotransferase 32 IU/L (17-59); BUN Creatinine Ratio 28.8 (6-22); Bilirubin Total 0.7 mg/dL (0.2-1.3); Blood Urea Nitrogen 23 mg/dL (9-20); Calcium 9.7 mg/dL (8.4-10.2); Carbon Dioxide 26 mmol/L (22-32); Chloride 100 mmol/L (98-107); Estimated Glomerular Filt Rate > 60.0 mL/min (>60); Globulin 2.6 g/dL (1.7-4.1); Glucose 93 mg/dL (70-100); HEMOLYSIS < 15 (0-50); Lactate Dehydrogenase 406 U/L (313-618); Potassium 4.6 mmol/L (3.4-5.1); Sodium 138 mmol/L (137-145); Total Protein 7.4 g/dL (6.3-8.2)
[2019-07-11 14:26] LABS: HCG Quantitative /Beta subunit < 2.39 mIU/mL (-2.40)
[2019-07-13 16:01] LABS: Alpha Fetoprotein 5.7 ng/mL (< 6.1)
[2019-07-23 15:28] VITALS: BP 108/69; PULSE 88; RESP 20; TEMP 36.4; O2SAT 98
--- NOTE | 2019-07-23 15:57 | ONC.PN ---
PN -Subjective Interval history: Diagnosis: Seminoma, initially T1b N0, but later found to have retroperitoneal adenopathy. Previous treatment: 1. Orchiectomy in April 2018 2. 4 cycles of EP finishing December 2018. Interval history: Patient is a 34-year-old man who returns today for follow-up of seminoma. He underwent orchiectomy initially in April 2018. Shortly thereafter he was found to have an enlarged retroperitoneal lymph node. On close follow-up initially shrank a little bit but then continued to grow. Because of that, he started on chemotherapy with etoposide and cisplatin. He has completed 4 planned courses in December 2018. Since his last visit here, he has been feeling generally well and has no specific complaints. His appetite and energy level have been good. He has been running regularly and has recently completed and half marathon. He denies any shortness of breath or cough. No fevers chills or sweats. He has not noticed any adenopathy. Bowels have been moving normally. He has no long-lasting effects from his chemotherapy. He has not noticed any neuropathy. No ringing in the ears. He denies any other changes in his health. He has returned to full flight status. His not taking any medications. - Patient Self-Reported Symptoms SR Constitution: Chills, Weight loss/gain SR ears, nose, mouth, throat issues: Nose bleeds SR respiratory issues: Cough SR Cardiovascular issues: Shortness of breath with activity or lying flat SR Skin issues: Dry skin SR Gastrointestinal issues: Change in bowel pattern, Constipation SR Musculoskeletal issues: Back or neck pain Home Medications and Allergies Home Medications Medication Instructions Recorded Confirmed Type acetaminophen 1,000 mg PO Q6H #30 cap 04/03/19 04/16/19 Rx ketoconazole 0.5 oz DAILY 04/03/19 04/16/19 History Allergies Allergy/AdvReac Type Severity Reaction Status Date / Time No Known Drug Allergies Allergy Verified 04/16/19 10:49 Exam Vital signs: Vital Signs Temp Pulse Resp BP Pulse Ox 07/23/19 15:28 97.5 F L 88 20 108/69 98 Intake and Output 07/22/19 07/23/19 07/23/19 23:59 07:59 15:59 Other: Weight 76 kg Patient Weight 07/23/19 23:59 Weight 76 kg - Constitutional positive no acute distress, positive average body habitus - Routine HEENT Exam Head: Present: normocephalic, atraumatic Eye: Present: EOMI, PERRL. Absent: conjunctival icterus, scleral injection ENT: Present: mucous membranes moist, oropharynx clear, dentition normal - Routine Neck Exam Present: supple. Absent: lymphadenopathy, thyromegaly - Routine Respiratory Exam Present: Clear to auscultation bilaterally. Absent: rales, wheezes - Routine Cardiovascular Exam Present: RRR, S1, S2. Absent: murmur - Routine Abdominal Exam Present: soft, normoactive bowel sounds. Absent: tenderness, organomegaly, mass - Routine Extremities Exam Absent: cyanosis, clubbing, edema - Routine Back/Spine Exam Back/Spine: Absent: vertebral tenderness - Routine Skin Exam Present: intact. Absent: petechiae, rash - Routine Neurological Exam Present: alert, oriented X3 - Routine Psychiatric Exam Present: normal affect, normal thought process Results - Labs Laboratory Last Values WBC 4.5 X10^3/uL (4.5-11.0) 07/11/19 13:09 RBC 4.45 X10^6/uL (4.5-5.9) L 07/11/19 13:09 Hgb 14.7 g/dL (13.5-17.5) 07/11/19 13:09 Hct 42.7 % (41-53) 07/11/19 13:09 MCV 95.9 fL (80-100) 07/11/19 13:09 MCH 33.0 PG (26-34) 07/11/19 13:09 MCHC 34.4 % (30-36) 07/11/19 13:09 RDW 13.9 % (11.6-14.8) 07/11/19 13:09 Plt Count 186 X10^3/uL (150-400) 07/11/19 13:09 Neut % (Auto) 55.5 % (50-75) 07/11/19 13:09 Lymph % (Auto) 31.1 % (25-40) 07/11/19 13:09 [place] % (Auto) 10.4 % (3-14) 07/11/19 13:09 Eos % (Auto) 2.4 % (2-4) 07/11/19 13:09 Baso % (Auto) 0.6 % (0-2) 07/11/19 13:09 Neut # (Auto) 2500 /uL (9713-4851) 07/11/19 13:09 Lymph # (Auto) 1400 /uL (9027-3550) 07/11/19 13:09 [place] # (Auto) 500 /uL (0-900) 07/11/19 13:09 Eos # (Auto) 100 /uL (0-450) 07/11/19 13:09 Baso # (Auto) 0 /uL (0-100) 07/11/19 13:09 Total Counted 100 01/22/19 10:23 Seg Neutrophils % 31.0 % (38-70) L 01/22/19 10:23 Band Neutrophils % 6.0 % (3-7) 01/22/19 10:23 Lymphocytes % (Manual) 42.0 % (25-45) 01/22/19 10:23 Atypical Lymphs % 6.0 % (-0) H 01/07/19 08:08 Monocytes % (Manual) 12.0 % (2-11) H 01/22/19 10:23 Eosinophils % (Manual) 2.0 % (2-4) 01/22/19 10:23 Basophils % (Manual) 2.0 % (0-1) H 01/22/19 10:23 Metamyelocytes % 1.0 % (-0) H 01/22/19 10:23 Myelocytes % 4.0 % (-0) H 01/22/19 10:23 Neutrophils # (Manual) 1073 /uL (1002-8979) L 01/22/19 10:23 Nucleated RBCs 2 #/Diff (-0) H 01/02/19 08:26 Toxic Granulation Present H 01/07/19 08:08 Platelet Estimate Adequate on smear 01/07/19 08:08 RBC Morphology See below 01/22/19 10:23 Polychromasia 1+ H 01/22/19 10:23 Hypochromasia 1+ H 01/07/19 08:08 Poikilocytosis 1+ H 01/14/19 09:50 Anisocytosis 2+ H 01/22/19 10:23 Microcytosis 1+ H 01/07/19 08:08 Macrocytosis 1+ H 01/07/19 08:08 Tear Drop Cells 1+ H 01/07/19 08:08 Ovalocytes 2+ H 01/07/19 08:08 [place] Cells 1+ H 01/07/19 08:08 Rouleaux 1+ H 12/10/18 08:25 Sodium 138 mmol/L (137-145) 07/11/19 13:09 Potassium 4.6 mmol/L (3.4-5.1) 07/11/19 13:09 Chloride 100 mmol/L (98-107) 07/11/19 13:09 Carbon Dioxide 26 mmol/L (22-32) 07/11/19 13:09 BUN 23 mg/dL (9-20) H 07/11/19 13:09 Creatinine 0.80 mg/dL (0.66-1.25) 07/11/19 13:09 Estimated GFR > 60.0 mL/min (>60) 07/11/19 13:09 BUN/Creatinine Ratio 28.8 (6-22) H 07/11/19 13:09 Glucose 93 mg/dL (70-100) 07/11/19 13:09 Calcium 9.7 mg/dL (8.4-10.2) 07/11/19 13:09 Total Bilirubin 0.7 mg/dL (0.2-1.3) 07/11/19 13:09 AST 32 IU/L (17-59) 07/11/19 13:09 ALT 34 IU/L (21-72) 07/11/19 13:09 Alkaline Phosphatase 93 U/L (38-126) 07/11/19 13:09 Lactate Dehydrogenase 406 U/L (313-618) 07/11/19 13:09 Total Protein 7.4 g/dL (6.3-8.2) 07/11/19 13:09 Albumin 4.8 g/dL (3.5-5.0) 07/11/19 13:09 Globulin 2.6 g/dL (1.7-4.1) 07/11/19 13:09 Albumin/Globulin Ratio 1.8 (1.0-2.8) 07/11/19 13:09 Alpha Fetoprotein 5.7 ng/mL (< 6.1) 07/11/19 13:09 HCG, Quant < 2.39 mIU/mL (-2.40) 07/11/19 13:09 Assessment and Plan (1) Seminoma of right testis, stage 1 Problem details: Right-sided pure seminoma Stage IA (pT1b N0 M0 S0) status post right radical orchiectomy on 05/04/2018. 33-year-old with a history of seminoma with lymph node metastasis. He has completed his chemotherapy about about 6 months ago. His laboratory evaluation shows no evidence of recurrence. Likewise, his CT scan shows no evidence of disease. He remains in remission. He has no evidence of disease and is doing well. He will return to clinic in about 3 months for follow up. andHe will be due for lab work then. He will be due for a repeat CT scan in 1 year and a chest x-ray in 6 months. It is overwhelming likely that he is cured of his disease, but will need regular follow up.
[2019-10-08 16:54] LABS: HCG Quantitative /Beta subunit < 2.39 mIU/mL (-2.40)
[2019-10-10 16:50] LABS: Alpha Fetoprotein 5.8 ng/mL (< 6.1)
[2019-10-16 14:54] VITALS: BP 116/81; PULSE 70; RESP 18; TEMP 36.6; O2SAT 97
--- NOTE | 2019-10-16 15:12 | ONC.PN ---
PN -Subjective Interval history: Diagnosis: Seminoma, initially T1b N0, but later found to have retroperitoneal adenopathy. Previous treatment: 1. Orchiectomy in April 2018 2. 4 cycles of EP finishing December 2018. Interval history: Patient is a 34-year-old man who returns today for follow-up of seminoma. He underwent orchiectomy initially in April 2018. Shortly thereafter he was found to have an enlarged retroperitoneal lymph node. On close follow-up initially shrank a little bit but then continued to grow. Because of that, he started on chemotherapy with etoposide and cisplatin. He has completed 4 planned courses in December 2018. Since his last visit here, he has been feeling generally well and has no specific complaints. His appetite and energy level have been good. He has been running regularly. He denies any shortness of breath or cough. No fevers chills or sweats. He has not noticed any adenopathy. Bowels have been moving normally. He has no long-lasting effects from his chemotherapy. He has not noticed any neuropathy. No ringing in the ears. He did notice some swelling behind the nipple on the left on the chest wall. He had an ultrasound done that showed only mild gynecomastia. It was initially somewhat tender but it has since improved. He denies any other changes in his health. He has returned to full flight status. His not taking any medications. - Patient Self-Reported Symptoms SR Constitution: Chills, Weight loss/gain SR ears, nose, mouth, throat issues: Nose bleeds SR respiratory issues: Cough SR Cardiovascular issues: Shortness of breath with activity or lying flat SR Skin issues: Dry skin SR Gastrointestinal issues: Change in bowel pattern, Constipation SR Musculoskeletal issues: Back or neck pain Home Medications and Allergies Allergies Allergy/AdvReac Type Severity Reaction Status Date / Time No Known Drug Allergies Allergy Verified 04/16/19 10:49 Exam Vital signs: Vital Signs Temp Pulse Resp BP Pulse Ox 10/16/19 14:54 97.8 F 70 18 116/81 97 Intake and Output 10/15/19 10/16/19 10/16/19 23:59 07:59 15:59 Other: Weight 75.4 kg Patient Weight 10/16/19 23:59 Weight 75.4 kg - Constitutional positive no acute distress, positive average body habitus - Routine HEENT Exam Head: Present: normocephalic, atraumatic Eye: Present: EOMI, PERRL. Absent: conjunctival icterus, scleral injection ENT: Present: mucous membranes moist, oropharynx clear - Routine Neck Exam Present: supple. Absent: lymphadenopathy, thyromegaly - Routine Chest/Breast/Axilla Exam Axillae: Absent: lymphadenopathy - Routine Respiratory Exam Present: Clear to auscultation bilaterally. Absent: rales, wheezes - Routine Cardiovascular Exam Present: RRR, S1, S2. Absent: murmur - Routine Abdominal Exam Present: soft, normoactive bowel sounds. Absent: tenderness, organomegaly, mass - Routine Extremities Exam Absent: cyanosis, clubbing, edema - Routine Back/Spine Exam Back/Spine: Absent: vertebral tenderness - Routine Skin Exam Present: intact. Absent: petechiae, rash - Routine Neurological Exam Present: alert, oriented X3 - Routine Psychiatric Exam Present: normal affect, normal thought process Results - Labs Laboratory Last Values WBC 4.5 X10^3/uL (4.5-11.0) 07/11/19 13:09 RBC 4.45 X10^6/uL (4.5-5.9) L 07/11/19 13:09 Hgb 14.7 g/dL (13.5-17.5) 07/11/19 13:09 Hct 42.7 % (41-53) 07/11/19 13:09 MCV 95.9 fL (80-100) 07/11/19 13:09 MCH 33.0 PG (26-34) 07/11/19 13:09 MCHC 34.4 % (30-36) 07/11/19 13:09 RDW 13.9 % (11.6-14.8) 07/11/19 13:09 Plt Count 186 X10^3/uL (150-400) 07/11/19 13:09 Neut % (Auto) 55.5 % (50-75) 07/11/19 13:09 Lymph % (Auto) 31.1 % (25-40) 07/11/19 13:09 [place] % (Auto) 10.4 % (3-14) 07/11/19 13:09 Eos % (Auto) 2.4 % (2-4) 07/11/19 13:09 Baso % (Auto) 0.6 % (0-2) 07/11/19 13:09 Neut # (Auto) 2500 /uL (8425-5875) 07/11/19 13:09 Lymph # (Auto) 1400 /uL (9092-4510) 07/11/19 13:09 [place] # (Auto) 500 /uL (0-900) 07/11/19 13:09 Eos # (Auto) 100 /uL (0-450) 07/11/19 13:09 Baso # (Auto) 0 /uL (0-100) 07/11/19 13:09 Total Counted 100 01/22/19 10:23 Seg Neutrophils % 31.0 % (38-70) L 01/22/19 10:23 Band Neutrophils % 6.0 % (3-7) 01/22/19 10:23 Lymphocytes % (Manual) 42.0 % (25-45) 01/22/19 10:23 Atypical Lymphs % 6.0 % (-0) H 01/07/19 08:08 Monocytes % (Manual) 12.0 % (2-11) H 01/22/19 10:23 Eosinophils % (Manual) 2.0 % (2-4) 01/22/19 10:23 Basophils % (Manual) 2.0 % (0-1) H 01/22/19 10:23 Metamyelocytes % 1.0 % (-0) H 01/22/19 10:23 Myelocytes % 4.0 % (-0) H 01/22/19 10:23 Neutrophils # (Manual) 1073 /uL (0645-0212) L 01/22/19 10:23 Nucleated RBCs 2 #/Diff (-0) H 01/02/19 08:26 Toxic Granulation Present H 01/07/19 08:08 Platelet Estimate Adequate on smear 01/07/19 08:08 RBC Morphology See below 01/22/19 10:23 Polychromasia 1+ H 01/22/19 10:23 Hypochromasia 1+ H 01/07/19 08:08 Poikilocytosis 1+ H 01/14/19 09:50 Anisocytosis 2+ H 01/22/19 10:23 Microcytosis 1+ H 01/07/19 08:08 Macrocytosis 1+ H 01/07/19 08:08 Tear Drop Cells 1+ H 01/07/19 08:08 Ovalocytes 2+ H 01/07/19 08:08 [place] Cells 1+ H 01/07/19 08:08 Rouleaux 1+ H 12/10/18 08:25 Sodium 138 mmol/L (137-145) 07/11/19 13:09 Potassium 4.6 mmol/L (3.4-5.1) 07/11/19 13:09 Chloride 100 mmol/L (98-107) 07/11/19 13:09 Carbon Dioxide 26 mmol/L (22-32) 07/11/19 13:09 BUN 23 mg/dL (9-20) H 07/11/19 13:09 Creatinine 0.80 mg/dL (0.66-1.25) 07/11/19 13:09 Estimated GFR > 60.0 mL/min (>60) 07/11/19 13:09 BUN/Creatinine Ratio 28.8 (6-22) H 07/11/19 13:09 Glucose 93 mg/dL (70-100) 07/11/19 13:09 Calcium 9.7 mg/dL (8.4-10.2) 07/11/19 13:09 Total Bilirubin 0.7 mg/dL (0.2-1.3) 07/11/19 13:09 AST 32 IU/L (17-59) 07/11/19 13:09 ALT 34 IU/L (21-72) 07/11/19 13:09 Alkaline Phosphatase 93 U/L (38-126) 07/11/19 13:09 Lactate Dehydrogenase 406 U/L (313-618) 07/11/19 13:09 Total Protein 7.4 g/dL (6.3-8.2) 07/11/19 13:09 Albumin 4.8 g/dL (3.5-5.0) 07/11/19 13:09 Globulin 2.6 g/dL (1.7-4.1) 07/11/19 13:09 Albumin/Globulin Ratio 1.8 (1.0-2.8) 07/11/19 13:09 Alpha Fetoprotein 5.8 ng/mL (< 6.1) 10/08/19 15:47 Alpha Fetoprotein 6.0 ng/mL (< 6.1) 10/08/19 15:47 HCG, Quant < 2.39 mIU/mL (-2.40) 10/08/19 15:47 HCG, Quant < 2.39 mIU/mL (-2.40) 10/08/19 15:47 Assessment and Plan (1) Seminoma of right testis, stage 1 Problem details: Right-sided pure seminoma Stage IA (pT1b N0 M0 S0) status post right radical orchiectomy on 05/04/2018. 33-year-old with a history of seminoma with lymph node metastasis. He has completed his chemotherapy about about 9 months ago. He has no evidence of disease and is doing well. He'll return to clinic in 3 months for follow-up. He'll be due for lab work and a chest x-ray. He'll be due for his CT scan in June of next year.
--- NOTE | 2019-10-16 15:19 | ONC.SCHED ---
patient will schedule chest xray in December . . . he is in the and isn't sure where he'll be for sure but he will call [facility] and get an auth for the chest xray if need be . . . he'll let us know if the end of december appointment will still work. He'll do the labs at the same time.
--- NOTE | 2020-01-21 13:53 | DI.RAD.S_ITS ---
PROCEDURE: XR CHEST 2V INDICATIONS: h/o testicular cancer TECHNIQUE: 2 views of the chest were acquired. COMPARISON: [facility], CR, XR CHEST 1V, 12/15/2018, 20:24. [facility], CR, XR CHEST 1V, 10/24/2018, 16:32. [facility], CT, CT CHEST ABD PEL W CON, 07/11/2019, 13:36. [facility], CR, XR CHEST 2V, 07/11/2019, 12:48. FINDINGS: Surgical changes and devices: None. Lungs and pleura: Scattered subsegmental atelectasis and/or scarring. No focal consolidation. No pleural effusions or pneumothorax. Mediastinum: Mediastinal contours are normal. Heart size is normal. Bones and chest wall: No suspicious bony abnormalities. Soft tissues appear unremarkable. IMPRESSION: No acute or metastatic disease appreciated. Dictated by: Genaro AYALA Interpreted: Quang Ma MD on 01/21/2020 at 14:21 Approved by: Quang Ma M.D. on 01/21/2020 at 17:03
[2020-01-21 15:19] LABS: Add Manual Diff / Slide Review NO; Basophils Absolute Auto 0 /uL (0-100); Basophils Percent Auto 0.5 % (0-2); Eosinophils Absolute Auto 100 /uL (0-450); Eosinophils Percent Auto 2.8 % (2-4); Hematocrit 43.2 % (41-53); Hemoglobin 14.9 g/dL (13.5-17.5); Lymphocytes Absolute Auto 1700 /uL (1100-4500); Lymphocytes Percent Auto 39.3 % (25-40); Mean Corpuscular HGB Conc 34.4 % (30-36); Mean Corpuscular Hemoglobin 32.4 PG (26-34); Mean Corpuscular Volume 94.2 fL (80-100); Monocytes Absolute Auto 400 /uL (0-900); Monocytes Percent Auto 8.6 % (3-14); Neutrophils Absolute Auto 2100 /uL (1500-7000); Neutrophils Percent Auto 48.8 % (50-75); Platelet Count 187 X10^3/uL (150-400); Red Blood Cell Count 4.59 X10^6/uL (4.5-5.9); Red Cell Distribution Width 13.3 % (11.6-14.8); White Blood Cell Count 4.2 X10^3/uL (4.5-11.0)
[2020-01-21 15:32] LABS: Alanine Aminotransferase 20 IU/L (<50); Albumin 4.5 g/dL (3.5-5.0); Albumin Globulin Ratio 1.8 (1.0-2.8); Alkaline Phosphatase 71 U/L (38-126); Aspartate Aminotransferase 26 IU/L (17-59); BUN Creatinine Ratio 18.1 (6-22); Bilirubin Total 0.9 mg/dL (0.2-1.3); Blood Urea Nitrogen 15 mg/dL (9-20); Calcium 9.7 mg/dL (8.4-10.2); Carbon Dioxide 27 mmol/L (22-32); Chloride 105 mmol/L (98-107); Estimated Glomerular Filt Rate > 60.0 mL/min (>60); Globulin 2.5 g/dL (1.7-4.1); Glucose 106 mg/dL (70-100); HEMOLYSIS < 15 (0-50); Lactate Dehydrogenase 342 U/L (313-618); Potassium 3.9 mmol/L (3.4-5.1); Sodium 138 mmol/L (137-145)
[2020-01-21 15:48] LABS: HCG Quantitative /Beta subunit < 2.4 mIU/mL (-2.40)
[2020-01-22 08:38] LABS: Alpha Fetoprotein 6.2 ng/mL (0.0-8.3)
--- NOTE | 2020-01-29 09:17 | P.PNONC_ITS ---
PN -Subjective Interval history: Diagnosis: Right testicular seminoma, initially T1b N0, but later found to have retroperitoneal adenopathy. Previous treatment: 1. Right orchiectomy April 2018 2. 4 cycles of EP completed December 2018. Interval history: The patient is a 34-year-old man who returns today for follow-up of right testicular seminoma. He underwent right orchiectomy in April 2018. Shortly thereafter he was found to have an enlarged retroperitoneal lymph node. On close follow-up initially shrank a little bit, but then continued to grow. Because of that, he started on chemotherapy with etoposide and cisplatin. He completed 4 planned courses in December 2018. Since his last visit, he has been feeling generally well, but over the past couple weeks notes increased discomfort in the left testicle. He is concerned about recurrence. His appetite and energy level have been good. He has been running regularly. He denies any shortness of breath or cough. No fevers chills or sweats. He has not noticed any adenopathy. Bowels have been moving normally. He has no long- lasting effects from his chemotherapy. No shortness of breath. He has not noticed any neuropathy. No ringing in the ears. He did notice some swelling behind the nipple on the left on the chest wall. He had an ultrasound done that showed only mild gynecomastia. It was initially somewhat tender but it has since improved. He denies any other changes in his health. He has returned to full flight status. He is not taking any medications. Chest x-ray on 01/21/2020 showed no acute disease. - Patient Self-Reported Symptoms SR Constitution: Chills, Weight loss/gain SR ears, nose, mouth, throat issues: Nose bleeds SR respiratory issues: Cough SR Cardiovascular issues: Shortness of breath with activity or lying flat SR Skin issues: Dry skin SR Gastrointestinal issues: Change in bowel pattern, Constipation SR Musculoskeletal issues: Back or neck pain - Additional ROS All systems PM: reviewed and no additional remarkable complaints except as stated Additional ROS: Left testicular pain Home Medications and Allergies Allergies Allergy/AdvReac Type Severity Reaction Status Date / Time No Known Drug Allergies Allergy Verified 04/16/19 10:49 Exam Vital signs: 01/29/20 09:19 HEENT: Pupils equally round reactive to light extraocular muscles intact sclerae anicteric conjunctiva pink mucous membranes moist no oral lesions Nodes no palpable adenopathy in the neck axilla or groin Chest: Clear throughout Cardiac exam regular rate and rhythm with normal S1 and S2 Abdomen: Soft nontender with normoactive bowel tones no splenomegaly or masses Genitourinary: Status post orchiectomy Extremities: Trace pedal edema 2+ distal pulses no calf tenderness Narrative: HEENT: Pupils equally round reactive to light extraocular muscles intact sclerae anicteric conjunctiva pink mucous membranes moist no oral lesions Nodes no palpable adenopathy in the neck axilla or groin Chest: Clear throughout Cardiac exam regular rate and rhythm with normal S1 and S2 Abdomen: Soft nontender with normoactive bowel tones no splenomegaly or masses Genitourinary: Right orchiectomy Extremities: Trace pedal edema 2+ distal pulses no calf tenderness Results - Labs Laboratory Last Values WBC 4.2 X10^3/uL (4.5-11.0) L 01/21/20 13:58 RBC 4.59 X10^6/uL (4.5-5.9) 01/21/20 13:58 Hgb 14.9 g/dL (13.5-17.5) 01/21/20 13:58 Hct 43.2 % (41-53) 01/21/20 13:58 MCV 94.2 fL (80-100) 01/21/20 13:58 MCH 32.4 PG (26-34) 01/21/20 13:58 MCHC 34.4 % (30-36) 01/21/20 13:58 RDW 13.3 % (11.6-14.8) 01/21/20 13:58 Plt Count 187 X10^3/uL (150-400) 01/21/20 13:58 Neut % (Auto) 48.8 % (50-75) L 01/21/20 13:58 Lymph % (Auto) 39.3 % (25-40) 01/21/20 13:58 [place] % (Auto) 8.6 % (3-14) 01/21/20 13:58 Eos % (Auto) 2.8 % (2-4) 01/21/20 13:58 Baso % (Auto) 0.5 % (0-2) 01/21/20 13:58 Neut # (Auto) 2100 /uL (8899-7853) 01/21/20 13:58 Lymph # (Auto) 1700 /uL (2606-0514) 01/21/20 13:58 [place] # (Auto) 400 /uL (0-900) 01/21/20 13:58 Eos # (Auto) 100 /uL (0-450) 01/21/20 13:58 Baso # (Auto) 0 /uL (0-100) 01/21/20 13:58 Total Counted 100 01/22/19 10:23 Seg Neutrophils % 31.0 % (38-70) L 01/22/19 10:23 Band Neutrophils % 6.0 % (3-7) 01/22/19 10:23 Lymphocytes % (Manual) 42.0 % (25-45) 01/22/19 10:23 Atypical Lymphs % 6.0 % (-0) H 01/07/19 08:08 Monocytes % (Manual) 12.0 % (2-11) H 01/22/19 10:23 Eosinophils % (Manual) 2.0 % (2-4) 01/22/19 10:23 Basophils % (Manual) 2.0 % (0-1) H 01/22/19 10:23 Metamyelocytes % 1.0 % (-0) H 01/22/19 10:23 Myelocytes % 4.0 % (-0) H 01/22/19 10:23 Neutrophils # (Manual) 1073 /uL (4768-5839) L 01/22/19 10:23 Nucleated RBCs 2 #/Diff (-0) H 01/02/19 08:26 Toxic Granulation Present H 01/07/19 08:08 Platelet Estimate Adequate on smear 01/07/19 08:08 RBC Morphology See below 01/22/19 10:23 Polychromasia 1+ H 01/22/19 10:23 Hypochromasia 1+ H 01/07/19 08:08 Poikilocytosis 1+ H 01/14/19 09:50 Anisocytosis 2+ H 01/22/19 10:23 Microcytosis 1+ H 01/07/19 08:08 Macrocytosis 1+ H 01/07/19 08:08 Tear Drop Cells 1+ H 01/07/19 08:08 Ovalocytes 2+ H 01/07/19 08:08 [place] Cells 1+ H 01/07/19 08:08 Rouleaux 1+ H 02/11/19 08:25 Sodium 138 mmol/L (137-145) 01/21/20 13:58 Potassium 3.9 mmol/L (3.4-5.1) 01/21/20 13:58 Chloride 105 mmol/L (98-107) 01/21/20 13:58 Carbon Dioxide 27 mmol/L (22-32) 01/21/20 13:58 BUN 15 mg/dL (9-20) 01/21/20 13:58 Creatinine 0.83 mg/dL (0.66-1.25) 01/21/20 13:58 Estimated GFR > 60.0 mL/min (>60) 01/21/20 13:58 BUN/Creatinine Ratio 18.1 (6-22) 01/21/20 13:58 Glucose 106 mg/dL (70-100) H 01/21/20 13:58 Calcium 9.7 mg/dL (8.4-10.2) 01/21/20 13:58 Total Bilirubin 0.9 mg/dL (0.2-1.3) 01/21/20 13:58 AST 26 IU/L (17-59) 01/21/20 13:58 ALT 20 IU/L (<50) 01/21/20 13:58 Alkaline Phosphatase 71 U/L (38-126) 01/21/20 13:58 Lactate Dehydrogenase 342 U/L (313-618) 01/21/20 13:58 Total Protein 7.0 g/dL (6.3-8.2) 01/21/20 13:58 Albumin 4.5 g/dL (3.5-5.0) 01/21/20 13:58 Globulin 2.5 g/dL (1.7-4.1) 01/21/20 13:58 Albumin/Globulin Ratio 1.8 (1.0-2.8) 01/21/20 13:58 Alpha Fetoprotein 6.2 ng/mL (0.0-8.3) 01/21/20 13:58 HCG, Quant < 2.4 mIU/mL (-2.40) 01/21/20 13:58 Assessment and Plan (1) Seminoma of right testis, stage 1 Problem details: Right-sided pure seminoma Stage IA (pT1b N0 M0 S0) status post right radical orchiectomy on 05/04/2018. 33-year-old with a history of right testicular seminoma with lymph node metastasis. He completed chemotherapy in December 2018. No lingering toxicities of chemotherapy. However, given left testicular discomfort, obtain urgent scrotal ultrasound to evaluate for left testicular abnormality. If he has an abnormality, then we will see him back quickly. If there is no evidence of disease, then he will return to clinic in 3 months for follow-up. He'll be due for lab work. He'll be due for his CT scan in June 2020.
[2020-01-29 09:48] VITALS: BP 116/83; PULSE 55; RESP 18; TEMP 36.8; O2SAT 100
[2020-05-12 12:48] LABS: Add Manual Diff / Slide Review NO; Basophils Absolute Auto 0 /uL (0-100); Basophils Percent Auto 0.5 % (0-2); Eosinophils Absolute Auto 200 /uL (0-450); Eosinophils Percent Auto 4.7 % (2-4); Hematocrit 42.4 % (41-53); Hemoglobin 14.6 g/dL (13.5-17.5); Lymphocytes Absolute Auto 1600 /uL (1100-4500); Lymphocytes Percent Auto 34.8 % (25-40); Mean Corpuscular HGB Conc 34.5 % (30-36); Mean Corpuscular Hemoglobin 32.8 PG (26-34); Mean Corpuscular Volume 95.2 fL (80-100); Monocytes Absolute Auto 500 /uL (0-900); Monocytes Percent Auto 10.6 % (3-14); Neutrophils Absolute Auto 2200 /uL (1500-7000); Neutrophils Percent Auto 49.4 % (50-75); Platelet Count 178 X10^3/uL (150-400); Red Blood Cell Count 4.45 X10^6/uL (4.5-5.9); Red Cell Distribution Width 13.2 % (11.6-14.8); White Blood Cell Count 4.5 X10^3/uL (4.5-11.0)
[2020-05-12 13:10] LABS: Alanine Aminotransferase 17 IU/L (<50); Albumin 4.5 g/dL (3.5-5.0); Albumin Globulin Ratio 2.1 (1.0-2.8); Alkaline Phosphatase 83 U/L (38-126); Aspartate Aminotransferase 28 IU/L (17-59); BUN Creatinine Ratio 18.7 (6-22); Blood Urea Nitrogen 14 mg/dL (9-20); Calcium 9.4 mg/dL (8.4-10.2); Carbon Dioxide 28 mmol/L (22-32); Chloride 101 mmol/L (98-107); Estimated Glomerular Filt Rate > 60.0 mL/min (>60); Globulin 2.1 g/dL (1.7-4.1); Glucose 85 mg/dL (70-100); HEMOLYSIS < 15 (0-50); Lactate Dehydrogenase 377 U/L (313-618); Potassium 4.3 mmol/L (3.4-5.1); Sodium 135 mmol/L (137-145); Total Protein 6.6 g/dL (6.3-8.2)
[2020-05-12 13:22] LABS: HCG Quantitative /Beta subunit < 2.4 mIU/mL (-2.40)
[2020-05-13 06:40] LABS: Alpha Fetoprotein 6.7 ng/mL (0.0-8.3)
--- NOTE | 2020-05-21 09:40 | P.PNONC_ITS ---
PN -Subjective Interval history: Diagnosis: Right testicular seminoma, initially T1b N0, but later found to have retroperitoneal adenopathy. Previous treatment: 1. Right orchiectomy April 2018 2. 4 cycles of EP completed December 2018. Interval history: The patient is a 34-year-old man who returns today for follow-up of right testicular seminoma. He underwent right orchiectomy in April 2018. Shortly thereafter he was found to have an enlarged retroperitoneal lymph node. On close follow-up initially shrank a little bit, but then continued to grow. Because of that, he started on chemotherapy with etoposide and cisplatin. He completed 4 planned courses in December 2018. Patient came here today for scheduled follow-up visit. During his previous visit patient was complaining left testicle tenderness. Patient underwent ultrasound study which showed normal appearing left testicle, with normal appearing internal vascularity. There is small left-sided hydrocele. Since then patient said that the pain has completely resolved. Patient does not have any other signs or symptoms. Patient denies any shortness of breath or chest pa in. Denies any headache. He denies any double vision or blurred vision. Denies abdominal pain diarrhea or constipation. He is not taking any medications. - Patient Self-Reported Symptoms SR Constitution: Chills, Weight loss/gain SR ears, nose, mouth, throat issues: Nose bleeds SR respiratory issues: Cough SR Cardiovascular issues: Shortness of breath with activity or lying flat SR Skin issues: Dry skin SR Gastrointestinal issues: Change in bowel pattern, Constipation SR Musculoskeletal issues: Back or neck pain - Additional ROS All systems PM: reviewed and no additional remarkable complaints except as stated Home Medications and Allergies Allergies Allergy/AdvReac Type Severity Reaction Status Date / Time No Known Drug Allergies Allergy Verified 04/16/19 10:49 Exam Vital signs: 05/21/20 10:12 Last Vital Signs Temp 97.5 F L 05/21/20 09:43 Pulse 54 L 05/21/20 09:43 Resp 16 05/21/20 09:43 BP 111/56 L 05/21/20 09:43 Pulse Ox 98 05/21/20 09:43 - Constitutional positive no acute distress, positive average body habitus, positive cooperative - Routine HEENT Exam Head: Present: normocephalic, atraumatic Eye: Present: EOMI, PERRL, normal accommodation. Absent: conjunctival icterus ENT: Present: mucous membranes moist - Routine Neck Exam Present: supple. Absent: lymphadenopathy, thyromegaly - Routine Chest/Breast/Axilla Exam Axillae: Absent: lymphadenopathy - Routine Respiratory Exam Present: Clear to auscultation bilaterally. Absent: accessory muscle use, rale s, respiratory distress, rhonchi, stridor, wheezes, crackles - Routine Cardiovascular Exam Present: RRR, S1, S2. Absent: murmur, gallop, rubs - Routine Abdominal Exam Present: soft, normoactive bowel sounds. Absent: tenderness, distended, reboun d, organomegaly - Routine Extremities Exam Absent: edema - Routine Neurological Exam Present: alert, oriented X3, CN II-XII intact. Absent: sensory deficit, motor deficit - Routine Psychiatric Exam Present: normal affect - Additional findings Additional findings: External genitalia examination: Right testicle is absent status post previous radical orchiectomy. Left testicle is soft, nontender, measuring around 30 cc, no palpable mass or nodules. Results - Labs Laboratory Last Values WBC 4.5 X10^3/uL (4.5-11.0) 05/12/20 11:28 RBC 4.45 X10^6/uL (4.5-5.9) L 05/12/20 11:28 Hgb 14.6 g/dL (13.5-17.5) 05/12/20 11:28 Hct 42.4 % (41-53) 05/12/20 11:28 MCV 95.2 fL (80-100) 05/12/20 11:28 MCH 32.8 PG (26-34) 05/12/20 11:28 MCHC 34.5 % (30-36) 05/12/20 11:28 RDW 13.2 % (11.6-14.8) 05/12/20 11:28 Plt Count 178 X10^3/uL (150-400) 05/12/20 11:28 Neut % (Auto) 49.4 % (50-75) L 05/12/20 11:28 Lymph % (Auto) 34.8 % (25-40) 05/12/20 11:28 [place] % (Auto) 10.6 % (3-14) 05/12/20 11:28 Eos % (Auto) 4.7 % (2-4) H 05/12/20 11:28 Baso % (Auto) 0.5 % (0-2) 05/12/20 11:28 Neut # (Auto) 2200 /uL (9236-8270) 05/12/20 11:28 Lymph # (Auto) 1600 /uL (6097-3832) 05/12/20 11:28 [place] # (Auto) 500 /uL (0-900) 05/12/20 11:28 Eos # (Auto) 200 /uL (0-450) 05/12/20 11:28 Baso # (Auto) 0 /uL (0-100) 05/12/20 11:28 Total Counted 100 01/22/19 10:23 Seg Neutrophils % 31.0 % (38-70) L 01/22/19 10:23 Band Neutrophils % 6.0 % (3-7) 01/22/19 10:23 Lymphocytes % (Manual) 42.0 % (25-45) 01/22/19 10:23 Atypical Lymphs % 6.0 % (-0) H 01/07/19 08:08 Monocytes % (Manual) 12.0 % (2-11) H 01/22/19 10:23 Eosinophils % (Manual) 2.0 % (2-4) 01/22/19 10:23 Basophils % (Manual) 2.0 % (0-1) H 01/22/19 10:23 Metamyelocytes % 1.0 % (-0) H 01/22/19 10:23 Myelocytes % 4.0 % (-0) H 01/22/19 10:23 Neutrophils # (Manual) 1073 /uL (2444-4261) L 01/22/19 10:23 Nucleated RBCs 2 #/Diff (-0) H 01/02/19 08:26 Toxic Granulation Present H 01/07/19 08:08 Platelet Estimate Adequate on smear 01/07/19 08:08 RBC Morphology See below 01/22/19 10:23 Polychromasia 1+ H 01/22/19 10:23 Hypochromasia 1+ H 01/07/19 08:08 Poikilocytosis 1+ H 01/14/19 09:50 Anisocytosis 2+ H 01/22/19 10:23 Microcytosis 1+ H 01/07/19 08:08 Macrocytosis 1+ H 01/07/19 08:08 Tear Drop Cells 1+ H 01/07/19 08:08 Ovalocytes 2+ H 01/07/19 08:08 [place] Cells 1+ H 01/07/19 08:08 Rouleaux 1+ H 12/10/18 08:25 Sodium 135 mmol/L (137-145) L 05/12/20 11:28 Potassium 4.3 mmol/L (3.4-5.1) 05/12/20 11:28 Chloride 101 mmol/L (98-107) 05/12/20 11:28 Carbon Dioxide 28 mmol/L (22-32) 05/12/20 11:28 BUN 14 mg/dL (9-20) 05/12/20 11:28 Creatinine 0.75 mg/dL (0.66-1.25) 05/12/20 11:28 Estimated GFR > 60.0 mL/min (>60) 05/12/20 11:28 BUN/Creatinine Ratio 18.7 (6-22) 05/12/20 11:28 Glucose 85 mg/dL (70-100) 05/12/20 11:28 Calcium 9.4 mg/dL (8.4-10.2) 05/12/20 11:28 Total Bilirubin 1.0 mg/dL (0.2-1.3) 05/12/20 11:28 AST 28 IU/L (17-59) 05/12/20 11:28 ALT 17 IU/L (<50) 05/12/20 11:28 Alkaline Phosphatase 83 U/L (38-126) 05/12/20 11:28 Lactate Dehydrogenase 377 U/L (313-618) 05/12/20 11:28 Total Protein 6.6 g/dL (6.3-8.2) 05/12/20 11:28 Albumin 4.5 g/dL (3.5-5.0) 05/12/20 11:28 Globulin 2.1 g/dL (1.7-4.1) 05/12/20 11:28 Albumin/Globulin Ratio 2.1 (1.0-2.8) 05/12/20 11:28 Alpha Fetoprotein 6.7 ng/mL (0.0-8.3) 05/12/20 11:28 HCG, Quant < 2.4 mIU/mL (-2.40) 05/12/20 11:28 Assessment and Plan (1) Seminoma of right testis, stage 1 35-year-old with a history of right testicular seminoma with lymph node metastasis. He completed chemotherapy in December 2018. No lingering toxicities of chemotherapy. I reviewed the lab tests results with the patient. CBCs and CMPs are completely within the normal range. Beta HCG less than the lower limit of detection. LDH and AFP are within the normal range. I showed the patient the NCCN guidelines for follow-up. I also gave a follow-up schedule to the patient. Based on the guidelines, will proceed with CT of the chest abdomen pelvis in June with repeat tumor markers. We will see the patient 1 week afterwards. Thereafter I am planning to see the patient in 6 months in December 2020. Plan: CT CAP w/contrast in 06/2020, CBC, CMP, LDH, BHCG, AFP RTC one week after scan
[2020-05-21 09:43] VITALS: BP 111/56; PULSE 54; RESP 16; TEMP 36.4; O2SAT 98
--- NOTE | 2020-06-10 15:59 | ONC.SCHED ---
Submitted PA for CT C/A/P w/ to be scheduled around July 09, 2020. Patient is no to CT questions.
--- NOTE | 2020-06-18 14:59 | ONC.SCHED ---
Marianela feldman for CT C/A/P with was intercepted to [facility] again. Left message with patient [place] base and request that they release it so it can be done here.
--- NOTE | 2020-06-25 14:14 | ONC.SCHED ---
Spoke with Winsome at [facility] regarding the ROFR on the CT scans. She is going to speak with her heating and blending supervisor to see what can be done about getting the CT released to be done here at [place].
--- NOTE | 2020-06-25 15:20 | ONC.SCHED ---
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 Their understanding is that he doesn't have a problem having the CT @ the [facility].
[2020-07-20 15:55] VITALS: BP 116/68; PULSE 72; RESP 18; TEMP 37; O2SAT 97
--- NOTE | 2020-07-20 16:03 | ONC.PN ---
PN -Subjective Interval history: Diagnosis: Right testicular seminoma, initially T1b N0, but later found to have retroperitoneal adenopathy. Previous treatment: 1. Right orchiectomy April 2018 2. 4 cycles of EP completed December 2018. Interval history: The patient is a 35-year-old man who returns today for follow-up of right testicular seminoma. He underwent right orchiectomy in April 2018. Shortly thereafter he was found to have an enlarged retroperitoneal lymph node. On close follow-up initially shrank a little bit, but then continued to grow. Because of that, he started on chemotherapy with etoposide and cisplatin. He completed 4 planned courses in December 2018. No clinical complaints. He is not taking any medications. - Patient Self-Reported Symptoms SR Constitution: Chills, Weight loss/gain SR ears, nose, mouth, throat issues: Nose bleeds SR respiratory issues: Cough SR Cardiovascular issues: Shortness of breath with activity or lying flat SR Skin issues: Dry skin SR Gastrointestinal issues: Change in bowel pattern, Constipation SR Musculoskeletal issues: Back or neck pain - Additional ROS All systems PM: reviewed and no additional remarkable complaints except as stated Home Medications and Allergies Allergies Allergy/AdvReac Type Severity Reaction Status Date / Time No Known Drug Allergies Allergy Verified 04/16/19 10:49 Exam Vital signs: Vital Signs Temp Pulse Resp BP Pulse Ox 07/20/20 15:55 98.6 F 72 18 116/68 97 Intake and Output 07/20/20 07/20/20 07/20/20 07:59 15:59 23:59 Other: Weight 76.6 kg Patient Weight 07/20/20 23:59 Weight 76.6 kg - Constitutional positive no acute distress, positive average body habitus, positive cooperative - Routine HEENT Exam Head: Present: normocephalic, atraumatic Eye: Present: EOMI, PERRL. Absent: conjunctival icterus ENT: Present: mucous membranes moist - Routine Neck Exam Present: supple. Absent: lymphadenopathy - Routine Respiratory Exam Present: Clear to auscultation bilaterally. Absent: wheezes - Routine Cardiovascular Exam Present: RRR, S1, S2. Absent: murmur, gallop, rubs - Routine Abdominal Exam Present: soft. Absent: tenderness, distended - Routine Extremities Exam Absent: edema - Routine Back/Spine Exam Back/Spine: Present: full ROM. Absent: erythema - Routine Skin Exam Present: intact - Routine Neurological Exam Present: alert, oriented X3, CN II-XII intact. Absent: sensory deficit, motor deficit, normal reflexes - Routine Psychiatric Exam Present: normal affect Results - Labs 07/14/2020: WBC 6, HGB 149, HCT 43.6, PLT 195 Na 134, K 5.9, Cl 100, Bun 17, C4 0.77, Glucose 84, Ca 9.0 TB 2.3, AST 59, ALT 24, ALP 69, LDH 1209, TP 8.4, ALB 5.2 AFP 7.9, BHCG < 2.4 Assessment and Plan (1) Seminoma of right testis, stage 1 35-year-old with a history of right testicular seminoma with lymph node metastasis. He completed chemotherapy in December 2018. No lingering toxicities of chemotherapy. However the laboratory test from 07/14/2020 showed elevated LDH, elevated total bilirubin of unknown. The tumor markers of beta HCG and AFP were within the normal range. I talked with the patient that I will have the patient come back on and repeat the laboratory test. If it is abnormal, I will proceed with more imaging studies to evaluate if there is any evidence of recurrence. Otherwise I will see the patient in about 6 months. Plan: CBC, CMP on 07/23/2020, RN visit. RTC 6 month, CBC, CMP, LDH, AFP, BHCG
[2020-07-23 09:03] LABS: Add Manual Diff / Slide Review NO; Basophils Absolute Auto 0 /uL (0-100); Basophils Percent Auto 0.3 % (0-2); Eosinophils Absolute Auto 200 /uL (0-450); Eosinophils Percent Auto 3.5 % (2-4); Hematocrit 44.2 % (41-53); Hemoglobin 15.3 g/dL (13.5-17.5); Lymphocytes Absolute Auto 1400 /uL (1100-4500); Lymphocytes Percent Auto 25.9 % (25-40); Mean Corpuscular HGB Conc 34.7 % (30-36); Mean Corpuscular Hemoglobin 32.9 PG (26-34); Mean Corpuscular Volume 94.7 fL (80-100); Monocytes Absolute Auto 500 /uL (0-900); Neutrophils Absolute Auto 3300 /uL (1500-7000); Neutrophils Percent Auto 61.3 % (50-75); Platelet Count 170 X10^3/uL (150-400); Red Blood Cell Count 4.67 X10^6/uL (4.5-5.9); White Blood Cell Count 5.4 X10^3/uL (4.5-11.0)
[2020-07-23 09:15] LABS: Alanine Aminotransferase 16 IU/L (<50); Albumin 4.1 g/dL (3.5-5.0); Albumin Globulin Ratio 1.6 (1.0-2.8); Alkaline Phosphatase 80 U/L (38-126); Aspartate Aminotransferase 22 IU/L (17-59); BUN Creatinine Ratio 19.1 (6-22); Bilirubin Total 0.7 mg/dL (0.2-1.3); Blood Urea Nitrogen 17 mg/dL (9-20); Calcium 8.9 mg/dL (8.4-10.2); Carbon Dioxide 29 mmol/L (22-32); Chloride 102 mmol/L (98-107); Estimated Glomerular Filt Rate > 60.0 mL/min (>60); Globulin 2.6 g/dL (1.7-4.1); Glucose 80 mg/dL (70-100); HEMOLYSIS < 15 (0-50); Potassium 4.3 mmol/L (3.4-5.1); Sodium 137 mmol/L (137-145); Total Protein 6.7 g/dL (6.3-8.2)
[2020-07-23 10:02] LABS: Lactate Dehydrogenase 314 U/L (313-618)
--- NOTE | 2020-07-23 10:47 | PC.NURSE ---
Labs: Reviewed labs with pt, Dr. Rahman aware, no new orders received.
--- NOTE | 2021-01-14 09:00 | ONC.SCHED ---
Patient called to cancel today's appointment as his auth is not in place. 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 If his navy doctor thinks it's necessary for him to see Dr. Rahman prior to deployment, Leonidas will call us and we will schedule (when auth is in place).
== END ==
PROVIDERS: Internal Medicine Hematology & Oncology; Visit Provider Internal Medicine Hematology & Oncology
DX: Z08 Encounter for follow-up examination after completed treatment for malignant neoplasm (principal); Z85.47 Personal history of malignant neoplasm of testis; R74.0 Nonspecific elevation of levels of transaminase and lactic acid dehydrogenase [LDH]; R17 Unspecified jaundice
CPT/HCPCS: 36415; 36592; 71046; 71260; 74177; 80053; 82105; 83615; 84702; 85025; 96360; 96361; 96367; 96372; 96375; 96376; 96413; 96417; 99204; 99213; 99214; 99215; J1100; J1453; J2060; J2150; J2405; J2469; J3475; J3480; J9060; J9181; Q5110; Q9967

== ENCOUNTER 2024-04-07 08:50 | Emergency (ER) | payer OTHER, SELFPAY ==
[2024-04-07 08:56] VITALS: BP 123/85; PULSE 61; RESP 18; TEMP 36.6; O2SAT 100; BMI 24.3
--- NOTE | 2024-04-07 09:36 | ED.MALEGU ---
HPI - Male Genitourinary General Chief complaint: Urogenital-Male Stated complaint: ABD Pain groin pain Hx testicular cance Time Seen by Provider: 04/07/24 09:28 Source: patient Mode of arrival: Ambulatory History of Present Illness HPI Narrative: Patient is a 38-year-old male history testicular cancer with a right orchectomy presenting today with lower abdominal pain and testicular pain. He reports that this is his pain testicular pain but now was over on the left side. This feels similar to when he was diagnosed with testicular cancer. His low back hurts as well. Mildly nauseous. He has been taking Zofran Tylenol and Motrin at home without significant improvement. Denies any fever. Denies any sort of flank pain or history of kidney stones. States that he has been cancer-free and had his last CT scan in workup in November 2023. He currently does not want anything for pain but wants to know what is going on. Related Data Allergies Allergy/AdvReac Type Severity Reaction Status Date / Time cat dander Allergy Sneezing Verified 04/07/24 09:03 ethinyl estradiol Allergy Sneezing Verified 04/07/24 09:03 [From Seasonale (91)] levonorgestrel Allergy Sneezing Verified 04/07/24 09:03 [From Seasonale (91)] Patient History Medical History Port-A-Cath in place (10/24/18) Testicular cancer Testicular pain, right (~04/2018) Seminoma of descended right testis (~06/05/18) Surgical History History of orchiectomy, unilateral (05/04/18) History of facial surgery Family History Grandmother Lung cancer Oral cancer Other Testicular cancer Social History household members: significant other Smoking Status: Never smoker alcohol intake: current substance use type: does not use Smoking Status: Never smoker alcohol intake frequency: a few times a week Substance Use Type: does not use Exam Initial Vital Signs Initial Vital Signs: Vital Signs Temperature 97.9 F 06/09/24 08:56 Pulse Rate 61 04/07/24 08:56 Respiratory Rate 18 04/07/24 08:56 Blood Pressure 123/85 04/07/24 08:56 Pulse Oximetry 100 04/07/24 08:56 Oxygen Delivery Method Room Air 04/07/24 08:56 GENERAL: Alert pleasant 38-year-old male HEENT: Head atraumatic,EOMI, pupils reactive, face symmetric, moist mucous membranes CARDIOVASCULAR: Regular rate and rhythm without murmurs, rubs or gallops. RESPIRATORY: Breath sounds equal bilaterally, no wheezes rales or rhonchi. ABDOMEN: Soft, nontender. Normoactive bowel sounds all 4 quadrants. No guarding or rebound. : No CVA tenderness Nurse Marcy in room. No testicular swelling or erythema no hernia present no significant pain on right or left side. EXTREMITIES: Normal range of motion, no clubbing or edema. Neurovascularly intact NEUROLOGICAL: Alert and oriented x4.Normal gait and speech. SKIN: Warm, dry, no laceration, no petechiae, no rashes or lesions. Course Orders Ordered: ED Orders 04/07/24 09:36 CT abdomen pelvis w con Stat US scrotum Stat Complete Blood Count AUTO DIFF Stat Comprehensive Metabolic Panel Stat Lipase Stat Vital Signs Vital signs: Vital Signs - 8 hr 04/07/24 08:56 04/07/24 11:32 Temperature 97.9 F Pulse Rate 61 50 L Respiratory Rate 18 16 Blood Pressure 123/85 125/82 Pulse Oximetry 100 97 Oxygen Delivery Method Room Air Room Air MDM - Male Genitourinary Lab Data 04/07/24 09:36 04/07/24 09:36 Labs: Lab Results 04/07/24 Range/Units 09:36 WBC 4.5 (4.5-11.0) X10^3/uL RBC 4.55 (4.5-5.9) X10^6/uL Hgb 14.8 (13.5-17.5) g/dL Hct 42.6 (41-53) % MCV 93.6 (80-100) fL MCH 32.5 (26-34) PG MCHC 34.7 (30-36) % RDW 13.3 (11.6-14.8) % Plt Count 188 (150-400) X10^3/uL Neut % (Auto) 45.8 L (50-75) % Lymph % (Auto) 40.1 H (25-40) % [place] % (Auto) 10.0 (3-14) % Eos % (Auto) 3.5 (2-4) % Baso % (Auto) 0.6 (0-2) % Neut # (Auto) 2100 (3331-9770) /uL Lymph # (Auto) 1800 (9152-4620) /uL [place] # (Auto) 500 (0-900) /uL Eos # (Auto) 200 (0-450) /uL Baso # (Auto) 0 (0-100) /uL Sodium 139 (137-145) mmol/L Potassium 4.6 (3.4-5.1) mmol/L Chloride 107 (98-107) mmol/L Carbon Dioxide 30 (22-32) mmol/L BUN 20 (9-20) mg/dL Creatinine 0.82 (0.66-1.25) mg/dL Estimated GFR > 60 (>60) mL/min BUN/Creatinine Ratio 24.4 H (6-22) Glucose 91 (70-100) mg/dL Calcium 8.8 (8.4-10.2) mg/dL Total Bilirubin 0.8 (0.2-1.3) mg/dL AST 24 (17-59) IU/L ALT 17 (<50) IU/L Alkaline Phosphatase 70 (38-126) U/L Total Protein 6.4 (6.3-8.2) g/dL Albumin 4.3 (3.5-5.0) g/dL Globulin 2.1 (1.7-4.1) g/dL Albumin/Globulin Ratio 2.0 (1.0-2.8) Lipase 33 (23-300) U/L Urine Dip Bedside Urine Glucose Negative Bedside Urine Bilirubin - Negative Bedside Urine Ketone - Negative Urine Specific [place] 1.000 Bedside Urine Occult Blood - Negative Bedside Urine pH 6.5 Bedside Urine Protein - Negative Bedside Urine Urobilinogen - Negative Bedside Urine Nitrite - Negative Bedside Urine Leukocytes - Negative Esterase Imaging Data CT scan - abdomen/pelvis: Radiologist's Impression: PROCEDURE: CT ABDOMEN PELVIS W CON INDICATIONS: pain lower hx testicular cancer TECHNIQUE: After the administration of intravenous contrast, axial sections acquired from the lung bases to the pubic symphysis. Coronal and sagittal reformats were performed. For radiation dose reduction, the following was used: automated exposure control, adjustment of mA and/or kV according to patient size. COMPARISON: [facility], CT, CT CHEST ABD PEL W CON, 07/14/2020, 14:08. [facility], CT, CT CHEST ABD PEL W CON, 07/11/2019, 13:36. FINDINGS: Image quality: Diagnostic. Lower Chest: No significant findings. ABDOMEN: Liver: No solid mass. Gallbladder: No radiopaque gallstones or wall thickening. Biliary ducts: No biliary dilation. Pancreas: No ductal dilation. Spleen: Size is within normal limits. Incidental note is made of an accessory splenule along the hilum of the primary spleen. Adrenal Glands: No adrenal nodules. Kidneys and Ureters: No hydronephrosis. No solid mass. No complex renal cystic lesion which requires follow up. Stomach and Bowel: There is a moderate volume of stool seen within the colon. Colonic diverticulosis is seen, without findings of active diverticulitis. A normal appendix is noted. No dilated loops of small bowel are seen. Peritoneum: No abnormal intraperitoneal fluid. No free air. Ventral Wall: A mild periumbilical hernia is seen, containing fat. Abdominal Nodes: No retroperitoneal or mesenteric adenopathy by size criteria. Vessels: Aorta and inferior vena cava are normal in size. PELVIS: Pelvic Organs: Prior right orchiectomy change is seen. Bladder: No bladder wall thickening, accounting for underdistention. Pelvic Nodes: No enlarged lymph nodes. Miscellaneous: No inguinal hernias are seen. Bones: No aggressive osseous abnormality. Focal lower thoracic spine degenerative change can be seen, which is stable compared to 2020. IMPRESSION: There is a moderate amount of stool seen within the colon. Please correlate with an underlying history of constipation. Colonic diverticulosis is seen, without findings of active diverticulitis. Prior right orchiectomy change, without complication observed. Additional findings: Focal lower thoracic spine degenerative change Accessory splenule Mild fat containing periumbilical hernia. Normal appendix Dictated by: Heron Conroy M.D. on 04/07/2024 at 9:12 US scrotum: Radiologist's Impression: PROCEDURE: US SCROTUM INDICATIONS: hx testicular cancer now with pain TECHNIQUE: Real-time scanning was performed of the scrotum and testicles, with image documentation. Color and pulse Doppler interrogation was performed of both testicles. COMPARISON: [facility], CT, CT ABDOMEN PELVIS W CON, 04/07/2024, 9:54. [facility], CT, CT CHEST ABD PEL W CON, 07/14/2020, 14:08. [facility], US, US SCROTUM, 01/29/2020, 10:21. FINDINGS: Right: Resected. Left: Testicle is normal in size at 4.3 x 3.4 x 2.1 cm, and demonstrates a tiny focus of calcification superiorly, measuring less than 2 mm. Epididymis is normal in overall size and demonstrates a an 8 mm likely spermatocele. No hydrocele or varicoceles. Overlying scrotal skin is normal in thickness. Doppler: Color and pulse Doppler demonstrate normal arterial flow within the left testicle. No enlarged inguinal lymph nodes are seen. Negative for hernia on either side. IMPRESSION: No significant acute abnormality is seen. Status post right orchiectomy. No significant abnormality of the left testicle can be seen, although a tiny calcification can be seen superiorly. Within the left epididymis, there is an 8 mm likely spermatocele. Note: Concordant preliminary findings given by the laminated plastics assembler and gluer upon the completion of the examination to Dr. Daniels at 10:45 a.m. on April 07, 2024. Dictated by: Heron Conroy M.D. on 04/07/2024 at 9:56 MDM Narrative Medical decision making narrative: Patient 38-year-old male history right testicular cancer with right orchiectomy in 2018 presenting today with bilateral scrotal pain and lower abdominal pain. He feels mildly tender no vomiting. Differential diagnosis includes kidney stone, UTI, hernia, neoplasm Blood work has been reviewed no leukocytosis anemia, electrolytes and kidney function within normal limits bilirubin LFTs within normal limits Imaging reviewed CT does not show any acute abnormality mild constipation ultrasound no acute abnormality there is a 8 mm likely spermatocele Patient overall feels better imaging blood work reassuring no evidence of recurrent cancer. No cause of pain is identified at this time. Recommend supportive care follow-up as needed. Discharge Plan Departure Patient Disposition: Home Clinical Impression: Abdominal pain Instructions: DI for Abdominal Pain-Adult Activity Restrictions/Additional Instructions: *You have been diagnosed with abdominal pain *What to do: At this time blood work and imaging overall reassuring *Continue to take medications as directed *Follow up with your primary care provider in 2-3 days or call [phone] *Return to ER if you should have increasing pain persistent vomiting or any new, worsening or concerning symptoms Referrals: Javid Austin MD [Primary Care Provider] - Stand Alone Forms: Patient Portal/API
[2024-04-07 10:03] LABS: Add Manual Diff / Slide Review NO; Basophils Absolute Auto 0 /uL (0-100); Basophils Percent Auto 0.6 % (0-2); Eosinophils Absolute Auto 200 /uL (0-450); Eosinophils Percent Auto 3.5 % (2-4); Hematocrit 42.6 % (41-53); Hemoglobin 14.8 g/dL (13.5-17.5); Lymphocytes Absolute Auto 1800 /uL (1100-4500); Lymphocytes Percent Auto 40.1 % (25-40); Mean Corpuscular HGB Conc 34.7 % (30-36); Mean Corpuscular Hemoglobin 32.5 PG (26-34); Mean Corpuscular Volume 93.6 fL (80-100); Monocytes Absolute Auto 500 /uL (0-900); Neutrophils Absolute Auto 2100 /uL (1500-7000); Neutrophils Percent Auto 45.8 % (50-75); Platelet Count 188 X10^3/uL (150-400); Red Blood Cell Count 4.55 X10^6/uL (4.5-5.9); Red Cell Distribution Width 13.3 % (11.6-14.8); White Blood Cell Count 4.5 X10^3/uL (4.5-11.0)
[2024-04-07 10:15] LABS: Alanine Aminotransferase 17 IU/L (<50); Albumin 4.3 g/dL (3.5-5.0); Alkaline Phosphatase 70 U/L (38-126); Aspartate Aminotransferase 24 IU/L (17-59); BUN Creatinine Ratio 24.4 (6-22); Bilirubin Total 0.8 mg/dL (0.2-1.3); Blood Urea Nitrogen 20 mg/dL (9-20); Calcium 8.8 mg/dL (8.4-10.2); Carbon Dioxide 30 mmol/L (22-32); Chloride 107 mmol/L (98-107); Estimated Glomerular Filt Rate > 60 mL/min (>60); Globulin 2.1 g/dL (1.7-4.1); Glucose 91 mg/dL (70-100); HEMOLYSIS < 15 (0-50); Lipase 33 U/L (23-300); Potassium 4.6 mmol/L (3.4-5.1); Sodium 139 mmol/L (137-145); Total Protein 6.4 g/dL (6.3-8.2)
[2024-04-07 11:32] VITALS: BP 125/82; PULSE 50; RESP 16; O2SAT 97
== END 2024-04-07 11:32 | disposition home or self-care (01) ==
PROVIDERS: Emergency Provider Emergency Medicine
DX: R10.30 Lower abdominal pain, unspecified (principal); N50.812 Left testicular pain; M54.50 Low back pain, unspecified
CPT/HCPCS: 36415; 74177; 76870; 80053; 81003; 83690; 85025; 93976; 99283; 99284; Q9967